=== PATIENT | female | born 1960 | race Caucasian/White ===

== ENCOUNTER → 2022-10-20 07:34 | Outpatient (BNVA) | payer BC, SELFPAY | PROVIDERS: PCP Family Medicine; Visit Provider Student in an Organized Health Care Education/Training Program | DX: Z13.89 Encounter for screening for other disorder (principal) ==

== ENCOUNTER 2022-10-20 08:29 | Outpatient (REF) | payer BC, SELFPAY ==
[2022-10-20 08:50] LABS: MANUAL DIFF FLAG NO
[2022-10-20 09:18] LABS: Basophils Absolute Auto 0.1 X10*3/uL (0.0-0.2); Basophils Percent Auto 1.4 % (0-2); Eosinophils Absolute Auto 0.1 X10*3/uL (0.0-0.4); Eosinophils Percent Auto 2.3 % (0-4); Hematocrit 36.6 % (37.0-47.0); Hemoglobin 11.9 g/dl (12.0-16.0); Imm Gran Abs Auto 0.01 X10*3/uL (0.00-0.03); Imm Gran Pct Auto 0.3 % (0.0-0.4); Lymphocytes Absolute Auto 0.5 X10*3/uL (1.2-4.9); Lymphocytes Percent Auto 14.8 % (20-40); Mean Corpuscular HGB Conc 32.5 g/dl (31.0-35.0); Mean Corpuscular Volume 86.1 fL (80.0-98.0); Monocytes Absolute Auto 0.3 X10*3/uL (0.1-1.2); Monocytes Percent Auto 8.4 % (2-11); Neutrophils Absolute Auto 2.5 x10*3/uL (2.0-8.3); Neutrophils Percent Auto 72.8 % (45-73); Platelet Count 194 X10*3/uL (160-400); Red Blood Count 4.25 X10*6/uL (4.20-5.50); Red Cell Distribution Width 15.3 % (11.0-16.0); White Blood Count 3.5 X10*3/uL (4.8-10.8)
[2022-10-20 09:30] LABS: Appearance Urine Clear; Color Urine Yellow; Glucose Urine UA Negative (Negative); Leukocyte Esterase Urine Moderate (2+) (Negative); Nitrite Urine Negative (Negative); PH 5.5 (5.0-9.0); UMIC TRIGGER UA YES; Urine Blood Negative (Negative); Urine Ketones Negative (Negative); Urine Protein Negative (Neg-Trace)
[2022-10-20 09:36] LABS: Bacteria Urine None Seen (None Seen); Hyaline Casts Urine 0-2 /LPF (0-2)
[2022-10-20 09:52] LABS: Creatinine Urine 91.61 mg/dL; Protein/Creatinine Ratio, Ur 0.11 (<0.2); Total Protein Urine Random 10 mg/dL (<12)
[2022-10-20 10:01] LABS: Alanine Aminotransferase 59 U/L (0-31); Albumin Level 4.2 g/dL (3.5-5.0); Alkaline Phosphatase 104 U/L (39-117); Anion Gap 12 (12-20); Aspartate Amino Transferase 41 U/L (5-31); Bilirubin Total 0.4 mg/dL (0.0-1.0); Blood Urea Nitrogen 27 mg/dL (9-16); C Reactive Protein < 0.04 mg/dL (< or = 0.50); Calcium 9.7 mg/dL (8.4-10.2); Carbon Dioxide 27 mmol/L (22-29); Chloride 105 mmol/L (96-108); Estimated Glomerular Filt Rate > 60; Glucose Random 98 mg/dL (60-115); Potassium 4.3 mmol/L (3.3-5.1); Rheumatoid Factor < 13.0 IU/mL (<15.0); Sodium 140 mmol/L (135-145); Total Protein 7.6 g/dL (6.5-8.0)
[2022-10-20 10:07] LABS: Erythrocyte Sedimentation Rate 23 MM/HR (0-20)
[2022-10-21 05:02] LABS: HBsAGNum1 0.31 S/CO (0.00-0.99); Hepatitis A Antibody IgM 0.14 Index (0-0.79); Hepatitis B Core Antibody Nonreactive (Nonreactive); Hepatitis B Surface Antigen Negative (Negative); ~Hepatitis A Antibody IgM Nonreactive (Nonreactive); ~Hepatitis B Surface Antibody NONREACTIVE (Nonreactive); ~Hepatitis C Antibody Nonreactive (Nonreactive)
[2022-10-21 13:43] LABS: Complement C3 157 mg/dL (83-193)
[2022-10-22 10:37] LABS: TS Negative Control Passed; TS Panel A 0; TS Panel B 0; TS Positive Control Passed; TSpotTB Negative (Negative)
[2022-10-22 13:23] LABS: Anti DNA DS Antibody <1 IU/mL; Antibody to SS-A Antigen <1.0 NEG AI (<1.0 NEG); Antibody to SS-B Antigen <1.0 NEG AI (<1.0 NEG); Myeloperoxidase Antibody <1.0 AI; Proteinase 3 PR3 Antibodies <1.0 AI; SM/Ribonucleoprotein Ab <1.0 NEG AI (<1.0 NEG); Smith Protein <1.0 NEG AI (<1.0 NEG)
[2022-10-22 13:44] LABS: Cardiolipin IgG Ab <2.0 GPL-U/mL; Cardiolipin IgM Ab <2.0 MPL-U/mL
[2022-10-22 15:04] LABS: Anti Nuclear Antibody Screen NEGATIVE (NEGATIVE)
[2022-10-22 15:34] LABS: IgA 327 mg/dL (70-320); IgG 1718 mg/dL (600-1540); IgM 104 mg/dL (50-300)
[2022-10-22 23:04] LABS: Prot Elec - Alpha1 0.4 g/dL (0.2-0.3); Prot Elec - Alpha2 0.7 g/dL (0.5-0.9); Prot Elec - Beta 1 0.5 g/dL (0.4-0.6); Prot Elec - Beta 2 0.5 g/dL (0.2-0.5); Prot Elec - Gamma 1.5 g/dL (0.8-1.7); Prot Elec - Total Protein 7.7 g/dL (6.1-8.1)
[2022-10-23 13:08] LABS: Cyclic Citrullinated Peptide <16 UNITS
[2022-10-23 13:13] LABS: PTT (LAC) Screen 35 sec (<=40)
[2022-10-23 21:57] LABS: Angiotensin Converting Enzyme 78 U/L (9-67)
[2022-10-26 00:44] LABS: VITAMIN D (1,25 OH) D3 46 pg/mL; Vit D (1,25-Dihydroxy) Total 46 pg/mL (18-72); Vitamin D (1,25 OH) D2 <8 pg/mL
[2022-10-26 05:29] LABS: Beta-2 Glycoprotein IgA <2.0 U/mL (<20.0); Beta-2 Glycoprotein IgG <2.0 U/mL (<20.0); Beta-2 Glycoprotein IgM <2.0 U/mL (<20.0)
[2022-10-26 15:25] LABS: Vitamin D 25-OH, D2 <4 ng/mL; Vitamin D 25-OH, D3 34 ng/mL; Vitamin D 25-OH, Total 34 ng/mL (30-100)
[2022-10-26 23:14] LABS: Lysozyme, Serum 10.5 mcg/mL (5.0-11.0)
[2022-10-27 14:59] LABS: DNAds, Crithidia Antibody Negative (Negative)
== END 2022-10-20 08:30 | disposition home or self-care (01) ==
LOC: HO.10HDL 08:29
PROVIDERS: Visit Provider Student in an Organized Health Care Education/Training Program
DX: Z11.59 Encounter for screening for other viral diseases (principal); Z11.7 Encounter for testing for latent tuberculosis infection; I77.6 Arteritis, unspecified; D68.61 Antiphospholipid syndrome; M06.9 Rheumatoid arthritis, unspecified; D86.9 Sarcoidosis, unspecified; M32.9 Systemic lupus erythematosus, unspecified
CPT/HCPCS: 36415; 80053; 81001; 82164; 82306; 82550; 82652; 82784; 84156; 84165; 85025; 85549; 85597; 85613; 85652; 85730; 86021; 86038; 86039; 86140; 86146; 86147; 86160; 86200; 86225; 86235; 86255; 86334; 86431; 86481; 86704; 86706; 86709; 86803; 87340

== ENCOUNTER → 2022-12-23 07:32 | Outpatient (BNVA) | payer BC, SELFPAY | PROVIDERS: PCP Family Medicine; Visit Provider Student in an Organized Health Care Education/Training Program | DX: Z13.89 Encounter for screening for other disorder (principal) ==

== ENCOUNTER 2023-05-26 07:29 | Outpatient (AMB) | payer BC, SELFPAY ==
[2023-05-26 07:34] VITALS: BP 114/76; PULSE 70; TEMP 36.3; O2SAT 96; BMI 35.1
--- NOTE | 2023-05-26 07:34 | A.OFFVIS_ITS ---
Intake Vital Signs 05/26/23 07:34 Height 5 ft 5 in Weight 210 lb 15.718 oz BMI 35.1 BP 114/76 Blood Pressure Location Rt brachial Position Sitting Pulse 70 Pulse Source Pulse Oximeter Temp 97.3 F Temp Source Skin Pulse Oximetry (%) 96 Oxygen Delivery Method Room Air Intake Visit Reasons: Sarcoidosis Intake Note: Patient here to follow up on sarcoidosis. 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 Assistant Required: No Accompanied by: Self / Same As Patient Allergies bee pollen Allergy (Unknown, Verified 05/26/23 07:37) unknown lisinopril Allergy (Unknown, Verified 05/26/23 07:37) unknown Medication List - Last Reconciled 05/26/23 by Brittany Hamilton MD albuterol sulfate 90 mcg/actuation (ProAir HFA) 2 puffs inhalation Q6H PRN budesonide 180 mcg/actuation (Pulmicort Flexhaler) 1 inh inhalation BID PRN fluticasone propionate 50 mcg/actuation (Allergy Relief (fluticasone)) 1 spray intranasal DAILY folic acid 1 mg PO DAILY hydrochlorothiazide 12.5 mg PO DAILY methotrexate sodium 20 mg PO QWEEK naproxen 500 mg PO BID HPI HPI Comments History of Present Illness Details 63-year-old female with sarcoidosis returns for follow-up. she just returned from [facility]. Patient states that she had a good trip. She did a lot of walking. She was taking 500 mg of Aleve daily for knee pain. States that she gets a little bit short of breath when walking up hill compared to the young graduate students for with her in that trip. States that she continues to get the painful erythema nodosum bumps on her legs. Some of the old lesions have receded and she is having new ones. They are not painful except when pressed. Continues on methotrexate 20 mg weekly Initial history: This is a 62-year-old female with a past medical history of sarcoidosis who presents for evaluation of Sarcoidosis. The condition started in 2019 with some shortness of breath, she was found to have multiple nasal lesions. Nasal biopsy showed granulomatous disease. She was also found to have lupus pernio. She was evaluated by manager personnel selection Dr. Newton and started on hydroxychloroquine as well as steroid nasal sprays with significant improvement. Her loop her spirit new lesions have resolved. Chest CT showed mediastinal adenopathy and some interstitial changes. Patient denies any significant shortness of breath. Stated she walked an hour and a half a few weeks ago. In November of 2021 she started having left eye blurry vision. She was initially started on steroid eyedrops without significant improvement, she was then evaluated by Dr. Jose Yeh & was started are on another course of steroid eyedrops and she was recently started on methotrexate in August of 2022. She is currently on methotrexate 6 tabs weekly and hydroxychloroquine has been discontinued. She never took oral steroids. Today patient feels well overall except for left eye blurry vision. She states that her left eye symptoms have stabilized and might be starting to improve. [facility] Medical History Adenomatous colon polyp Antiphospholipid antibody syndrome Atrophic gastritis Benign essential hypertension Breast cancer Iron (Fe) deficiency anemia Morbid obesity Rhinorrhea Sarcoidosis Vitamin B12 deficiency Surgical History History of appendectomy Hx of tubal ligation S/P mastectomy, bilateral Family History Mother Autoimmune hemolytic anemia Sister Myocardial infarct Maternal Grandfather Myocardial infarct Social History Household Members: Spouse Housing: House Alcohol intake: current Alcohol intake frequency: a few times a week Alcohol type: beer and wine Patient Tobacco Use Status: Never used Tobacco e-Cigarette/Vaping Use: Never Used service: No Current occupational status: employed 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 [employer] Review of Systems Const All systems reviewed & are unremarkable except as noted in HPI and below Denies fever(s) Musc Reports arthralgias and Reports stiffness Skin/Breast Reports new lesions Neuro Reports no additional complaints Physical Exam Vital Signs: Last Vital Signs Temp 97.3 F 05/26/23 07:34 Pulse 70 05/26/23 07:34 BP 114/76 05/26/23 07:34 Pulse Ox 96 05/26/23 07:34 Oxygen Delivery Method Room Air 05/26/23 07:34 BMI result Body Mass Index 35.1 Const General: cooperative, healthy appearing and comfortable Nutritional Appearance: obese Orientation/consciousness: patient oriented x3 Limitations: no limitations HEENT Head: Yes normocephalic and Yes atraumatic General nose exam: Normal external nose present Resp Effort & Inspection: normal respiratory effort and able to speak in complete sentences Cardio Rate: regular rate Rhythm: regular rhythm Heart sounds: S1 normal heart sound present and S2 normal heart sound present GI Inspection: No distended Palpation (GI): Soft to palpation and nontender Skin Other: Solid nodular firm lesions on her calves. Mildly tender when pressed. Some of the older lesions on the anterior surface of her shins are smaller now. Neuro General: patient oriented x3 Extrem Other: No active synovitis Normal nailfold capillaroscopy Bilateral knee crepitus, worse on the right, right knee pain will with flexion Results Reviewed Results Reviewed: * 06/2019 with mild lymphopenia, absolute lymphocytic count 0.7.? Severe vitamin-D deficiency.Nasal biopsy:? Granulomatous inflammation?Chest x-ray 2019:? Nonspecific interstitial changes.? Mildly progressive compared to priorChest CT 2019:? Bilateral bronchovascular and interstitial densities.? Question underlying nodule in the right upper lobe.? Evidence of mild mediastinal adenopathy with calcified lymph nodes within the mediastinum as well as hilum bilaterally consistent with old granulomatous disease.??Full PFTs 08/2019 demonstrating isolated mild decreased DLCO 65% of predicted, with otherwise preserved spirometry and lung volume PFT 09/2020?Impression abnormal pulmonary function studies with evidence of preserved spirometry and lung volumes with isolated reduction in diffusion capacity. PFT 08/2019Impression:? Abnormal pulmonary function studies as evidence primarily by an isolated mild impairment in diffusion capacity 65% predicted.? Which in this clinical context may be secondary to anemia, early interstitial lung disease or pulmonary vascular disease.? Lung volumes are normal Ultrasound non Vascular bilateral lower extremity: Impression ill-defined isoechoic nodular masses in the subcutaneous tissues of both lower legs. These are not simple fluid. Some may represent lipomas, however others do not have the typical appearance and characterization by ultrasound is not definitive. Additional imaging strategies can be discussed Labs in 11/04/2022 showed normal CBC and CMP with normal LFTs Assessment & Plan Assessment & Plan (1) Sarcoidosis: Comment: Diagnosed in 2019 with nasal lesions, biopsy showing granulomatous inflammation Bilateral hilar adenopathy and interstitial changes on chest CT Iritis 11/2021 lupus pernio Lymphopenia HCQ started in 2018, then switched to methotrexate 08/2022 due to uveitis HCQ restarted in 05/2023 due to erythema nodosum Code(s): D86.9 - Sarcoidosis, unspecified Plan: This is a 63-year-old female with past medical history of sarcoidosis who presents for follow-up. On methotrexate 20 mg weekly managed by Pulmonary. Patient continues to get recurrent erythema nodosum lesions. These were biopsied. Patient will send me the report. It seems that these lesions started after hydroxychloroquine was discontinued. Start hydroxychloroquine trial 200 mg daily and re-evaluate. 2D echo is scheduled today Patient to send me any labs she gets done through the portal Follow-up in 4 months (2) Bilateral primary osteoarthritis of knee: Code(s): M17.0 - Bilateral primary osteoarthritis of knee Plan: Advised patient to try using Voltaren gel 4 times a day. Try to limit Aleve usage. Can consider any injection in the future if symptoms are worsening. Plan I spent 26 minutes reviewing patient's chart, evaluating patient counseling patient and documenting in the chart Medications: New hydroxychloroquine 200 mg PO BID 180 tabs 1RF Coding Level of Care Code Est Pt Level 4 (00447) Diagnoses Sarcoidosis D86.9 Bilateral primary osteoarthritis of knee M17.0
== END 2023-05-26 08:03 | disposition home or self-care (01) ==
PROVIDERS: PCP Family Medicine; Visit Provider Student in an Organized Health Care Education/Training Program
DX: D86.9 Sarcoidosis, unspecified (principal); M17.0 Bilateral primary osteoarthritis of knee
CPT/HCPCS: 99214

== ENCOUNTER → 2023-05-26 07:29 | Outpatient (BNVA) | payer BC, SELFPAY | PROVIDERS: Visit Provider Student in an Organized Health Care Education/Training Program ==

== ENCOUNTER 2023-09-27 07:37 | Outpatient (AMB) | payer BC, SELFPAY ==
--- NOTE | 2023-09-27 07:38 | MHC.OFFVIS ---
Intake Intake Visit Reasons: Sarcoidosis Intake Note: Pt last seen 05/26/23. Telehealth follow up and test results. Hydrology Professor Required: No Allergies bee pollen Allergy (Unknown, Verified 09/27/23 07:41) unknown lisinopril Allergy (Unknown, Verified 09/27/23 07:41) unknown Medication List - Last Reconciled 09/27/23 by Brittany Hamilton MD albuterol sulfate 90 mcg/actuation (ProAir HFA) 2 puffs inhalation Q6H PRN budesonide 180 mcg/actuation (Pulmicort Flexhaler) 1 inh inhalation BID PRN fluticasone propionate 50 mcg/actuation (Allergy Relief (fluticasone)) 1 spray intranasal DAILY folic acid 1 mg PO DAILY hydrochlorothiazide 12.5 mg PO DAILY hydroxychloroquine 200 mg PO BID methotrexate sodium 20 mg PO QWEEK naproxen 500 mg PO BID HPI HPI Comments History of Present Illness Details 63-year-old female with sarcoidosis returns for Telehealth phone visit. She is on methotrexate 20 mg weekly, hydroxychloroquine 200 mg Twice daily folic acid 1 mg daily. She states that the leg bumps are smaller and much less numerous overall. She feels that hydroxychloroquine is helping. She has not had any side effects to hydroxychloroquine. She was recently evaluated by Dr. Yeh back in May and was told that her uveitis is stable and was told that generally methotrexate can be tapered after about 2 years when uveitis is stable, but the decision is shared among the multicultural services librarian, alterations workroom clerk and car changer. Initial history: This is a 62-year-old female with a past medical history of sarcoidosis who presents for evaluation of Sarcoidosis. The condition started in 2018 with some shortness of breath, she was found to have multiple nasal lesions. Nasal biopsy showed granulomatous disease. She was also found to have lupus pernio. She was evaluated by alterations workroom clerk Dr. Newton and started on hydroxychloroquine as well as steroid nasal sprays with significant improvement. Her loop her spirit new lesions have resolved. Chest CT showed mediastinal adenopathy and some interstitial changes. Patient denies any significant shortness of breath. Stated she walked an hour and a half a few weeks ago. In November of 2021 she started having left eye blurry vision. She was initially started on steroid eyedrops without significant improvement, she was then evaluated by Dr. Jose Yeh & was started are on another course of steroid eyedrops and she was recently started on methotrexate in August of 2022. She is currently on methotrexate 6 tabs weekly and hydroxychloroquine has been discontinued. She never took oral steroids. Today patient feels well overall except for left eye blurry vision. She states that her left eye symptoms have stabilized and might be starting to improve. [facility] Medical History Breast cancer Adenomatous colon polyp Benign essential hypertension Sarcoidosis Iron (Fe) deficiency anemia Atrophic gastritis Rhinorrhea Morbid obesity Vitamin B12 deficiency Surgical History Hx of tubal ligation S/P mastectomy, bilateral History of appendectomy Family History Mother Autoimmune hemolytic anemia Sister Myocardial infarct Maternal Grandfather Myocardial infarct Social History Household Members: Spouse Housing: House Alcohol intake: current Alcohol intake frequency: a few times a week Alcohol type: beer and wine Patient Tobacco Use Status: Never used Tobacco e-Cigarette/Vaping Use: Never Used service: No Current occupational status: employed 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 Severe vitamin-D deficiency.Nasal biopsy:? Granulomatous inflammation?Chest x-ray 2019:? Nonspecific interstitial changes.? Mildly progressive compared to priorChest CT 2019:? Bilateral bronchovascular and interstitial densities.? Question underlying nodule in the right upper lobe.? Evidence of mild mediastinal adenopathy with calcified lymph nodes within the mediastinum as well as hilum bilaterally consistent with old granulomatous disease.??Full PFTs 08/2019 demonstrating isolated mild decreased DLCO 65% of predicted, with otherwise preserved spirometry and lung volume PFT 09/2020?Impression abnormal pulmonary function studies with evidence of preserved spirometry and lung volumes with isolated reduction in diffusion capacity. PFT 08/2019Impression:? Abnormal pulmonary function studies as evidence primarily by an isolated mild impairment in diffusion capacity 65% predicted.? Which in this clinical context may be secondary to anemia, early interstitial lung disease or pulmonary vascular disease.? Lung volumes are normal Ultrasound non Vascular bilateral lower extremity: Impression ill-defined isoechoic nodular masses in the subcutaneous tissues of both lower legs. These are not simple fluid. Some may represent lipomas, however others do not have the typical appearance and characterization by ultrasound is not definitive. Additional imaging strategies can be discussed Labs in 11/04/2022 showed normal CBC and CMP with normal LFTs Assessment & Plan Assessment & Plan (1) Sarcoidosis: Comment: Diagnosed in 2018 with nasal lesions, biopsy showing granulomatous inflammation Bilateral hilar adenopathy and interstitial changes on chest CT Iritis 11/2021 lupus pernio Lymphopenia Erythema nodosum HCQ started in 2018, then switched to methotrexate 08/2022 due to uveitis HCQ restarted in 05/2023 due to erythema nodosum effective Code(s): D86.9 - Sarcoidosis, unspecified Plan: This is a 63-year-old female with past medical history of sarcoidosis who presents for tele health phone visit. On methotrexate 20 mg weekly managed by Pulmonary, and hydroxychloroquine 200 mg Twice daily Patient's mentions that her erythema nodosum lesions are improving. Was evaluated by Dr. Rao moore in May and was told that uveitis is under control. Continue hydroxychloroquine 200 mg Twice daily, methotrexate 20 mg weekly managed by Pulmonary and folic acid 1 mg daily Follow-up in 4 months (2) Bilateral primary osteoarthritis of knee: Code(s): M17.0 - Bilateral primary osteoarthritis of knee Plan: She uses Voltaren gel early in the morning with some relief, does not have time for another application during the day. Uses naproxen about once a week Symptoms overall fairly well controlled (3) Long-term use of hydroxychloroquine: Code(s): Z79.899 - Other buttermaker continuous churn (current) drug therapy Plan: Patient was evaluated by Dr. Rao moore in May and is scheduled to go back for additional testing (4) Immunization counseling: Code(s): Z71.85 - Encounter for immunization safety counseling Plan: Patient received a flu vaccine and scheduled the COVID booster. Advised patient to hold methotrexate 1 dose after vaccination Plan I spent 10 minutes on the phone with patient, additional 10 minutes were spent reviewing her chart and documenting in the note Telehealth Telehealth Location of provider rendering services: practice address Location of patient: address on file Patient Identification confirmed using: Name, : Yes Telehealth method: voice only Patient verbally consented to treatment: Yes Patient verbally consented to billing insurance company: Yes Patient informed of any privacy concerns related to visit: Yes Coding Level of Care Code Tele Est Pt Level 4 (68821) Diagnoses Sarcoidosis D86.9 Bilateral primary osteoarthritis of knee M17.0 Long-term use of hydroxychloroquine Z79.899 Immunization counseling Z71.85
== END 2023-09-27 08:23 | disposition home or self-care (01) ==
LOC: HO.RHE 07:37
PROVIDERS: PCP Family Medicine; Visit Provider Student in an Organized Health Care Education/Training Program
DX: D86.9 Sarcoidosis, unspecified (principal); M17.0 Bilateral primary osteoarthritis of knee; Z79.899 Other long term (current) drug therapy; Z71.85 Encounter for immunization safety counseling
CPT/HCPCS: 99442

== ENCOUNTER → 2023-09-27 07:37 | Outpatient (BNVA) | payer BC, SELFPAY | PROVIDERS: PCP Family Medicine; Visit Provider Student in an Organized Health Care Education/Training Program ==

== ENCOUNTER 2024-02-23 07:30 | Outpatient (AMB) | payer BC, SELFPAY ==
--- NOTE | 2024-02-23 07:38 | MHC.OFFVIS ---
Vital Signs 02/23/24 07:39 Height 5 ft 5 in Weight 210 lb 5.136 oz BMI 35.0 BP 122/64 Blood Pressure Location Rt brachial Position Sitting Pulse 69 Pulse Source Pulse Oximeter Pulse Oximetry (%) 96 Oxygen Delivery Method Room Air Intake Visit Reasons: sarcoidosis Clothing Designer Required: No Accompanied by: Self / Same As Patient Allergies bee pollen Allergy (Unknown, Verified 02/23/24 07:45) unknown lisinopril Allergy (Unknown, Verified 02/23/24 07:45) unknown Medication List - Last Reconciled 02/23/24 by Brittany Hamilton MD albuterol sulfate 90 mcg/actuation (ProAir HFA) 2 puffs inhalation Q6H PRN budesonide 180 mcg/actuation (Pulmicort Flexhaler) 1 inh inhalation BID PRN fluticasone propionate 50 mcg/actuation (Allergy Relief (fluticasone)) 1 spray intranasal DAILY folic acid 1 mg PO DAILY hydrochlorothiazide 12.5 mg PO DAILY hydroxychloroquine 200 mg PO BID methotrexate sodium 20 mg PO QWEEK naproxen 500 mg PO .QD PRN HPI Comments Details: 63-year-old female with sarcoidosis returns for follow-up. She states that she is doing well overall. She was in [place] for research in the spring and did plenty of walking. She feels that her exercise capacity is improving. Erythema nodosum lesions on her shins are improving and smaller but she can still feel him if she bumps into things. Denies any skin rashes. She states that since she returned from [place] she feels that her allergies are worse. Initial history: This is a 62-year-old female with a past medical history of sarcoidosis who presents for evaluation of Sarcoidosis. The condition started in 2019 with some shortness of breath, she was found to have multiple nasal lesions. Nasal biopsy showed granulomatous disease. She was also found to have lupus pernio. She was evaluated by physician office clin asst Dr. Newton and started on hydroxychloroquine as well as steroid nasal sprays with significant improvement. Her loop her spirit new lesions have resolved. Chest CT showed mediastinal adenopathy and some interstitial changes. Patient denies any significant shortness of breath. Stated she walked an hour and a half a few weeks ago. In November of 2021 she started having left eye blurry vision. She was initially started on steroid eyedrops without significant improvement, she was then evaluated by Dr. Jose Yeh & was started are on another course of steroid eyedrops and she was recently started on methotrexate in August of 2022. She is currently on methotrexate 6 tabs weekly and hydroxychloroquine has been discontinued. She never took oral steroids. Today patient feels well overall except for left eye blurry vision. She states that her left eye symptoms have stabilized and might be starting to improve. [facility] Medical History Breast cancer Adenomatous colon polyp Benign essential hypertension Sarcoidosis Iron (Fe) deficiency anemia Atrophic gastritis Rhinorrhea Morbid obesity Vitamin B12 deficiency Surgical History Hx of tubal ligation S/P mastectomy, bilateral History of appendectomy Family History Mother Autoimmune hemolytic anemia Sister Myocardial infarct Maternal Grandfather Myocardial infarct Social History Household Members: Spouse Housing: House Alcohol intake: current Alcohol intake frequency: a few times a week Alcohol type: beer and wine Patient Tobacco Use Status: Never used Tobacco e-Cigarette/Vaping Use: Never Used service: No Current occupational status: employed 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 [employer] Female Reproductive History Menstrual Total pregnancies: 3 Number of Living Children: 2 Ab induced: 1 Review of Systems Const All systems reviewed & are unremarkable except as noted in HPI and below Denies fever(s) Skin/Breast Details: Lesions improveing Neuro Reports no additional complaints Physical Exam Vital Signs: Last Vital Signs Pulse 69 02/23/24 07:39 BP 122/64 02/23/24 07:39 Pulse Ox 96 02/23/24 07:39 Oxygen Delivery Method Room Air 02/23/24 07:39 BMI result Body Mass Index 35.0 Const General: cooperative and comfortable Nutritional Appearance: obese Orientation/consciousness: patient oriented x3 Limitations: no limitations HEENT Head: Yes normocephalic and Yes atraumatic General nose exam: Normal external nose present Resp Effort & Inspection: normal respiratory effort and able to speak in complete sentences Auscultation: crackles bilateral at the base and wheezes Cardio Rate: regular rate Rhythm: regular rhythm Heart sounds: S1 normal heart sound present and S2 normal heart sound present GI Inspection: No distended Palpation (GI): Soft to palpation and nontender Skin Other: Small firm lesion on the entero medial aspect her leg just above her right ankle. Minimally tender to palpation Puckering of the skin in the left calf posteriorly likely sequela from erythema nodosum Neuro General: patient oriented x3 Extrem Other: No active synovitis Normal nailfold capillaroscopy Bilateral knee crepitus, worse on the right, Results Reviewed Results Reviewed: 06/2019 with mild lymphopenia, absolute lymphocytic count 0.7.? Severe vitamin-D deficiency.Nasal biopsy:? Granulomatous inflammation?Chest x-ray 2019:? Nonspecific interstitial changes.? Mildly progressive compared to priorChest CT 2019:? Bilateral bronchovascular and interstitial densities.? Question underlying nodule in the right upper lobe.? Evidence of mild mediastinal adenopathy with calcified lymph nodes within the mediastinum as well as hilum bilaterally consistent with old granulomatous disease.??Full PFTs 08/2019 demonstrating isolated mild decreased DLCO 65% of predicted, with otherwise preserved spirometry and lung volume PFT 09/2020?Impression abnormal pulmonary function studies with evidence of preserved spirometry and lung volumes with isolated reduction in diffusion capacity. PFT 08/2019Impression:? Abnormal pulmonary function studies as evidence primarily by an isolated mild impairment in diffusion capacity 65% predicted.? Which in this clinical context may be secondary to anemia, early interstitial lung disease or pulmonary vascular disease.? Lung volumes are normal Ultrasound non Vascular bilateral lower extremity: Impression ill-defined isoechoic nodular masses in the subcutaneous tissues of both lower legs. These are not simple fluid. Some may represent lipomas, however others do not have the typical appearance and characterization by ultrasound is not definitive. Additional imaging strategies can be discussed Labs in 11/04/2022 showed normal CBC and CMP with normal LFTs Assessment & Plan Assessment & Plan (1) Sarcoidosis: Comment: Diagnosed in 2019 with nasal lesions, biopsy showing granulomatous inflammation Bilateral hilar adenopathy and interstitial changes on chest CT Iritis 11/2021 lupus pernio Lymphopenia Erythema nodosum HCQ started in 2018, then switched to methotrexate 08/2022 due to uveitis HCQ restarted in 05/2023 due to erythema nodosum effective Code(s): D86.9 - Sarcoidosis, unspecified Category: Medical Plan: This is a 63-year-old female with sarcoidosis who presents fo follow-up On methotrexate 20 mg weekly managed by Pulmonary, and hydroxychloroquine 200 mg Twice daily Erythema nodosum lesions are improving and getting smaller. Patient is doing well overall. Continue current meds. Follow-up in 6 months (2) Bilateral primary osteoarthritis of knee: Code(s): M17.0 - Bilateral primary osteoarthritis of knee Category: Medical Plan: Takes naproxen about once a week as needed. Also uses Voltaren gel when needed. Overall symptoms are well controlled (3) Long-term use of hydroxychloroquine: Code(s): Z79.899 - Other rat exterminator (current) drug therapy Category: Medical Plan: Follows up regularly with corrective and manual arts therapist (4) Asthma: Code(s): J45.909 - Unspecified asthma, uncomplicated Category: Medical Qualifiers: Asthma severity: mild Asthma persistence: intermittent Asthma complication type: uncomplicated Qualified Code(s): J45.20 - Mild intermittent asthma, uncomplicated Plan: Wheezing on exam. Perhaps related to seasonal allergies. Advised patient to use her Pulmicort inhaler regularly, follow-up with Dr. Avila if symptoms are worsening Plan I spent 30 minutes on the phone with patient, additional 10 minutes were spent reviewing her chart and documenting in the note Medications: Changed From naproxen 500 mg PO BID 60 tabs 1RF To naproxen 500 mg PO .QD PRN Coding Level of Care Code Est Pt Level 5 (48092) Diagnoses Sarcoidosis D86.9 Bilateral primary osteoarthritis of knee M17.0 Long-term use of hydroxychloroquine Z79.899 Mild intermittent asthma without complication J45.20 Asthma severity: mild Asthma persistence: intermittent Asthma complication type: uncomplicated
[2024-02-23 07:39] VITALS: BP 122/64; PULSE 69; O2SAT 96; BMI 35.0
== END 2024-02-23 08:07 | disposition home or self-care (01) ==
PROVIDERS: PCP Family Medicine; Visit Provider Student in an Organized Health Care Education/Training Program
DX: D86.9 Sarcoidosis, unspecified (principal); M17.0 Bilateral primary osteoarthritis of knee; Z79.899 Other long term (current) drug therapy; J45.20 Mild intermittent asthma, uncomplicated
CPT/HCPCS: 99214

== ENCOUNTER → 2024-02-23 07:30 | Outpatient (BNVA) | payer BC, SELFPAY | PROVIDERS: PCP Family Medicine; Visit Provider Student in an Organized Health Care Education/Training Program ==

== ENCOUNTER 2024-08-23 07:32 | Outpatient (AMB) | payer BC, SELFPAY ==
--- NOTE | 2024-08-23 07:35 | MHC.OFFVIS ---
Vital Signs 08/23/24 07:39 Height 5 ft 5 in Weight 222 lb 0.088 oz BMI 36.9 BP 112/72 Blood Pressure Location Rt brachial Position Sitting Respiration 16 Pulse 74 Pulse Source Pulse Oximeter Pulse Oximetry (%) 94 Oxygen Delivery Method Room Air Intake Visit Reasons: Sarcoidosis/cm Intake Note: Patient presents for Sarcoidosis. Allergies bee pollen Allergy (Unknown, Verified 08/23/24 07:39) unknown lisinopril Allergy (Unknown, Verified 08/23/24 07:39) unknown Medication List - Last Reconciled 08/23/24 by Brittany Hamilton MD albuterol sulfate 90 mcg/actuation (ProAir HFA) 2 puffs inhalation Q6H PRN budesonide 180 mcg/actuation (Pulmicort Flexhaler) 1 inh inhalation BID PRN fluticasone propionate 50 mcg/actuation (Allergy Relief (fluticasone)) 1 spray intranasal DAILY folic acid 1 mg PO DAILY hydrochlorothiazide 12.5 mg PO DAILY hydroxychloroquine 200 mg PO BID methotrexate sodium 20 mg PO QWEEK naproxen 500 mg PO .QD PRN HPI Comments Details: 64-year-old female with sarcoidosis returns for follow-up. She remains on hydroxychloroquine 20 mg Twice daily and methotrexate 20 mg weekly. States that she is doing well overall. She is going for an eye procedure soon. She denies any joint pains or aches. The erythema nodosum not been a problem recently denies any significant shortness of breath. Initial history: This is a 62-year-old female with a past medical history of sarcoidosis who presents for evaluation of Sarcoidosis. The condition started in 2018 with some shortness of breath, she was found to have multiple nasal lesions. Nasal biopsy showed granulomatous disease. She was also found to have lupus pernio. She was evaluated by seam feller Dr. Newton and started on hydroxychloroquine as well as steroid nasal sprays with significant improvement. Her loop her spirit new lesions have resolved. Chest CT showed mediastinal adenopathy and some interstitial changes. Patient denies any significant shortness of breath. Stated she walked an hour and a half a few weeks ago. In November of 2021 she started having left eye blurry vision. She was initially started on steroid eyedrops without significant improvement, she was then evaluated by Dr. Jose Yeh & was started are on another course of steroid eyedrops and she was recently started on methotrexate in August of 2022. She is currently on methotrexate 6 tabs weekly and hydroxychloroquine has been discontinued. She never took oral steroids. Today patient feels well overall except for left eye blurry vision. She states that her left eye symptoms have stabilized and might be starting to improve. [facility] Medical History Breast cancer Adenomatous colon polyp Benign essential hypertension Sarcoidosis Iron (Fe) deficiency anemia Atrophic gastritis Rhinorrhea Morbid obesity Vitamin B12 deficiency Surgical History Hx of tubal ligation S/P mastectomy, bilateral History of appendectomy Family History Mother Autoimmune hemolytic anemia Sister Myocardial infarct Maternal Grandfather Myocardial infarct Social History Household Members: Spouse Housing: House Alcohol intake: current Alcohol intake frequency: a few times a week Alcohol type: beer and wine Patient Tobacco Use Status: Never used Tobacco e-Cigarette/Vaping Use: Never Used service: No Current occupational status: employed 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 [employer] Review of Systems Const All systems reviewed & are unremarkable except as noted in HPI and below Denies fever(s) Skin/Breast Details: Lesions improving Neuro Reports no additional complaints Physical Exam Vital Signs: Last Vital Signs Pulse 74 08/23/24 07:39 Resp 16 08/23/24 07:39 BP 112/72 08/23/24 07:39 Pulse Ox 94 08/23/24 07:39 Oxygen Delivery Method Room Air 08/23/24 07:39 BMI result Body Mass Index 36.9 Const General: cooperative and comfortable Nutritional Appearance: obese Orientation/consciousness: patient oriented x3 Limitations: no limitations HEENT Head: Yes normocephalic and Yes atraumatic General nose exam: Normal external nose present Resp Effort & Inspection: normal respiratory effort and able to speak in complete sentences Cardio Rate: regular rate Rhythm: regular rhythm Heart sounds: S1 normal heart sound present and S2 normal heart sound present GI Inspection: No distended Palpation (GI): Soft to palpation and nontender Skin Other: No palpable erythema nodosum lesions today Neuro General: patient oriented x3 Extrem Other: No active synovitis Normal nailfold capillaroscopy Bilateral knee crepitus, worse on the right, Results Reviewed Results Reviewed: 06/2019 with mild lymphopenia, absolute lymphocytic count 0.7.? Severe vitamin-D deficiency.Nasal biopsy:? Granulomatous inflammation?Chest x-ray 2019:? Nonspecific interstitial changes.? Mildly progressive compared to priorChest CT 2019:? Bilateral bronchovascular and interstitial densities.? Question underlying nodule in the right upper lobe.? Evidence of mild mediastinal adenopathy with calcified lymph nodes within the mediastinum as well as hilum bilaterally consistent with old granulomatous disease.??Full PFTs 08/2019 demonstrating isolated mild decreased DLCO 65% of predicted, with otherwise preserved spirometry and lung volume PFT 09/2020?Impression abnormal pulmonary function studies with evidence of preserved spirometry and lung volumes with isolated reduction in diffusion capacity. PFT 08/2019Impression:? Abnormal pulmonary function studies as evidence primarily by an isolated mild impairment in diffusion capacity 65% predicted.? Which in this clinical context may be secondary to anemia, early interstitial lung disease or pulmonary vascular disease.? Lung volumes are normal Ultrasound non Vascular bilateral lower extremity: Impression ill-defined isoechoic nodular masses in the subcutaneous tissues of both lower legs. These are not simple fluid. Some may represent lipomas, however others do not have the typical appearance and characterization by ultrasound is not definitive. Additional imaging strategies can be discussed Labs in 11/04/2022 showed normal CBC and CMP with normal LFTs Assessment & Plan Assessment & Plan (1) Sarcoidosis: Comment: Diagnosed in 2019 with nasal lesions, biopsy showing granulomatous inflammation Bilateral hilar adenopathy and interstitial changes on chest CT Iritis 11/2021 lupus pernio Lymphopenia Erythema nodosum HCQ started in 2018, then switched to methotrexate 08/2022 due to uveitis HCQ restarted in 05/2023 due to erythema nodosum effective Code(s): D86.9 - Sarcoidosis, unspecified Category: Medical Plan: This is a 64-year-old female with sarcoidosis who presents for follow-up On methotrexate 20 mg weekly managed by Pulmonary, and hydroxychloroquine 200 mg Twice daily Erythema nodosum lesions are improving and getting smaller. Patient is doing well overall. Continue current meds. Labs before next visit in 6 months (2) Bilateral primary osteoarthritis of knee: Code(s): M17.0 - Bilateral primary osteoarthritis of knee Category: Medical Plan: Has not been a problem recently. (3) Long-term use of hydroxychloroquine: Code(s): Z79.899 - Other [facility] (current[facility] drug therapy Category: Medical Plan: Follows up regularly with vocational rehabilitation supervisor Plan I spent 25 minutes reviewing patient's chart, evaluating patient, ordering diagnostic workup, counseling patient and documenting in the chart Orders: Orders Complete Blood Count Auto Diff 6 Months D86.9 - Sarcoidosis, unspecified Comprehensive Met. Panel 6 Months D86.9 - Sarcoidosis, unspecified C Reactive Protein 6 Months D86.9 - Sarcoidosis, unspecified Angiotensin Converting Enzyme 6 Months D86.9 - Sarcoidosis, unspecified Erythrocyte Sedimentation Rate 6 Months D86.9 - Sarcoidosis, unspecified Coding Level of Care Code Est Pt Level 4 (55762) Complex EM visit Add On G2211 Diagnoses Sarcoidosis D86.9 Bilateral primary osteoarthritis of knee M17.0 Long-term use of hydroxychloroquine Z79.899
[2024-08-23 07:39] VITALS: BP 112/72; PULSE 74; RESP 16; O2SAT 94; BMI 36.9
== END 2024-08-23 07:57 | disposition home or self-care (01) ==
PROVIDERS: PCP Family Medicine; Visit Provider Student in an Organized Health Care Education/Training Program
DX: D86.9 Sarcoidosis, unspecified (principal); M17.0 Bilateral primary osteoarthritis of knee; Z79.899 Other long term (current) drug therapy
CPT/HCPCS: 99214

== ENCOUNTER 2025-02-16 14:20 | Outpatient (REF) | payer BC, SELFPAY ==
--- OUTSIDE RECORDS SUMMARY | 2025-02-16 14:26 | XMS_ITS | Continuity of Care Document ---
Author Organization [facility], , [facility], OFFICE Address [address] [place] [address] Care Team Providers Care House Mover Supervisor Name Role Phone ANGELITA AMADOR Primary Care Provider NOE AVILA Chef Concierge HENRI RECINOS Derrick Worker Well Service FRANCI VILLARREAL Heavy Mobile Equipment Operator CASTRO CAMPOS General Surgeon Assessment No assessment recorded. Plan of Treatment Reminders Order Date Submit Date Provider Last Modified By Organization Details Last Modified Time Details Appointments New Patient-1 5 2024 11:30A M Jameson Sanchez DPM Not available Not available Not available LAB Follow-Up 2024 07:30A M [facility] Lab Not available Not available Not available Wellness Visit 30 2024 09:15A M Angelita Amador MD Not available Not available Not available Lab lipid panel, serum 2024 025 [facility], [address] [place], [address], 02/14/2025 10:17:20 Referral podiatris t referral - right foot pain w bony changes, discuss tx options 2024 025 nelylucas Pizarro DPM, [address] [place], [address], 02/14/2025 10:04:43 otolaryng ologist referral - left sided pain behind cheek pain not respondin g to many OTC tx 2024 025 [facility], [address], [place], [address], 02/14/2025 10:11:31 Procedures None recorded. Surgeries None recorded. Imaging None recorded. Medication Orders None recorded. Patient TargetsNo targets recorded. 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 Referral fo r Pain in face left sided pain behind cheek pain not responding to many OTC tx Referring Physician: Angelita Amador [facility] Medicine, Encounter Date: 02/14/2025 Problems Name Problem SNOMED Code Status Onset Date Resolution Date Notes Provider Name and Address Organization Details Recorded Time Increase d blood pressure 84999198 Completed 08/31/2017 Sergei Jay MD [address] [place] [address], [phone] , [facility] 7 11:45:39 Benign essentia l hyperten alicja 4558522 Active 2015 Angelita Amador MD [address] [place] [address], [phone] , [facility] 2 14:23:10 Adenomat ous polyp of colon 097121458 Active 2018 GI requests q 3 years colonosc opy Angelita Amador MD [address] [place] [address], [phone] , [facility] 2 14:24:07 Obesity 926445690 Completed 201906/30/2022 Latrice Vallejo LPN [facility], [facility] 2 08:53:08 Vitamin D deficien cy 59683184 Active 2019 Angelita Amador MD [address] [place] [address], , [facility] 2 14:23:58 Sarcoido sis 07306810 Active 2019 with lupus tatyanao Angelita Amador MD [address] [place] [address], , [facility] 2 14:23:53 Iron deficien cy anemia 30647096 Completed 202008/16/2024 Angelita Amador MD [address] [place] [address], , [facility] 4 10:53:45 History of malignan t neoplasm of breast 842740423 Completed 202112/18/2021 Angelita Amador MD [address] [place] [address], , [facility] 2 14:23:21 Morbid obesity 022837998 Active 2021 BMI > or = 35 plus diagnosi s of HTN. Angelita Amador MD [address] [place] [address], , [facility] 3 14:23:22 Cobalami n deficien cy 586645108 Active 2021 Angelita Amador MD [address] [place] [address], , [facility] 2 09:20:19 Posterio r rhinorrh ea 35823697 Active 2021 Angelita Amador MD [address] [place] [address], , [facility] 2 09:21:21 Atrophic gastriti s 11442563 Active 2021 Angelita Amador MD [address] [place] [address], , [facility] 2 09:30:18 Posterio r pressure in eye 365860874 Active 2021 Angelita Amador MD [address] [place] [address], [address] , [facility] 2 09:30:19 Intersti tial lung disease 612044057 Active 2022 Angelita Amador MD [address] [place] [address], [address] , [facility] 3 14:30:34 Bilatera l age-rela benji nuclear cataract s 25787103813 9100 Active 2024 Angelita Amador MD [address] [place] [address], [phone] , [facility] 5 10:15:58 Abnormal findings on diagnost ic imaging of breast 343017121 Completed 200002/20/2010 Not Available [facility] 3 03:10:18 Nausea 184173035 Completed 200402/20/2010 Not Available [facility] 3 03:10:18 Liver function tests outside referenc e range 987140065 Completed 200402/20/2010 Not Available [facility] 3 03:10:18 Cough 34663597 Completed 08/09/2013 Not Available [facility] 3 02:01:07 Subcutan eous nodule 95790270 Completed 08/09/2013 Not Available [facility] 3 02:03:38 Diarrhea 06983663 Completed 200402/20/2010 Not Available [facility] 3 03:10:18 Primary malignan t neoplasm of female breast 75180229 Completed 200511/26/2021 Removal Reason: resolved Angelita Amador MD [address] [place] [address], [phone] , [facility] 2 15:26:08 Pain of hip region 78141210 Completed 08/09/2013 Not Available [facility] 3 02:01:32 Plantar fasciiti s 348528191 Completed 200702/20/2010 Not Available [facility] 3 03:10:18 Pure hypercho lesterol emia 538948063 Completed 200302/20/2010 Not Available [facility] 3 03:10:18 Eustachi an tube salpingi tis 594132007 Completed 02/20/2010 Not Available [facility] 3 03:10:18 Breast lump 04574472 Completed 200502/20/2010 Not Available [facility] 3 03:10:18 Pneumoni a 056146430 Completed 200302/20/2010 Not Available [facility] 3 03:10:18 Common cold 24928607 Completed 200302/20/2010 Not Available [facility] 3 03:10:18 Mammogra phy abnormal 123764405 Completed 200502/20/2010 Not Available [facility] 3 03:10:18 Chest pain 16055356 Completed 200002/20/2010 Not Available [facility] 3 03:10:18 Anal and rectal polyp 058738040 Completed 09/27/2019 Angelita Amador MD [address] [place] [address], [address] , [facility] 0 09:41:36 Problem Notes None recorded. Procedures Surgical History Date Name Laterality Status Provider Name and Address Organization Details Recorded Time 03/10/20 22 47943: Therapeutic Exercise completed Liliya Foy, PT [address] [place], [address], [facility] 03/10/2022 17:01:03 02/27/20 22 Physical Activity Counselling completed Liliya Foy, PT [address] [place], [address], [facility] 02/26/2022 09:25:32 02/27/20 22 73735: PT Eval Low Complexity completed Liliya Foy, PT [address] [place], [address], [facility] 02/26/2022 09:25:39 02/27/20 22 Treatment and Advice completed Liliya Foy, PT [address] [place], [address], [facility] 02/26/2022 09:25:31 10/01/19 22 Budhraja - Colonoscopy completed Franci Villarreal MD [address] [place], [address], [facility] 10/01/2021 10:25:08 10/25/19 21 prevention-cardio vascular risk reduction counseling completed Sulma Linton [facility] 10/25/2020 08:56:30 10/25/19 21 prevention-annual alcohol misuse screening completed Sulma Linton [facility] 10/25/2020 08:56:30 01/19/20 20 78120: Therapeutic Exercise completed Jameson Sahni, PT [address] [place], [address], [facility] 01/20/2020 09:19:36 01/19/20 20 Treatment and Advice completed Jameson Sahni, PT [address] [place], [address], [facility] 01/19/2020 17:43:13 11/09/19 20 83756: Therapeutic Exercise completed Jameson Sahni, PT [address] [place], [address], [facility] 11/09/2019 08:13:00 11/09/19 20 Treatment and Advice completed Jameson Sahni, PT [address] [place], [address], [facility] 11/09/2019 07:36:50 10/19/19 20 prevention-cardio vascular risk reduction counseling completed Sulma Linton [facility] 10/19/2019 16:44:02 10/19/19 20 prevention-annual alcohol misuse screening completed Sulma Linton [facility] 10/19/2019 16:44:02 10/19/19 20 50369: Therapeutic Exercise completed Jameson Sahni, PT [address] [place], [address], [facility] 10/19/2019 07:04:32 10/19/19 20 Treatment and Advice completed Jameson Sahni, PT [address] [place], [address], [facility] 10/19/2019 07:39:19 09/26/19 20 12215: Therapeutic Exercise completed Jameson Sahni, PT [address] [place], [address], [facility] 09/26/2019 07:33:57 09/26/19 Treatment and Advice completed Jameson Sahni, PT [address] [place], [address], [facility] 09/26/2019 07:08:30 09/05/20 19 47272: Therapeutic Exercise completed Jameson Sahni, PT [address] [place], [address], [facility] 09/06/2019 06:09:05 09/05/20 Treatment and Advice completed Jameson Sahni, PT [address] [place], [address], [facility] 09/05/2019 07:47:16 08/01/20 19 80356: Therapeutic Exercise completed Jameson Sahni, PT [address] [place], [address], [facility] 08/01/2019 07:41:02 08/01/20 Treatment and Advice completed Jameson Sahni, PT [address] [place], [address], [facility] 08/01/2019 07:32:31 07/18/20 19 Nebulizer Tx completed Farzaneh Cruz [facility] 07/18/2019 10:23:53 07/18/20 19 93707: Therapeutic Exercise completed Jameson Sahni, PT [address] [place], [address], [facility] 07/18/2019 07:31:03 07/18/20 19 Treatment and Advice completed Jameson Sahni, PT [address] [place], [address], [facility] 07/18/2019 07:30:00 07/04/20 19 56373: Therapeutic Exercise completed Jameson Sahni, PT [address] [place], [address], [facility] 07/04/2019 07:29:52 07/04/20 19 Treatment and Advice completed Jameson Sahni, PT [address] [place], [address], [facility] 07/04/2019 07:27:14 06/27/20 19 55954: Therapeutic Exercise completed Jameson Sahni, PT [address] [place], [address], [facility] 06/27/2019 07:38:03 06/27/20 19 Treatment and Advice completed Jameson Sahni, PT [address] [place], [address], [facility] 06/27/2019 07:40:12 05/30/20 19 Physical Activity Counselling completed Jameson Sahni, PT [address] [place], [address], [facility] 05/30/2019 07:41:18 05/30/20 19 72094: PT Eval Low Complexity completed Jameson Sahni, PT [address] [place], [address], [facility] 05/30/2019 07:41:18 05/30/20 19 Treatment and Advice completed Jameson Sahni, PT [address] [place], [address], [facility] 05/30/2019 08:05:46 05/23/20 19 Suture/staple Removal completed Bing Lovell MA [facility] 05/23/2019 10:23:26 05/23/20 19 Shingrix Admin completed Gabrielle Serrano LPN [facility] 05/23/2019 11:35:45 03/17/20 18 63214: Therapeutic Exercise completed Alphonse Faust, PT, DPT, [address], [address], [facility] 03/17/2018 15:29:07 03/17/20 18 Neuromuscular re-education completed Alphonse Faust, PT, DPT, [address], [address], [facility] 03/17/2018 15:29:12 03/09/20 18 Physical Activity Counselling completed Alphonse Faust, PT, DPT, CSCS [address] [place], [address], [facility] 03/09/2018 15:03:58 03/09/20 18 41858: PT Eval, Moderate Complexity completed Alphonse Faust, PT, DPT, CSCS [address] [place], [address], [facility] 03/09/2018 15:04:09 03/26/20 10 Treatment and Advice completed Jameson Sahni, PT [address] [place], [address], [facility] 03/26/2010 15:58:14 03/17/20 10 Treatment and Advice completed Jameson Sahni, PT [address] [place], [address], [facility] 03/17/2010 09:09:35 03/10/20 10 Treatment and Advice completed Jameson Sahni, PT [address] [place] [address], [address], [facility] 03/10/2010 08:47:36 Imaging Results None recorded. Procedure Notes None recorded. Medical Equipment None Reported. Allergies Allergen ID Allergen Name Allergen Category Reaction Reaction Severity Criticality Documentation Date Start Date Code Code System Note Provider Name and Address Organization Details Recorded Time 772982 lisinopri l medicatio n cough Not available Not available 08/16/2024 24324 RxNorm Angelita Mcleod MA [facility] 10:19:36 Medications Name Sig Start Date Stop Date Status Note LastModified by Organization Details LastModified Time shingrix 50 mcg/0.5ml susr 09/27 completed Not Available Not Available Not Available plenvu 140 gm solr 09/27 completed Not Available Not Available Not Available lisinopril 10 mg tabs 10/19 completed Not Available Not Available Not Available proair hfa 108 (90 base) mcg/act aers 09/27 completed Not Available Not Available Not Available ofloxacin 0.3 % eye drops 02/14 completed Not Available Not Available Not Available prednisone 20 mg tablet TAKE 1 TABLET BY MOUTH DAILY FOR 10 DAYS 06/18 completed Not Available Not Available Not Available amlodipine 5 mg tablet TK 1 T PO QD 01/29 completed Not Available Not Available Not Available prednisolo ne acetate 1 % eye drops,susp ension PLACE 1 DROP INTO LEFT EYE DAILY FOR 1 WEEK THEN TAPER DIRECTED 10/20 completed Not Available Not Available Not Available methotrexa te sodium 2.5 mg tablet TAKE 8 TABLETS BY MOUTH ONCE A WEEK active Not Available Not Available No t Available Proctozone -HC 2.5 % topical cream perineal applicator MOHAMUD A THIN LAYER AA TOPICALLY 2 TO 4 TIMES A DAY 03/25 completed Not Available Not Available Not Available lisinopril 10 mg tablet TK 1/2 T PO D 12/28 completed Not Available Not Available Not Available codeine 10 mg-guaifen esin 100 mg/5 mL Syrup Take 10 mL every 4 hours by oral route. 2010 active Not Available Not Available Not Avai lable folic acid 1 mg tablet once a day by mouth active Not Available Not Available No t Available codeine 10 mg-guaifen esin 100 mg/5 mL oral liquid Take 10 mL every 4 hours by oral route as needed. 2010 active Not Available Not Available Not Avai lable lisinopril 5 mg tablet Take 1 tablet every day by oral route. 03/03 completed Not Available Not Available Not Available lotepredno l etabonate 0.5 % eye drops,susp ension 07/17 completed Not Available Not Available Not Available hydroxychl oroquine 200 mg tablet TAKE 1 TABLET BY MOUTH TWICE DAILY 2024 active Not Available Not Available Not Avai lable atropine 1 % eye drops INSTILL 1 DROP IN LEFT EYE TWICE DAILY 12/04 completed Not Available Not Available Not Available fluticason e propionate 50 mcg/actuat ion nasal spray,susp ension 1 spray as needed by nasal route. 2019 active Not Available Not Available Not Avai lable tamoxifen 20 mg tablet active take 1 po daily Not Available Not Available Not Available naproxen 500 mg tablet TAKE 1 TABLET BY MOUTH TWICE DAILY 06/18 completed Not Available Not Available Not Available amoxicilli n 875 mg-potassi um clavulanat e 125 mg tablet TAKE 1 TABLET BY MOUTH TWICE DAILY AFTER MEALS FOR 7 DAYS 12/18 completed Not Available Not Available Not Available multivitam in 03/03 completed take 1 po daily Not Available Not Available Not Available ProAir HFA 90 mcg/actuat ion aerosol inhaler INL 2 PUFFS PO Q 4 H PRN 08/16 completed Not Available Not Available Not Available hydrochlor othiazide 12.5 mg tablet TAKE 1 TABLET BY MOUTH DAILY active Not Available Not Available No t Available Pulmicort Flexhaler 180 mcg/actuat ion breath activated 1 inhalatio n as needed by inhalatio n route. 2019 active Not Available Not Available Not Avai lable cholecalci ferol (vitamin D3) 1,250 mcg (50,000 unit) capsule TAKE 1 CAPSULE BY MOUTH ONE DAY A WEEK 08/16 completed Not Available Not Available Not Available ProChamber USE UTD active Not Available Not A vailable Not Available Shingrix (PF) 50 mcg/0.5 mL intramuscu lar suspension , kit ADM 0.5ML IM UTD 12/05 completed Not Available Not Available Not Available Plenvu 140 gram-9 gram-5.2 gram powder packs TK PO DIRECTED FOR 1 DAY 09/27 completed Not Available Not Available Not Available COVID-19 test specimen collection TEST DIRECTED TODAY 12/18 completed Not Available Not Available Not Available Vitals Date Recorded Body height Body mass index (BMI) Body weight Body temperature Oxygen saturation Oxygen saturation in Arterial blood by Pulse oximetry Heart rate Systolic blood pressure Diastolic blood pressure Provider Name and Address Organization Details Last Updated DateTime 5 165.74 cm 37 kg/m2 278269. 69 g 97 [degF] 95 % 95 % 67 /min 110 mm[Hg] 64 mm[Hg] Angelita Mcleod MA [facility] 5 09:54:57 Social History Question Answer Notes LastModified by Organizat ion Details LastModified Time Tobacco Smoking Status Never Smoker Not Available [facility] 08/06/2011 04:53:49 Do You Have An Advance Directive? Yes Information not available 06/27/2012 What Is Your Level Of Caffeine Consumption? Occasional No Coffee- No Soda Information not available 05/15/2015 What Type Of Diet Are You Following? REGULAR Increasing To Veg.less Refined Sugar Information not available 06/27/2012 Which Illicit Or Recreational Drugs Have You Used? None [email or web address] Information not available 08/06/2011 Education Post Graduate [email or web address] 09 117 Information not available 08/06/2011 Live Alone Or With Others? With Others Information not available 09/16/2018 Patient Has Health Care Proxy Signed And In Chart Yes Gustavo Gomez [phone] [email or web address] Information not available 08/06/2011 Marital Status DBA_PATCH_ 11 117 Information not available 08/06/2011 Mosquito Repellent Used Routinely No [email or web address] Information not available 08/06/2011 How Many Children Do You Have? 2 DBA_[email or web address] Information not available 08/06/2011 Are There Any Occupational Health Risks Where You Work? None [email or web address] Information not available 08/06/2011 What Is Your Relationship Status? Information not available 12/18/2021 Seat Belts Used Routinely Yes [email or web address] Information not available 08/06/2011 Are You Sexually Active? Yes [email or web address] Information not available 08/06/2011 Smoke Alarm In Home Yes [email or web address] Information not available 08/06/2011 What Types Of Sporting Activities Do You Participate In? None Information not available 06/27/2012 General Stress Level Medium Better During Summer skillip Information not available 02/20/2010 Sex: Female Functional Status Question Answer Note LastModified by Organizat ion Details LastModified Time Do you use any illicit or recreational drugs? No Information not available 02/14/2025 Do you or have you ever used any other forms of tobacco or nicotine? No Information not available 01/20/2023 What is your level of alcohol consumption? Occasional 4 drinks weekly Information not available 10/25/2020 Do you or have you ever used smokeless tobacco? Never used smokeless tobacco Information not available 07/18/2019 Are you currently employed? 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 Never used electronic cigarettes Information not available 07/18/2019 What is your exercise level? Moderate Information not available 08/16/2024 Mental Status None recorded. Family History Relationship Description Onset Age of this Age Resolved Age Notes LastModified by Organization Details LastModified Time Maternal Grandfather Myocardial infarction 40 40 [email or web address] [id number] Not available 05/01/2013 03:00:34 Maternal Aunt Malignant tumor of breast previo usly record ed as Cancer -Breas t [email or web address] [id number] Not available 05/01/2013 03:00:34 Mother Autoimmune hemolytic anemia 40 [email or web address] [id number] Not available 05/01/2013 03:00:34 Sister Myocardial infarction 59 smokes and drinks [email or web address] Not available 09/16/2018 09:33:29 Notes:no DM; no HTN; no Chol ; no colon cancer Medical History Condition Response Anxiety Y Migraine Headaches Y Breast Cancer Y Colon Polyps Y Gynecological History Statement/Question Response Date of LMP 05/11/2015 Menses Monthly N History of Abnormal Pap N Current Control Method Tubal Ligat ion Age at Menarche 14 Approximate Obstetrics History GPAL:G 0 P 0 0 0 0 Immunizations Vaccine Type Date Status Note Provider Nam e and Address Organization Details Recorded Time influenza, unspecified formulation 0 completed Not Available [facility] 08/21/2022 12:22:17 Tdap 7 completed Not Available [facility] 08/21/2022 12:22:17 Influenza, split virus, trivalent, preservative 2 completed Not Available [facility] 10/07/2019 02:35:41 Influenza, split virus, trivalent, PF 3 completed Not Available [facility] 10/07/2019 02:18:59 Influenza, split virus, quadrivalent, PF 5 completed Not Available [facility] 10/07/2019 02:20:12 Influenza, split virus, quadrivalent, PF 6 completed Not Available [facility] 10/07/2019 02:21:08 Td (adult), 2 Lf tetanus toxoid, preservative free, adsorbed 7 completed Not Available [facility] 10/07/2019 02:21:36 Influenza, split virus, quadrivalent, PF 8 completed Not Available [facility] 10/07/2019 02:38:08 Influenza, split virus, quadrivalent, PF 9 completed Not Available [facility] 10/07/2019 02:24:09 influenza, unspecified formulation 7 completed Not Available [facility] 08/21/2022 12:22:17 zoster recombinant 9 completed Not Available [facility] 10/07/2019 02:24:33 zoster recombinant 9 completed Not Available [facility] 08/21/2022 12:22:17 Influenza, split virus, quadrivalent, PF 1 completed JOSE L Delgadillo, [facility] 07/11/2021 10:11:22 Influenza, split virus, quadrivalent, preservative 0 completed Not Available [facility] 08/21/2022 12:22:16 COVID-19 vaccine, vector-nr, rS-Ad26, PF, 0.5 mL 1 completed Not Available [facility] 08/21/2022 12:22:17 Influenza, split virus, quadrivalent, PF 3 completed Angelita Amador MD [address] [place] [address], [address], [facility] 06/18/2023 11:23:31 COVID-19, mRNA, LNP-S, PF, 30 mcg/0.3 mL dose 1 completed Not Available [facility] 08/21/2022 12:22:16 COVID-19, mRNA, LNP-S, PF, 30 mcg/0.3 mL dose 2 completed Not Available [facility] 08/21/2022 12:22:17 Influenza, split virus, quadrivalent, preservative 2 completed Not Available [facility] 08/21/2022 12:22:17 COVID-19, mRNA, LNP-S, PF, 30 mcg/0.3 mL dose 2 completed Not Available [facility] 08/21/2022 12:22:17 SARS-COV-2 (COVID-19) vaccine, UNSPECIFIED 3 [facility] 12:16:18 SARS-COV-2 (COVID-19) vaccine, UNSPECIFIED 3 completed [facility] 12:17:16 zoster recombinant 9 completed [facility]dy [facility] 02/04/2024 16:04:32 Past Encounters Encounter ID Performer Location Encounter Start Date Encounter Closed Date Diagnosis/Indication Diagnosis SNOMED-CT Code Diagnosis ICD10 Code Diagnosis Note [id number] Angelita Amador MD , [facility], [address] [place] [address] 02/14/2025 09:18:18 02/15/2025 12:25:51 Benign essential hypertension 2603509 I10 good control goal < 130/80 stable not sx no changes today Sarcoidosis 34113300 D86 .[address] Avila and Dr Puentes following on methotrexa te and hydroxychl oroquinest able Morbid obesity 493186186 E66.01 coded for BMI > 35 with HTNstaying active this winter and happy w maintained strengthli pid panel in Aug Vitamin D deficiency 347 [address] Avila, sarcoid mgmt Pain in right foot 13745 95983 81938 M79.671 pain top of foot w bone growth and growth in big toe joint, looks like OAwearing BIrkenstoc ks w relief? other tx options ongoing as footware is uncomforta blepodiatr y referral Bilateral age-related nuclear cataracts 1969605317 [address] Cunha Pain in face 25510575 J3 4.89 behind left cheekquick stabbing pain, doesn't last long, happens in wavesflona se and neti don't seem to helpsweet foods can triggeruse s neti and clears sinuscould try azelastinf /u w ENT Health Concerns Section Related Observation LastModified by Organization Detai ls LastModified Time None Recorded Concern Status LastModified by Organization Details LastModified Time None Recorded Payers Encounter Date Sequence Insurance Name Policy Number Policy Simeon Covered Member ID Simeon Member ID Guarantor Name 02/14/2025 1 [facility] [id number] Ted Gomez [id number] Bela GillespieJazmine batista Notes Date Note Type Note Provider Name and Address Organization Details Recorded Time 02/14/2025 text/html here today klever yordan f/uthinks she is overall okayhas a lot of aches and pains that she attributes to agingher right knee is doing wellhaving various kinds of foot painand what helps the most is wearing Birkenstock sandalshas a lump on top of foot and had xray and there is a calcification that hurts with shoeshas bones sticking out beneath her big toesshe is wearing relaxed foot wearcan still walk and exercise okayright foot can be really painfulwhen she medicates w naproxen it helps her for 24 hoursother pain is on and off headache on left side, some of it is with her eye- had inflammation and scar tissue with surgery, part of sarcoidosis, she goes back to see the surgical tilting saw operator and follows w Dr Cunha, looking at her cataractsgets occ sinus NARANJO on the left side, doesn't feel congested at those timessounds congested all the timeuses occ fluticasone nasal spraynormally uses saline rinse, it doesn't usually help, but it cleans out lots of stufftalked to the dentist about this who didn't have much to sayfeels pain when she eats something sweetpain is more throbbing, and goes away, almost like a spasm that relaxesright behind the cheek bonehas gotten abx for flares, but it resolves on its ownworking on more frequent walksstayed w this after [place] home from [place] strengthh[place] and she was the slowest but she did itbreathing is good and stable Angelita Amador MD [address] [place] [address], [place], [address], [facility] 02/14/2025 10:18:55 OBGyn Episode No OBEpisode recorded.
[2025-02-16 14:31] LABS: MANUAL DIFF FLAG NO
[2025-02-16 15:14] LABS: Basophils Absolute Auto 0.1 X10*3/uL (0.0-0.2); Basophils Percent Auto 1.3 % (0-2); Eosinophils Absolute Auto 0.1 X10*3/uL (0.0-0.4); Eosinophils Percent Auto 2.1 % (0-4); Hemoglobin 11.6 g/dl (12.0-16.0); Imm Gran Abs Auto 0.01 X10*3/uL (0.00-0.03); Imm Gran Pct Auto 0.3 % (0.0-0.4); Lymphocytes Absolute Auto 0.5 X10*3/uL (1.2-4.9); Lymphocytes Percent Auto 12.8 % (20-40); Mean Corpuscular HGB Conc 33.1 g/dl (31.0-35.0); Mean Corpuscular Hemoglobin 30.3 pg (27.0-33.0); Mean Corpuscular Volume 91.4 fL (80.0-98.0); Mean Platelet Volume 9.4 fL (9.4-12.3); Monocytes Absolute Auto 0.3 X10*3/uL (0.1-1.2); Monocytes Percent Auto 8.2 % (2-11); Neutrophils Absolute Auto 2.9 x10*3/uL (2.0-8.3); Neutrophils Percent Auto 75.3 % (45-73); Platelet Count 181 X10*3/uL (160-400); Red Blood Count 3.83 X10*6/uL (4.20-5.50); Red Cell Distribution Width 13.9 % (11.0-16.0); White Blood Count 3.9 X10*3/uL (4.8-10.8)
[2025-02-16 16:10] LABS: Alanine Aminotransferase 44 U/L (0-31); Albumin Level 4.2 g/dL (3.5-5.0); Anion Gap 9 (12-20); Aspartate Amino Transferase 37 U/L (5-31); Bilirubin Total 0.3 mg/dL (0.0-1.0); Blood Urea Nitrogen 29 mg/dL (9-16); C Reactive Protein < 0.04 mg/dL (< or = 0.50); Calcium 9.7 mg/dL (8.4-10.2); Carbon Dioxide 29 mmol/L (22-29); Chloride 106 mmol/L (96-108); Estimated Glomerular Filt Rate > 60; Glucose Random 113 mg/dL (60-115); Potassium 3.9 mmol/L (3.3-5.1); Sodium 140 mmol/L (135-145); Total Protein 7.3 g/dL (6.5-8.0)
[2025-02-16 17:08] LABS: Alkaline Phosphatase 88 U/L (39-117)
[2025-02-16 23:00] LABS: Erythrocyte Sedimentation Rate 16 MM/HR (0-20)
[2025-02-19 01:14] LABS: Angiotensin Converting Enzyme 46 U/L (9-67)
== END 2025-02-16 14:21 | disposition home or self-care (01) ==
LOC: HO.LAB 14:20
PROVIDERS: PCP Family Medicine; Visit Provider Student in an Organized Health Care Education/Training Program
DX: D86.9 Sarcoidosis, unspecified (principal)
CPT/HCPCS: 36415; 80053; 82164; 85025; 85652; 86140

== ENCOUNTER 2025-02-23 07:31 | Outpatient (AMB) | payer BC, SELFPAY ==
--- OUTSIDE RECORDS SUMMARY | 2025-02-23 07:33 | XMS_ITS | Continuity of Care Document ---
Author Organization [facility], Podiatry,[facility] Address [address] [place] [address] Care Team Providers Care Financial Compliance Officer Name Role Phone ANGELITA AMADOR Primary Care Provider NOE AVILA Dry Roller HENRI RECINOS Metaphysics Teacher FRANCI VILLARREAL Chain Saw Mechanic CASTRO CAMPOS General Surgeon Assessment Encounter Date Assessment Date Assessment LastModified by Organization Details LastModified Time 02/19/2025 02/19/2025 Exostosis dorsal right foot, peroneal tendinitis right foot, pronation jerskine Not available 02/19/2025 12:36:20 Plan of Treatment Reminders Order Date Submit Date Provider Last Modified By Organization Details Last Modified Time Details Appointments LAB Follow-Up 2024 07:30A M [facility] Lab Not available Not available Not available Wellness Visit 30 2024 09:15A M Angelita Amador MD Not available Not available Not available Lab None recorded. Referral None recorded. Procedures None recorded. Surgeries None recorded. Imaging None recorded. Medication Orders None recorded. Patient TargetsNo targets recorded. Patient Instructions Encounter Date Encounter Id Patient Instructions Last Modified By Organization Details Last Modified Time 02/19/2025 [id number] Patient will accommodate shoes and return if symptoms persist. jerskine Not available 02/19/2025 12:37:14 Reason for Referral None Reported. Problems Name Problem SNOMED Code Status Onset Date Resolution Date Notes Provider Name and Address Organization Details Recorded Time Increase d blood pressure 12495089 Completed 08/31/2017 Sergei Jay MD [address] [place] [address], [address] , [facility] 7 11:45:39 Benign essentia l hyperten alicja 9444421 Active 2015 Angelita Amador MD [address] [place] [address], , [facility] 2 14:23:10 Adenomat ous polyp of colon 909835285 Active 2018 GI requests q 3 years colonosc opy Angelita Amador MD [address] [place] [address], , [facility] 2 14:24:07 Obesity 803857795 Completed 201906/30/2022 ERROL Moy, [facility] 2 08:53:08 Vitamin D deficien cy 74800788 Active 2019 Angelita Amador MD [address] [place] [address], , [facility] 2 14:23:58 Sarcoido sis 61565608 Active 2019 with lupus pernio Angelita Amador MD [address] [place] [address], , [facility] 2 14:23:53 Iron deficien cy anemia 56182687 Completed 202008/16/2024 Angelita Amador MD [address] [place] [address], , [facility] 4 10:53:45 History of malignan t neoplasm of breast 333846424 Completed 202112/18/2021 Angelita Amador MD [address] [place] [address], , [facility] 2 14:23:21 Morbid obesity 027350697 Active 2021 BMI > or = 35 plus diagnosi s of HTN. Angelita Amador MD [address] [place] [address], , [facility] 3 14:23:22 Cobalami n deficien cy 334373642 Active 2021 Angelita Amador MD [address] [place] [address], [address] , [facility] 2 09:20:19 Posterio r rhinorrh ea 00912403 Active 2021 Angelita Amador MD [address] [place] [address], [address] , [facility] 2 09:21:21 Atrophic gastriti s 06877375 Active 2021 Angelita Amador MD [address] [place] [address], [address] , [facility] 2 09:30:18 Posterio r pressure in eye 312389765 Active 2021 Angelita Amador MD [address] [place] [address], [address] , [facility] 2 09:30:19 Intersti tial lung disease 416628587 Active 2022 Angelita Amador MD [address] [place] [address], [address] , [facility] 3 14:30:34 Bilatera l age-rela benji nuclear cataract s 51813136117 9100 Active 2024 Angelita Amador MD [address] [place] [address], [address] , [facility] 5 10:15:58 Abnormal findings on diagnost ic imaging of breast 717334156 Completed 200002/20/2010 Not Available [facility] 3 03:10:18 Nausea 775628559 Completed 200402/20/2010 Not Available [facility] 3 03:10:18 Liver function tests outside referenc e range 462610703 Completed 200402/20/2010 Not Available [facility] 3 03:10:18 Cough 16978487 Completed 08/09/2013 Not Available [facility] 3 02:01:07 Subcutan eous nodule 71753649 Completed 08/09/2013 Not Available [facility] 3 02:03:38 Diarrhea 69834290 Completed 200402/20/2010 Not Available [facility] 3 03:10:18 Primary malignan t neoplasm of female breast 23710691 Completed 200511/26/2021 Removal Reason: resolved Angelita Amador MD [address] [place] [address], [address] , [facility] 2 15:26:08 Pain of hip region 67506071 Completed 08/09/2013 Not Available [facility] 3 02:01:32 Plantar fasciiti s 210487825 Completed 200702/20/2010 Not Available [facility] 3 03:10:18 Pure hypercho lesterol emia 283367104 Completed 200302/20/2010 Not Available [facility] 3 03:10:18 Eustachi an tube salpingi tis 900440583 Completed 02/20/2010 Not Available [facility] 3 03:10:18 Breast lump 19269456 Completed 200502/20/2010 Not Available [facility] 3 03:10:18 Pneumoni a 119311400 Completed 200302/20/2010 Not Available [facility] 3 03:10:18 Common cold 41781175 Completed 200302/20/2010 Not Available [facility] 3 03:10:18 Mammogra phy abnormal 887604783 Completed 200502/20/2010 Not Available [facility] 3 03:10:18 Chest pain 99760320 Completed 200002/20/2010 Not Available [facility] 3 03:10:18 Anal and rectal polyp 018998925 Completed 09/27/2019 Angelita Amador MD [address] [place] [address], [address] , [facility] 0 09:41:36 Problem Notes None recorded. Procedures Surgical History Date Name Laterality Status Provider Name and Address Organization Details Recorded Time 03/10/20 22 98284: Therapeutic Exercise completed Liliya Foy, PT [address] [place], [address], [facility] 03/10/2022 17:01:03 02/27/20 22 Physical Activity Counselling completed Liliya Foy, PT [address] [place], [address], [facility] 02/26/2022 09:25:32 02/27/20 22 81714: PT Eval Low Complexity completed Liliya Foy, PT [address] [place], [address], [facility] 02/26/2022 09:25:39 02/27/20 22 Treatment and Advice completed Liliya Foy, PT [address] [place], [address], [facility] 02/26/2022 09:25:31 10/01/19 22 Budhraja - Colonoscopy completed Franci Villarreal MD [address] [place], [address], [facility] 10/01/2021 10:25:08 10/25/19 21 prevention-cardio vascular risk reduction counseling completed Sulma Linton [facility] 10/25/2020 08:56:30 10/25/19 21 prevention-annual alcohol misuse screening completed Sulma Linton Migel [facility] 10/25/2020 08:56:30 01/19/20 20 34384: Therapeutic Exercise completed Jameson Sahni, PT [address] [place], [address], [facility] 01/20/2020 09:19:36 01/19/20 20 Treatment and Advice completed Jameson Sahni, PT [address] [place], [address], [facility] 01/19/2020 17:43:13 11/09/19 20 91675: Therapeutic Exercise completed Jameson Sahni, PT [address] [place], [address], [facility] 11/09/2019 08:13:00 11/09/19 Treatment and Advice completed Jameson Sahni, PT [address] [place], [address], [facility] 11/09/2019 07:36:50 10/19/19 prevention-cardio vascular risk reduction counseling completed Sulma Linton Migel [facility] 10/19/2019 16:44:02 10/19/19 prevention-annual alcohol misuse screening completed Sulma Linton [facility] 10/19/2019 16:44:02 10/19/19 20 99634: Therapeutic Exercise completed Jameson Sahni, PT [address] [place], [address], [facility] 10/19/2019 07:04:32 10/19/19 Treatment and Advice completed Jameson Sahni, PT [address] [place], [address], [facility] 10/19/2019 07:39:19 09/26/19 20 42172: Therapeutic Exercise completed Jameson Sahni, PT [address] [place], [address], [facility] 09/26/2019 07:33:57 09/26/19 Treatment and Advice completed Jameson Sahni, PT [address] [place], [address], [facility] 09/26/2019 07:08:30 09/05/20 19 75406: Therapeutic Exercise completed Jameson Sahni, PT [address] [place], [address], [facility] 09/06/2019 06:09:05 09/05/20 19 Treatment and Advice completed Jameson Sahni, PT [address] [place], [address], [facility] 09/05/2019 07:47:16 08/01/20 19 54662: Therapeutic Exercise completed Jameson Sahni, PT [address] [place], [address], [facility] 08/01/2019 07:41:02 08/01/20 19 Treatment and Advice completed Jameson Sahni, PT [address] [place], [address], [facility] 08/01/2019 07:32:31 07/18/20 19 Nebulizer Tx completed Farzaneh Bishopens [facility] 07/18/2019 10:23:53 07/18/20 19 75978: Therapeutic Exercise completed Jameson Sahni, PT [address] [place], [address], [facility] 07/18/2019 07:31:03 07/18/20 19 Treatment and Advice completed Jameson Sahni, PT [address] [place], [address], [facility] 07/18/2019 07:30:00 07/04/20 92713: Therapeutic Exercise completed Jameson Sahni, PT [address] [place], [address], [facility] 07/04/2019 07:29:52 07/04/20 Treatment and Advice completed Jameson Sahni, PT [address] [place], [address], [facility] 07/04/2019 07:27:14 06/27/20 66739: Therapeutic Exercise completed Jameson Sahni, PT [address] [place], [address], [facility] 06/27/2019 07:38:03 06/27/20 19 Treatment and Advice completed Jameson Sahni, PT [address] [place], [address], [facility] 06/27/2019 07:40:12 05/30/20 19 Physical Activity Counselling completed Jameson Sahni, PT [address] [place], [address], [facility] 05/30/2019 07:41:18 05/30/20 19 11679: PT Eval Low Complexity completed Jameson Sahni, PT [address] [place], [address], [facility] 05/30/2019 07:41:18 05/30/20 19 Treatment and Advice completed Jameson Sahni, PT [address] [place], [address], [facility] 05/30/2019 08:05:46 05/23/20 19 Suture/staple Removal completed Bing Lovell MA [facility] 05/23/2019 10:23:26 05/23/20 19 Shingrix Admin completed Gabrielle Serrano LPN [facility] 05/23/2019 11:35:45 03/17/20 18 80645: Therapeutic Exercise completed Alphonse Faust, PT, DPT, CSCS [address] [place] [address], [address], [facility] 03/17/2018 15:29:07 03/17/20 18 Neuromuscular re-education completed Alphonse Faust, PT, DPT, [address], [address], [facility] 03/17/2018 15:29:12 03/09/20 18 Physical Activity Counselling completed Alphonse Faust, PT, DPT, [address], [address], [facility] 03/09/2018 15:03:58 03/09/20 18 50306: PT Eval, Moderate Complexity completed Alphonse Faust, PT, DPT, [address], [address], [facility] 03/09/2018 15:04:09 03/26/20 10 Treatment and Advice completed Jameson Sahni, PT [address] [place], [address], [facility] 03/26/2010 15:58:14 03/17/20 10 Treatment and Advice completed Jameson Sahni, PT [address] [place], [address], [facility] 03/17/2010 09:09:35 03/10/20 10 Treatment and Advice completed Jameson Sahni, PT [address] [place], [address], [facility] 03/10/2010 08:47:36 Imaging Results None recorded. Procedure Notes None recorded. Medical Equipment None Reported. Allergies Allergen ID Allergen Name Allergen Category Reaction Reaction Severity Criticality Documentation Date Start Date Code Code System Note Provider Name and Address Organization Details Recorded Time 347206 lisinopri l medicatio n cough Not available Not available 08/16/2024 22390 RxNorm Angelita Mcleod [place] [facility] 4 10:19:36 Medications Name Sig Start Date Stop [...] Not Available Vitals Date Recorded Body height Provider Name an d Address Organization Details Last Updated DateTime 02/19/2025 165.74 cm Qing Lugo [facility] 02/19/2025 11:24:06 Social History Question Answer Notes LastModified by [...] Signed And In Chart Yes Gustavo Gomez [phone] [id number] Information not available 08/06/2011 Marital Status Information not available 08/06/2011 Mosquito Repellent Used [...] 12/18/2021 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 Never used electronic cigarettes Information not available 07/18/2019 What is your exercise level? Moderate Information not available 08/16/2024 Mental Status None recorded. Family History Relationship Description Onset Age of this Age Resolved Age Notes LastModified by Organization Details LastModified Time Maternal Grandfather Myocardial infarction 40 40 [id number] Not available 05/01/2013 03:00:34 Maternal Aunt Malignant tumor of breast previo usly record ed as Cancer -Breas t [id number] Not available 05/01/2013 03:00:34 Mother Autoimmune hemolytic anemia 40 [id number] Not available 05/01/2013 03:00:34 Sister Myocardial infarction [...] influenza, unspecified formulation 0 completed Not Available [facility] 08/21/2022 12:22:17 Tdap 7 completed Not Available [facility] 08/21/2022 12:22:17 Influenza, split virus, trivalent, preservative 2 completed Not Available [facility] 10/07/2019 02:35:41 Influenza, split virus, trivalent, PF 3 completed Not Available [facility] 10/07/2019 02:18:59 Influenza, split virus, quadrivalent, PF 5 completed Not Available [facility] 10/07/2019 02:20:12 Influenza, split virus, quadrivalent, PF 6 completed Not Available [facility] 10/07/2019 02:21:08 Td (adult), 2 Lf tetanus toxoid, preservative free, adsorbed 7 completed Not Available [facility] 10/07/2019 02:21:36 Influenza, split virus, quadrivalent, PF 8 completed Not Available [facility] 10/07/2019 02:38:08 Influenza, split virus, quadrivalent, PF 9 completed Not Available [facility] 10/07/2019 02:24:09 influenza, unspecified formulation 7 completed Not Available [facility] 08/21/2022 12:22:17 zoster recombinant 9 completed Not Available [facility] 10/07/2019 02:24:33 zoster recombinant 9 completed Not Available [facility] 08/21/2022 12:22:17 Influenza, split virus, quadrivalent, PF 1 completed JOSE L Delgadillo, [facility] 07/11/2021 10:11:22 Influenza, split virus, quadrivalent, preservative 0 completed Not Available [facility] 08/21/2022 12:22:16 COVID-19 vaccine, vector-nr, rS-Ad26, PF, 0.5 mL 1 completed Not Available [facility] 08/21/2022 12:22:17 Influenza, split virus, quadrivalent, PF 3 completed Angelita Amador MD [address] [place] [address], [address], [facility] 06/18/2023 11:23:31 COVID-19, mRNA, LNP-S, PF, 30 mcg/0.3 mL dose 1 completed Not Available [facility] 08/21/2022 12:22:16 COVID-19, mRNA, LNP-S, PF, 30 mcg/0.3 mL dose 2 completed Not Available [facility] 08/21/2022 12:22:17 Influenza, split virus, quadrivalent, preservative 2 completed Not Available [facility] 08/21/2022 12:22:17 COVID-19, mRNA, LNP-S, PF, 30 mcg/0.3 mL dose 2 completed Not Available [facility] 08/21/2022 12:22:17 SARS-COV-2 (COVID-19) vaccine, UNSPECIFIED 3 [facility] 12:16:18 SARS-COV-2 (COVID-19) vaccine, UNSPECIFIED 3 [facility]09[facility]23 12:17:16 zoster recombinant 9 [facility]/04/2024 16:04:32 Past Encounters Encounter ID Performer Location Encounter Start Date Encounter Closed Date Diagnosis/Indication Diagnosis SNOMED-CT Code Diagnosis ICD10 Code Diagnosis Note [id number] Angelita Amador MD , [facility], OFFICE [address] [place] [address] 02/14/2025 09:18:18 02/15/2025 12:25:51 Benign essential hypertension 7194125 I10 good control goal < 130/80 stable not sx no changes today Sarcoidosis 38078763 D86 .[address] Avila and Dr Puentes following on methotrexa te and hydroxychl oroquinest able Morbid obesity 284792032 E66.01 coded for BMI > 35 with HTNstaying active this winter and happy w maintained strengthli pid panel in Dec Vitamin D deficiency 347 [address] Avila, sarcoid mgmt Pain in right foot 14267 31189 01364 M79.671 pain top of foot w bone growth and growth in big toe joint, looks like OAwearing BIrkenstoc ks w relief? other tx options ongoing as footware is uncomforta blepodiatr y referral Bilateral age-related nuclear cataracts 9093767087 [address] Cunha Pain in face 32890430 J3 4.89 behind left cheekquick stabbing pain, doesn't last long, happens in wavesflona se and neti don't seem to helpsweet foods can triggeruse s neti and clears sinuscould try azelastinf /u w ENT [id number] Angelita Amador MD Podiatry, [address] [address] 02/19/2025 11:17:44 02/19/2025 12:37:48 Exostosis 518055452 M89.8X9 Peroneal t endinitis of right lower limb 6113148861 27215 M76.71 Pronation of foot 574472 03 M21.6X1 M21.6X2 Health Concerns Section Related Observation LastModified by Organization Detai ls LastModified Time None Recorded Concern Status LastModified by Organization Details LastModified Time None Recorded Payers Encounter Date Sequence Insurance Name Policy Number Policy Simeon Covered Member ID Simeon Member ID Guarantor Name 02/19/2025 1 [facility] [place] [id number] Ted Gomez [id number] Bela batista Notes Date Note Type Note Provider Name and Address Organization Details Recorded Time 02/19/2025 text/html Patient presents to the office complaining of multiple areas of intermittent discomfort left foot. Patient states lump has formed along the top of her left foot which becomes irritated especially wearing a closed shoe. Patient also complains of discomfort which occurs along the outside of her right foot. Jameson Sanchez DPM [address] [place] [address], [id number], [facility] 02/19/2025 12:37:46 OBGyn Episode No OBEpisode recorded.
--- NOTE | 2025-02-23 07:40 | MHC.OFFVIS ---
Vital Signs 02/23/25 07:46 Height 5 ft 5 in Weight 225 lb 15.581 oz BMI 37.6 BP 130/80 Blood Pressure Location Rt brachial Position Sitting Pulse 66 Pulse Source Pulse Oximeter Pulse Oximetry (%) 92 Oxygen Delivery Method Room Air Intake Visit Reasons: Sarcoid Intake Note: Patient last seen by Doctor Brittany Hamilton on 08/23/24. Presents today for Sarcoid follow up and test results. Allergies bee pollen Allergy (Unknown, Verified 08/23/24 07:39) unknown lisinopril Allergy (Unknown, Verified 08/23/24 07:39) unknown Medication List - Last Reconciled 02/23/25 by Maribell Velasco MD albuterol sulfate 90 mcg/actuation (ProAir HFA) 2 puffs inhalation Q6H PRN budesonide 180 mcg/actuation (Pulmicort Flexhaler) 1 inh inhalation BID PRN fluticasone propionate 50 mcg/actuation (Allergy Relief (fluticasone)) 1 spray intranasal DAILY folic acid 1 mg PO DAILY hydrochlorothiazide 12.5 mg PO DAILY hydroxychloroquine 200 mg PO BID methotrexate sodium 17.5 mg PO QWEEK naproxen 500 mg PO .QD PRN HPI Comments Details: Patient is a 64 year old female with hypertension and sarcoidosis here today for follow up Interval History: Patient last seen 08/23/[address] Hamilton. At that time she was following up for her sarcoidosis on hydroxychloroquine 200 mg twice a day and methotrexate 20 mg weekly. She was doing well overall without any joint pains or aches and reported that her erythema nodosum had not been a problem. No shortness of breath Today she continues to feel well. Her methotrexate was decreased from 8 pills weekly to 7 pills weekly by another physician. Unsure of why. ?Transaminitis Despite the decrease patient continues to do well. No further erythema nodosum nodules. Denies shortness of breath Rheumatologic History: Initial history: This is a 62-year-old female with a past medical history of sarcoidosis who presents for evaluation of Sarcoidosis. The condition started in 2019 with some shortness of breath, she was found to have multiple nasal lesions. Nasal biopsy showed granulomatous disease. She was also found to have lupus pernio. She was evaluated by supervisor properties Dr. Newton and started on hydroxychloroquine as well as steroid nasal sprays with significant improvement. Her loop her spirit new lesions have resolved. Chest CT showed mediastinal adenopathy and some interstitial changes. Patient denies any significant shortness of breath. Stated she walked an hour and a half a few weeks ago. In November of 2021 she started having left eye blurry vision. She was initially started on steroid eyedrops without significant improvement, she was then evaluated by Dr. Jose Yeh & was started are on another course of steroid eyedrops and she was recently started on methotrexate in August of 2022. She is currently on methotrexate 6 tabs weekly and hydroxychloroquine has been discontinued. She never took oral steroids. Today patient feels well overall except for left eye blurry vision. She states that her left eye symptoms have stabilized and might be starting to improve. Current Rheumatology Medication(s): Hydroxychloroquine 200 mg twice a day Methotrexate 17.5 mg weekly Folic acid 1 mg daily [facility] Medical History Breast cancer Adenomatous colon polyp Benign essential hypertension Sarcoidosis Iron (Fe) deficiency anemia Atrophic gastritis Rhinorrhea Morbid obesity Vitamin B12 deficiency Surgical History Hx of tubal ligation S/P mastectomy, bilateral History of appendectomy Family History Mother Autoimmune hemolytic anemia Sister Myocardial infarct Maternal Grandfather Myocardial infarct Social History Household Members: Spouse Housing: House Alcohol intake: current Alcohol intake frequency: a few times a week Alcohol type: beer and wine Patient Tobacco Use Status: Never used Tobacco e-Cigarette/Vaping Use: Never Used service: No Current occupational status: employed 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 [employer] Review of Systems Const Details: Review of Systems Constitutional: Denies fever, chills, weight loss ENT: Denies vision changes, eye pain or eye redness, dental caries, dry mouth GI: Denies nausea, vomiting, diarrhea, abdominal pain, change in BM Pulm: Denies SOB, TSANG, hemoptysis, wheezing Cards: Denies chest pain, palpitations Skin: Denies Raynaud's, rash, nail changes, photosensitivity, RESTAURANT HOSPITALITY MANAGER: Denies headaches, weakness, paresthesias, recurrent falls MSK: as per HPI All other systems reviewed and are unremarkable except noted above Physical Exam Vital Signs: Last Vital Signs Pulse 66 02/23/25 07:46 BP 130/80 02/23/25 07:46 Pulse Ox 92 02/23/25 07:46 Oxygen Delivery Method Room Air 02/23/25 07:46 BMI result Body Mass Index 37.6 Vital signs reviewed Physical Examination CONSTITUITIONAL Patient alert and cooperative. Well appearing and in no apparent painful distress HEENT Conjunctiva and sclera clear. ?No lymphadenopathy. ? CHEST/RESPIRATORY SYSTEM Normal respiratory effort and able to speak in complete sentences. ?Clear to auscultation bilaterally. ?No crackles, rales, rhonchi, wheezes heard. CARDIAC SYSTEM Regular rate and rhythm. ?S1 and S2 heard no murmurs. ?Radial pulses intact bilaterally MSK Hands: ?Able to make a fist. No synovitis noted to the MCPs, PIPs or DIPs. ?No tenderness to palpation of these joints. No deformities noted. ? Wrists: ?Full range of motion at the wrists without pain. ?No tenderness to palpation or synovitis noted to the wrists. Elbows: Full range of motion without pain. No tenderness, weakness, swelling, increased warmth or erythema. Shoulders: Full range of active range of motion without pain. No tenderness, weakness, swelling, increased warmth or erythema. Hips: Full range of motion without pain. Hip bursa: No tenderness to palpation Knees: ?Full range of motion. ?No tenderness, swelling, increased warmth or erythema.?No effusion. Bilateral crepitations palpated Ankles: Full range of motion. ?No tenderness, swelling, increased warmth or erythema.? Feet: ?Negative squeeze test. ?No tenderness to palpation or swelling of the MTPs. Tender points:?No tenderness to palpation of the bilateral trapezius, supraspinatus, greater trochanters, anterior costochondral junctions, bilateral gluteal areas, bilateral suboccipital muscle insertions SKIN Skin intact without rashes. Hyperpigmented area noted to anterior right hart previous spot of an erythema nodosum nodule. No nodules palpated Results Reviewed Results Reviewed: Laboratory Tests 10/20/22 02/16/25 08:49 14:30 WBC 3.9 L RBC 3.83 L Hgb 11.6 L Hct 35.0 L Plt Count 181 ESR 23 H 16 Sodium 140 Potassium 3.9 Chloride 106 Carbon Dioxide 29 BUN 29 H Creatinine 0.73 AST 41 H 37 H ALT 59 H 44 H C-Reactive Protein < 0.04 < 0.04 Angiotensin Convert Enz 78 H 46 Assessment & Plan Assessment & Plan (1) Sarcoidosis: Comment: Diagnosed in 2019 with nasal lesions, biopsy showing granulomatous inflammation Bilateral hilar adenopathy and interstitial changes on chest CT Iritis 11/2021 lupus pernio Lymphopenia Erythema nodosum HCQ started in 2018, then switched to methotrexate 08/2022 due to uveitis HCQ restarted in 05/2023 due to erythema nodosum effective Code(s): D86.9 - Sarcoidosis, unspecified Category: Medical Plan: #Sarcoidosis Patient is a 64-year-old female with sarcoidosis here today for follow up. Currently in remission with respect to her sarcoidosis. No pulmonary findings. And her erythema nodosum has resolved. Osvadlo level has normalized. Inflammatory markers also normalized. Discussed decreasing methotrexate given that she continues to have some mild transaminitis however patient would like to discuss this with her ophthalmology physician 1st since the iritis was the main reason that she was on the methotrexate. I am okay with that and advised her to have the latin dancer fax over his notes after the visit Plan - Methotrexate 17.5mg weekly PO - Folic acid 1 mg daily - Hydroxychloroquine 200mg bid - Follow up ophthalmology re iritis and methotrexate dosing - RTC 5 months - Labs before visit: CBC, CMP, ESR, CRP, OSVALDO level (2) Bilateral primary osteoarthritis of knee: Code(s): M17.0 - Bilateral primary osteoarthritis of knee Category: Medical Plan: #Bilateral knee OA Patient states that she is responding well to physical therapy exercises. No complaints today (3) Long-term use of hydroxychloroquine: Code(s): Z79.899 - Other intermediate school teacher (current) drug therapy Category: Medical Plan: #Long-term Use of Hydroxychloroquine Discussed with patient the risks and benefits of hydroxychloroquine in managing the rheumatic condition Benefits include: - Reduced pain, reduce mortality, maintenance of remission and reduction of flares Risks include: - GI upset, skin hyperpigmentation, retinal toxicity (especially after more than 5 years of use), myopathy Advised yearly ophthalmology visits (4) Encounter for monitoring of methotrexate therapy: Code(s): Z51.81 - Encounter for therapeutic drug level monitoring; Z79.631 - senior living (current) use of antimetabolite agent Plan: #Long-term Current Use of Methotrexate Discussed with patient the benefits and risks of methotrexate for managing their rheumatic condition Benefits include reduced pain, reduced mortality, maintenance of remission and reduction of flares Risks include oral ulcers, photosensitivity, hepatotoxicity, hematologic toxicity, pneumonitis, flu-like symptoms (especially day after administration), nodulosis, lymphomas ? Limit alcohol and avoid Bactrim ? Monitoring: ?CBC, BMP, LFTs every 3-4 months and hepatitis serologies as needed Plan I spent 32 minutes reviewing the record and labs, taking a history, examining the patient, discussing the treatment plan, ordering diagnostic work up and documenting in the medical record Orders: Orders Complete Blood Count Auto Diff 5 Months D86.9 - Sarcoidosis, unspecified Comprehensive Met. Panel 5 Months D86.9 - Sarcoidosis, unspecified Erythrocyte Sedimentation Rate 5 Months D86.9 - Sarcoidosis, unspecified C Reactive Protein 5 Months D86.9 - Sarcoidosis, unspecified Angiotensin Converting Enzyme 5 Months D86.9 - Sarcoidosis, unspecified Medications: New folic acid 1 mg PO DAILY 90 tabs 1RF D86.9 - Sarcoidosis, unspecified Changed From methotrexate sodium 17.5 mg PO QWEEK D86.9 - Sarcoidosis, unspecified To methotrexate sodium 17.5 mg (7 x 2.5 mg) PO QWEEK 90 days 91 tabs 1RF D86.9 - Sarcoidosis, unspecified Refilled hydroxychloroquine 200 mg PO BID 180 tabs 1RF D86.9 - Sarcoidosis, unspecified Coding Level of Care Code Est Pt Level 4 (39276) Complex EM visit Add On G2211 Diagnoses Sarcoidosis D86.9 Bilateral primary osteoarthritis of knee M17.0 Long-term use of hydroxychloroquine Z79.899 Encounter for monitoring of methotrexate therapy Z51.81; Z79.635
[2025-02-23 07:46] VITALS: BP 130/80; PULSE 66; O2SAT 92; BMI 37.6
== END 2025-02-23 08:11 | disposition home or self-care (01) ==
LOC: HO.RHE 07:32
PROVIDERS: PCP Family Medicine; Visit Provider Student in an Organized Health Care Education/Training Program
DX: D86.9 Sarcoidosis, unspecified (principal); M17.0 Bilateral primary osteoarthritis of knee; Z79.899 Other long term (current) drug therapy; Z51.81 Encounter for therapeutic drug level monitoring; Z79.631 Long term (current) use of antimetabolite agent
CPT/HCPCS: 99214

== ENCOUNTER 2025-07-20 09:06 | Outpatient (REF) | payer BC, SELFPAY ==
[2025-07-20 09:22] LABS: MANUAL DIFF FLAG NO
[2025-07-20 09:35] LABS: Hematocrit 36.7 % (37.0-47.0); Hemoglobin 11.8 g/dl (12.0-16.0); Imm Gran Abs Auto 0.01 X10*3/uL (0.00-0.03); Imm Gran Pct Auto 0.3 % (0.0-0.4); Lymphocytes Absolute Auto 0.4 X10*3/uL (1.2-4.9); Mean Corpuscular HGB Conc 32.2 g/dl (31.0-35.0); Mean Corpuscular Hemoglobin 29.7 pg (27.0-33.0); Mean Corpuscular Volume 92.4 fL (80.0-98.0); NRBC Abs Auto 0.000 X10*3/uL (0.0-0.012); NRBC Pct Auto 0.0 /100WBC (0.0-0.2); Platelet Count 160 X10*3/uL (160-400); Red Blood Count 3.97 X10*6/uL (4.20-5.50); White Blood Count 3.2 X10*3/uL (4.8-10.8)
--- OUTSIDE RECORDS SUMMARY | 2025-07-20 09:55 | XMS_ITS | Encounter Summary ---
Author Organization [facility] Address [address] [place] [address] Phone Care Team Providers Care Tool Crib Manager Name Role Phone Angelita Shaikh MD Primary Care Provider Angelita Shaikh MD Primary Care Provider [phone] Angelita Shaikh MD Primary Care Provider Angelita Shaikh MD Primary Care Provider Encounter Details Date Type Department Care Team (Latest Contact Info) Description 08/06/2021 Transcribe Orders [facility] Laboratory [address] [address] Latia Alcala PA 10 [place] [address] Vitamin D deficiency (Primary Dx); Anemia due to vitamin B12 deficiency, unspecified B12 deficiency type; Rectal bleeding; Personal history of colonic polyps Social History Tobacco Use Types Packs/Day Years Used Date Smoking Tobacco: Never Smokeless Tobacco: Never Alcohol Use Standard Drinks/Week Comments Yes 4 (1 standard drink = 0.6 oz pur e alcohol) weekly Comments No Sex and Gender Information Value Date Recorded Sex Assigned at Female 10/25/2020 9:58 AM EST Legal Sex Female 8:02 PM EST Gender Identity Female 10/25/2020 9:58 AM EST Sexual Orientation Not on file documented as of this encounter Plan of Treatment Upcoming Encounters Date Type Department Care Team (Late st Contact Info) Description 11/20/2025 8:30 AM EST Office Visit [facility] Pulmonary, Allergy and Critical Care Medicine [address] [place] [address] [place] [address] Jose Avila MD 10 [facility] 2nd [place] [address] documented as of this encounter Results * 25-OH vitamin D (08/06/2021 11:48 AM EST) 25 OH VIT D (TOTAL) 30 30 - 60 ng/mL [facility] Blood 08/06/2021 11:4 8 AM EST 08/06/2021 11:51 AM EST us Latia [facility] BLOOD ORDERABLES Final Result Performing Organization Address [facility] Co de Phone Number [address] [address] * Vitamin B12 (08/06/2021 11:48 AM EST) VITAMIN B12 602 232 - 1,245 pg/mL [facility] Blood 08/06/2021 11:4 8 AM EST 08/06/2021 11:51 AM EST Latia [facility] BLOOD ORDERABLES Final Result Performing Organization Address City/[facility] Co de Phone Number [address] [address] * (ABNORMAL) Ferritin (08/06/2021 11:48 AM EST) FERRITIN 9(L) 13 - 150 ug/L [facility] Blood 08/06/2021 11:4 8 AM EST 08/06/2021 11:51 AM EST us Latia [facility] BLOOD ORDERABLES Final Result [address] [address] * Folate (08/06/2021 11:48 AM EST) FOLIC ACID 11.2 4.2 - 19.9 ng/mL [facility] Blood 08/06/2021 11:4 8 AM EST 08/06/2021 11:51 AM EST Latia [facility] BLOOD ORDERABLES Final Result Performing Organization Address [facility] Co de Phone Number [address] [address] * (ABNORMAL) Iron and iron binding capacity (08/06/2021 11:48 AM EST) Pathologist [facility] IRON 35 30 - 160 ug/dL [facility] IRON BINDING CAPACITY 465(H) 228 - 428 ug/dL [facility] TRANSFERRIN SATURAT. 8(L) 15 - 50 % [facility] Blood 08/06/2021 11:4 8 AM EST 08/06/2021 11:51 AM EST us Latia [facility] BLOOD ORDERABLES Final Result Performing Organization Address [facility] Co de Phone Number [address] [address] * (ABNORMAL) Comprehensive metabolic panel (08/06/2021 11:48 AM EST) Pathologist [facility] SODIUM 138 133 - 146 mmol/L [facility] POTASSIUM 4.4 3.3 - 5.1 mmol/L [facility] CHLORIDE 101 96 - 108 mmol/L [facility] CO2 28 21 - 35 mmol/L [facility] BUN 29(H) 6 - 19 mg/dL [facility] CREATININE 0.80 0.5 - 1.5 mg/dL [facility] GLUCOSE 87 70 - 99 mg/dL [facility] ALBUMIN 4.3 3.9 - 4.8 g/dL [facility] TOTAL PROTEIN 8.3(H) 6.5 - 8.0 g/dL [facility] CALCIUM 9.9 8.4 - 10.3 mg/dL [facility] ALKALINE PHOSPHATASE 112 39 - 117 U/L [facility] TOTAL BILIRUBIN 0.2 0.0 - 1.2 mg/dL [facility] AST 29 0 - 37 U/L [facility] ALT 23 0 - 40 U/L [facility] GLOBULIN 4.0 1 - 4.8 g/dL [facility] EGFR 80 >59 mL/min/1.7 3m2 [facility] Comment:Estimated glomerular filtration rate calculated using the CKD-EPI equation. ANION GAP 13 10 - 20 mmol/L [facility] Blood 08/06/2021 11:4 8 AM EST 08/06/2021 11:51 AM EST us Latia [facility] BLOOD ORDERABLES Final Result Performing Organization Address City/State/[facility] Co de Phone Number [address] [address] * (ABNORMAL) CBC and differential (08/06/2021 11:48 AM EST) WBC 4.50 4.00 - 11.00 K/uL [facility] RBC 4.24 3.72 - 5.30 M/uL [facility] HGB 10.4(L) 11.4 - 15.9 g/dL [facility] HCT 34.1(L) 34.2 - 46.8 % [facility] PLT 222 140 - 430 K/uL [facility] MCV 80.4 78.0 - 97.0 fL [facility] MCH 24.5(L) 25.0 - 33.0 pg [facility] MCHC 30.5(L) 32.0 - 36.0 g/dL [facility] RDW 16.8(H) 11.0 - 16.0 % [facility] MPV 9.6 8.4 - 12.8 fl [facility] NRBC 0.00 0 /100 WBCs [facility] ABSOLUTE NRBC 0.00 0 K/uL [facility] DIFF METHOD Auto [facility] NEUTS 74.2 43.0 - 75.0 % [facility] LYMPHS 13.8(L) 18.2 - 47.4 % [facility] MONOS 8.0 4.00 - 11.00 % [facility] EOS 2.2 0.0 - 8.0 % [facility] BASOS 1.6 0.0 - 2.0 % [facility] Granulocytes, immature (%) 0.2 0.0 - 0.9 % [facility] ABSOLUTE NEUTS 3.34 1.80 - 7.70 K/uL [facility] ABSOLUTE LYMPHS 0.62(L) 1.00 - 3.10 K/uL [facility] ABSOLUTE MONOS 0.36 0.20 - 0.80 K/uL [facility] ABSOLUTE EOS 0.10 0.00 - 0.80 K/uL [facility] ABSOLUTE BASOS 0.07 0.00 - 0.09 K/uL [facility] Granulocytes, immature 0.01 0.00 - 0.05 K/uL [facility] Blood 08/06/2021 11:4 8 AM EST 08/06/2021 11:51 AM EST us Latia [facility] BLOOD ORDERABLES Final Result Performing Organization Address City/State/[facility] Co de Phone Number [facility] [address] [place] [address] documented in this encounter Visit Diagnoses Diagnosis Vitamin D deficiency- Primary Anemia due to vitamin B12 deficiency, unspecified B12 deficiency type Rectal bleeding Hemorrhage of rectum and anus Personal history of colonic polyps documented in this encounter Care Teams Tool Crib Manager Relationship Specialty Start Date End Date Angelita Shaikh MD PCP - General Family Medicine 08/15/19 01/04/23 Angelita Shaikh MD PCP - General Family Medicine 01/05/23 07/18/23 Angelita Shaikh MD PCP - General Family Medicine 07/19/23 11/18/23 Angelita Shiakh MD [address] [place] [id number] PCP - General Family Medicine 11/19/23 documented as of this encounter Additional Source Comments The information contained in this document represents components of the legal health record. It is not the complete legal health record.[facility]
--- OUTSIDE RECORDS SUMMARY | 2025-07-20 09:55 | XMS_ITS | Encounter Summary ---
Author Organization [facility] Address [address] [place] [phone] Phone Care Team Providers Care Communications Senior Associate Name Role Phone Angelita Shaikh MD Primary Care Provider Angelita Shaikh MD Primary Care Provider Angelita Shaikh MD Primary Care Provider Angelita Shaikh MD Primary Care Provider Encounter Details Date Type Department Care Team (Late Contact Info) Description 03/17/2022 Procedure Pass [facility], Ct Scan - [address] [address] Social History Tobacco Use Types Packs/Day Years Used Date Smoking Tobacco: Never Smokeless Tobacco: Never Alcohol Use Standard Drinks/Week Comments Not Currently 1 (1 standard drink = 0.6 oz pur e alcohol) weekly Comments No Sex and Gender Information Value Date Recorded Sex Assigned at Female 10/25/2020 9:58 AM EST Legal Sex Female 8:02 PM EST Gender Identity Female 10/25/2020 9:58 AM EST Sexual Orientation Not on file documented as of this encounter Plan of Treatment Upcoming Encounters Date Type Department Care Team (Late Contact Info) Description 11/20/2025 8:30 AM EST Office Visit [facility] Pulmonary, Allergy and Critical Care Medicine 10 [place] [address] Jose Avila MD [address] [place] [phone] [email or web address] documented as of this encounter Visit Diagnoses Not on filedocumented in this encounter Care Teams Communications Senior Associate Relationship Specialty Start Date End Date Angelita Shaikh MD PCP - General Family Medicine 08/15/19 01/04/23 Angelita Shaikh MD PCP - General Family Medicine 01/05/23 07/18/23 Angelita Shaikh MD PCP - General Family Medicine 07/19/23 11/18/23 Angelita Shaikh MD [address] [place] [id number] [email or web address] PCP - General Family Medicine 11/19/23 documented as of this encounter Additional Source Comments The information contained in this document represents components of the legal health record. It is not the complete legal health record.[facility]
--- OUTSIDE RECORDS SUMMARY | 2025-07-20 09:55 | XMS_ITS | Encounter Summary ---
Author Organization [facility] Address [address] [place] [address] Phone Care Team Providers Care Systems Accountant Name Role Phone Angelita Shaikh MD Primary Care Provider Angelita Shaikh MD Primary Care Provider Angelita Shaikh MD Primary Care Provider [phone] Angelita Shaikh MD Primary Care Provider Encounter Details Date Type Department Care Team (Late st Contact Info) Description 06/02/2022 Transcribe Orders [facility] [address] [place] [address] Jose Avila MD [address] [place] [address] [email or web address] Social History Tobacco Use Types Packs/Day Years [...] Pulmonary, Allergy and Critical Care Medicine 10 [place] [address] Jose Avila MD [address] [address] documented as of this encounter Visit Diagnoses Not on filedocumented in this encounter Care Teams Systems Accountant Relationship Specialty Start Date End Date Angelita Shaikh MD PCP - General Family Medicine 08/15/19 01/04/23 Angelita Shaikh MD PCP - General Family Medicine 01/05/23 07/18/23 Angelita Shaikh MD PCP - General Family Medicine 07/19/23 11/18/23 Angelita Shaikh MD [address] [place] [id number] PCP - General Family Medicine 11/19/23 documented as of this encounter Additional Source Comments The information contained in this document represents components of the legal health record. It is not the complete legal health record.[facility]
--- OUTSIDE RECORDS SUMMARY | 2025-07-20 09:56 | XMS_ITS | Encounter Summary ---
Author Organization [facility] Address [address] [place] [address] Phone Care Team Providers Care Manager In Training Name Role Phone Angelita Shaikh MD Primary Care Provider [phone] Angelita Shaikh MD Primary Care Provider Angelita Shaikh MD Primary Care Provider Angelita Shaikh MD Primary Care Provider Reason for Referral * MRI/CAT Scan - Closed Specialty Diagnoses / Procedures Referred By Emerald castanon Referred To Contact Radiology Diagnoses Atrophic gastritis, presence of bleeding unspecified Vitamin B deficiency Anemia, unspecified type Procedures CT Abdomen Only (No Pelvis) CHG CT SCAN OF ABDOMEN COMBO CHG CT SCAN OF ABDOMEN CONTRAST Ashvin Villarreal MD Phone: tel: fax: [email or web address] [address] [address] Phone: tel: Referral ID Status Reason Start Date Expiration Date Visits Re quested Visits Authorized [id number] Closed 10/26/2022 11/25/2022 1 1 Encounter Details Date Type Department Care Team (Latest Contact Info) Description 10/05/2022 Transcribe Orders Virtual Department 30 [place] [address] Ashvin Villarreal MD 10 [facility] 2 [place] [address] [email or web address] Atrophic gastritis, presence of bleeding unspecified (Primary Dx); Vitamin B deficiency; Anemia, unspecified type Social History Tobacco Use Types Packs/Day Years [...] Pulmonary, Allergy and Critical Care Medicine 10 [facility] [place] [address] [place] [address] Jose Avila MD [address] [place] [address] [place] [address] [email or web address] documented as of this encounter Results * CT ABDOMEN (VASCULAR NON-ANGIO) WITH CONTRAST (11/03/2022 8:03 AM EST) Anatomical Region Laterality Modality Abdomen, Abdominal Vasculature C omputed Tomography 11/03/2022 8:50 PM EST Impressions 11/04/2022 6:50 AM EST -Similar retroperitoneal and upper abdominal adenopathy, present since at least 08/15/2019. Differential considerations continue to include an indolent lymphoproliferative process and reactive miladis hyperplasia related to a systemic inflammatory condition. -Similar chronic changes in the partially imaged lower lung zones. Narrative 11/04/2022 6:[address] ABDOMEN (VASCULAR) WITH CONTRAST TECHNIQUE: Multidetector-row CTA of the abdomen and pelvis was performed after administration of intravenous contrast using tailored dose modulation techniques. Images were reconstructed in the axial, coronal, and sagittal planes, including angiographic image post-processing. COMPARISON: CT abdomen/pelvis 04/20/2022, chest CT 08/05/2019. FINDINGS: Lower Chest: Mosaic attenuation of the lung bases, present dating back to 2018, as well as chronic subpleural calcification and areas of subpleural bronchiectasis in the right middle lobe. 4 calcified pleural plaques. Liver: Subcentimeter inferior right hepatic lobe hypodensities most likely a benign cyst, unchanged. No suspicious focal liver lesion. Biliary: Normal. No biliary ductal dilatation. Spleen: Normal. No splenomegaly or focal lesions. Pancreas: Normal. No masses or ductal dilatation. Adrenal Glands: Normal. No nodules. Kidneys/Ureters: Normal. No solid masses, stones, or hydronephrosis. Bowel: Colonic diverticulosis. No distention or wall thickening. Peritoneum/Retroperitoneum: Normal. No masses, pneumoperitoneum, or fluid. Lymph Nodes: Retroperitoneal and upper abdominal adenopathy is not significantly changed since 04/20/2022, and also appears grossly similar to the imaged portion of the upper abdomen from chest CT on 08/15/2019. Net Trainer examples include a 1.4 cm short axis left para-aortic node on 3:38, a 1.5 cm portacaval node on 3:32, and a 1.3 cm gastrohepatic node on 3:22. Pelvic Organs/Bladder: Normal. No mass. Vessels: Normal. No abdominal aortic aneurysm. Bones/Soft Tissues: Degenerative changes. Grade 1 spondylolytic anterolisthesis of L4 and L5. No destructive osseous lesions. Procedure Note Tony Holt MD - 11/04/2022 CT ABDOMEN (VASCULAR) WITH CONTRAST TECHNIQUE: Multidetector-row CTA of the abdomen and pelvis was performedafter administration of intravenous contrast using tailored dosemodulation techniques. Images were reconstructed in the axial, coronal,and sagittal planes, including angiographic image post-processing. COMPARISON: CT abdomen/pelvis 04/20/2022, chest CT 08/05/2019. FINDINGS: Lower Chest: Mosaic attenuation of the lung bases, present dating back rn1725, as well as chronic subpleural calcification and areas of subpleuralbronchiectasis in the right middle lobe. 4 calcified pleural plaques. Liver: Subcentimeter inferior right hepatic lobe hypodensities most likelya benign cyst, unchanged. No suspicious focal liver lesion. Biliary: Normal. No biliary ductal dilatation. Spleen: Normal. No splenomegaly or focal lesions. Pancreas: Normal. No masses or ductal dilatation. Adrenal Glands: Normal. No nodules. Kidneys/Ureters: Normal. No solid masses, stones, or hydronephrosis. Bowel: Colonic diverticulosis. No distention or wall thickening. Peritoneum/Retroperitoneum: Normal. No masses, pneumoperitoneum, orfluid. Lymph Nodes: Retroperitoneal and upper abdominal adenopathy is notsignificantly changed since 04/20/2022, and also appears grossly similar tothe imaged portion of the upper abdomen from chest CT on 08/15/2019.Net Trainer examples include a 1.4 cm short axis left para-aortic nodeon 3:38, a 1.5 cm portacaval node on 3:32, and a 1.3 cm gastrohepatic nodeon 3:22. Pelvic Organs/Bladder: Normal. No mass. Vessels: Normal. No abdominal aortic aneurysm. Bones/Soft Tissues: Degenerative changes. Grade 1 spondylolyticanterolisthesis of L4 and L5. No destructive osseous lesions. IMPRESSION: -Similar retroperitoneal and upper abdominal adenopathy, present since atleast 08/15/2019. Differential considerations continue to include anindolent lymphoproliferative process and reactive miladis hyperplasiarelated to a systemic inflammatory condition. -Similar chronic changes in the partially imaged lower lung zones. Ashvin Villarreal MD IMG CT XSPECIALTY ORDERABLES Final Result documented in this encounter Visit Diagnoses Diagnosis Atrophic gastritis, presence of bleeding unspecified- Primary Vitamin B deficiency Unspecified vitamin B deficiency Anemia, unspecified type Atrophic gastritis, presence of bleeding unspecified Vitamin B deficiency Unspecified vitamin B deficiency Anemia, unspecified type documented in this encounter Care Teams Manager In Training Relationship Specialty Start Date End Date Angelita Shaikh MD PCP - General Family Medicine 08/15/19 01/04/23 Angelita Shaikh MD [email or web address] PCP - General Family Medicine 01/05/23 07/18/23 Angelita Shaikh MD PCP - General Family Medicine 07/19/23 11/18/23 Angelita Shaikh MD [address] [place] [phone] [email or web address] PCP - General Family Medicine 11/19/23 documented as of this encounter Additional Source Comments The information contained in this document represents components of the legal health record. It is not the complete legal health record.[facility]
--- OUTSIDE RECORDS SUMMARY | 2025-07-20 09:56 | XMS_ITS | Encounter Summary ---
Author Organization [facility] Address [address] [place] [address] Phone Care Team Providers Care University President Name Role Phone Angelita Shaikh MD Primary Care Provider Angelita Shaikh MD Primary Care Provider Angelita Shaikh MD Primary Care Provider Angelita Shaikh MD Primary Care Provider Reason for Referral * Outpatient Procedure - Closed Specialty Diagnoses / Procedures Referred By Emerald castanon Referred To Contact Radiology Diagnoses Sarcoidosis, unspecified Procedures Adult Echo TTE Brittany Hamilton MD Referral ID Status Reason Start Date Expiration Date Visits Re quested Visits Authorized [id number] Closed 12/03/2022 12/03/2023 1 1 Encounter Details Date Type Department Care Team (Late st Contact Info) Description 12/03/2022 Transcribe Orders Virtual Department 30 [place] [address] Brittany Hamilton MD [address] [facility] [place] [address] Sarcoidosis, unspecified Social History Tobacco Use Types Packs/Day Years [...] Description 11/20/2025 8:30 AM EST Office Visit CD Pulmonary, Allergy and Critical Care Medicine [address] [place] [address] Jose Avila MD [address] [place] [phone] documented as of this encounter Results * TTE COMPREHENSIVE (05/26/2023 11:05 AM EDT) Body Surface Area 2.10 m2 Height 165 cm Weight 104 kg Systolic BP 119 mmHg Diastolic BP 70 mmHg Left Atrium Dimension Anterior-Posterior 32 15 - 40 mm Aortic Valve Mean Gradient 5 mmHg Aortic Valve Time Velocity Integral 317 mm Aortic Valve Peak Velocity 144.0 cm/s Aortic Valve Peak Gradient 8 mmHg Aortic Sinus Diameter 29 mm Ascending Aorta Diameter 29 mm Inferior Vena Cava Diameter 25 0.0 - 21 mm Interventricular Septum Thickness 10 mm Left Ventricle Internal Diameter End Diastole 46 37 - 52 mm Left Ventricle Internal Diameter End Systole 29 22 - 35 mm Left Ventricular Outflow Tract Diameter 23.0 mm LVOT VTI REST 178 mm Left Ventricular Outflow Tract Velocity 0.8 m/s Left Ventricular Outflow Tract Gradient at Rest 3 mmHg Left Ventricular Posterior Wall Thickness 11 mm Ejection Fraction 67 50 - 75 Percent Mitral Valve A Wave Speed 87.3 cm/s Mitral Valve E Wave Speed 62.6 cm/s Right Ventricle Basal Diameter 47.3 25 - 41 mm Tricuspid Valve Peak Velocity 2.7 m/s Raw LV EF% 60 % Left Atrial Volume 54 mL Left Atrial Volume Index 25.71 mL/m2 Right Ventricle Peak Systolic Pressure 37 mmHg Right Atrium Pressure Estimated 8 mmHg Right Ventricle to Right Atrium Pressure Gradient 29 mmHg Aortic Valve Sinus Index 1 14 19 - 27 mm Ascending Aorta Diameter 14 mm Aortic Sinus Index 14 mm Ascending Aorta Index 14 mm Anatomical Region Laterality Modality Heart Ultrasound Narrative 05/26/2023 1:51 PM EDT Normal LV size and function EF 65%. There was borderline LVH. Right ventricle measures borderline dilated but looks normal in function. Normal diastolic function. No significant valvular heart disease is seen. Structurally normal heart. Left Ventricle Left ventricular cavity size is normal and the left ventricular wall thickness is increased. E/A 0.7, Lat E sharan 11.6cm/s, Med E sharan 7.72cm/s, E/E avg 6.5 There is concentric left ventricular hypertrophy. Left ventricular systolic function is normal. There are no segmental left ventricular wall motion abnormalities noted. The estimated ejection fraction is 67% (Normal 50-75%). The left ventricular ejection fraction was measured by the single dimension method. Left ventricular diastolic function appears within normal limits for age. Right Ventricle The right ventricular cavity is mildly dilated. TAPSE 2.39cm, RV S sharan 18.0cm/s No evidence of right ventricular hypertrophy. The right ventricular systolic function is normal. Left Atrium The left atrium is normal in size. The LA volume is 54 mL. The LA volume index is 25.71 mL/m2 (normal indexed value is 16-34 mL/m2). The pulmonary venous flow profiles are normal. Right Atrium The right atrium is borderline dilated. The IVC measures 25 mm (normal <=21 mm). The IVC demonstrates reduced collapse with inspiration which is consistent with elevated RA pressure. Mitral Valve There is no evidence of mitral stenosis. There is posterior mitral annular calcification. There is trace mitral regurgitation detected by spectral and color Doppler. Tricuspid Valve There is no evidence of tricuspid stenosis. There is evidence of mild tricuspid regurgitation by color and spectral Doppler. The RV systolic pressure was estimated from the peak TV regurgitant velocity. The estimated RV systolic pressure is 37 mmHg assuming a right atrial pressure of 8 mmHg. Aortic Valve The aortic valve appears normal. The aortic valve is tricuspid. There is thickening of multiple aortic leaflets. There is no evidence of valvular aortic stenosis. The peak aortic valve gradient is 8 mmHg. The mean aortic gradient is 5 mmHg. The visualized portions of the thoracic aorta appear normal. Pulmonic Valve The pulmonary artery is dilated. Interatrial Septum The interatrial septum appears normal. Interventricular Septum There is no evidence of a ventricular septal defect. General Findings The image quality was good (2). Technique(s) used in the evaluation: Color flow Doppler and Spectral Doppler. The predominant rhythm during the study was sinus. Brittany Hamilton MD CV ECHO ORDERAB LES Final Result documented in this encounter Visit Diagnoses Diagnosis Sarcoidosis, unspecified Sarcoidosis, unspecified documented in this encounter Care Teams University President Relationship Specialty Start Date End Date Angelita Shaikh MD PCP - General Family Medicine 08/15/19 01/04/23 Angelita Shaikh MD PCP - General Family Medicine 01/05/23 07/18/23 Angelita Shaikh MD PCP - General Family Medicine 07/19/23 11/18/23 Angelita Shaikh MD [address] [place] [phone] PCP - General Family Medicine 11/19/23 documented as of this encounter Additional Source Comments The information contained in this document represents components of the legal health record. It is not the complete legal health record.[facility]
--- OUTSIDE RECORDS SUMMARY | 2025-07-20 09:56 | XMS_ITS | Encounter Summary ---
Author Organization [facility] Address [address] [place] [address] Phone Care Team Providers Care E Business Specialist Name Role Phone Angelita Shaikh MD Primary Care Provider Agnelita Shaikh MD Primary Care Provider Angelita Shaikh MD Primary Care Provider Angelita Shaikh MD Primary Care Provider [phone] Encounter Details Date Type Department Care Team (Late st Contact Info) Description 12/03/2022 Procedure Pass [facility] [address] [place] [address] Social History Tobacco Use Types Packs/Day Years [...] Pulmonary, Allergy and Critical Care Medicine 10 [place], [place] [id number] Jose Avila MD [address] [place] [address] [email or web address] documented as of this encounter Visit Diagnoses Not on filedocumented in this encounter Care Teams E Business Specialist Relationship Specialty Start Date End Date Angelita Shaikh MD PCP - General Family Medicine 08/15/19 01/04/23 Angelita Shaikh MD PCP - General Family Medicine 01/05/23 07/18/23 Angelita Shaikh MD PCP - General Family Medicine 07/19/23 11/18/23 Angelita Shaikh MD [address] [place] [phone] [email or web address] PCP - General Family Medicine 11/19/23 documented as of this encounter Additional Source Comments The information contained in this document represents components of the legal health record. It is not the complete legal health record.[facility]
--- OUTSIDE RECORDS SUMMARY | 2025-07-20 09:56 | XMS_ITS | Encounter Summary ---
Author Organization [facility] Address [address] [place] [address] Phone Care Team Providers Care Wallpaper Inspector Name Role Phone Angelita Shaikh MD Primary Care Provider [phone] Angelita Shaikh MD Primary Care Provider Angelita Shaikh MD Primary Care Provider [phone] Angelita Shaikh MD Primary Care Provider Encounter Details Date Type Department Care Team (Late Contact Info) Description 02/03/2022 Procedure Pass [facility] Endoscopy Admitting Dept Virtual Department [address] [place] [phone] Social History Tobacco Use Types Packs/Day Years [...] Upcoming Encounters Date Type Department Care Team ([facility] Contact Info) Description 11/20/2025 8:30 AM EST Office Visit [facility] Pulmonary, Allergy and Critical Care Medicine 10 [place] [address] Jose Avila MD [address] [place] [address] [email or web address] documented as of this encounter Visit Diagnoses Not on filedocumented in this encounter Care Teams Wallpaper Inspector Relationship Specialty Start Date End Date Angelita Shaikh MD PCP - General Family Medicine 08/15/19 01/04/23 Angelita Shaikh MD PCP - General Family Medicine 01/05/23 07/18/23 Angelita Shaikh MD PCP - General Family Medicine 07/19/23 11/18/23 Angelita Shaikh MD [address] [place] [address] [email or web address] PCP - General Family Medicine 11/19/23 documented as of this encounter Additional Source Comments The information contained in this document represents components of the legal health record. It is not the complete legal health record.[facility]
--- OUTSIDE RECORDS SUMMARY | 2025-07-20 09:56 | XMS_ITS | Encounter Summary ---
Author Organization [facility] Address [address] [place] [address] Phone Care Team Providers Care Communication Studies Professor Name Role Phone Angelita Shaikh MD Primary Care Provider [phone] Angelita Shaikh MD Primary Care Provider [phone] Angelita Shaikh MD Primary Care Provider Angelita Shaikh MD Primary Care Provider [phone] Reason for Referral * Consultation (Elective) - Closed Specialty Diagnoses / Procedures Referred By Emerald castanon Referred To Contact Pulmonary Disease Diagnoses Interstitial lung disease Angelita Shaikh MD Phone: tel: fax: [email or web address] [facility] [address] [place] [address] Phone: tel: Referral ID Status Reason Start Date Expiration Date Visits Re quested Visits Authorized [id number] Closed 09/14/2019 09/14/2020 1 1 Encounter Details Date Type Department Care Team (Latest Contact Info) Description 09/14/2019 Transcribe Orders [facility] Pulmonary, Allergy and Critical Care Medicine [address] [place] [address] Jose Avila MD [address] [place] [phone] [email or web address] Interstitial lung disease (Primary Dx) Social History Tobacco Use Types Packs/Day Years [...] Upcoming Encounters Date Type Department Care Team ([facility] st Contact Info) Description 11/20/2025 8:30 AM EST Office Visit CD Pulmonary, Allergy and Critical Care Medicine [address] [place] [address] Jose Avila MD [address] [place] [phone] [email or web address] Scheduled Referrals Name Type Priority Associated Diagnoses Order Schedule Ambulatory referral to [facility] Pulmonology Outpatient Referral Routine Interstitial lung disease Ordered: 09/14/2019 documented as of this encounter Visit Diagnoses Diagnosis Interstitial lung disease- Primary Postinflammatory pulmonary fibrosis documented in this encounter Care Teams Communication Studies Professor Relationship Specialty Start Date End Date Angelita Shaikh MD [email or web address] PCP - General Family Medicine 08/15/19 01/04/23 Angelita Shaikh MD [email or web address] PCP - General Family Medicine 01/05/23 07/18/23 Angelita Shaikh MD PCP - General Family Medicine 07/19/23 11/18/23 Angelita Shaikh MD [address] [place] [address] [email or web address] PCP - General Family Medicine 11/19/23 documented as of this encounter Additional Source Comments The information contained in this document represents components of the legal health record. It is not the complete legal health record.[facility]
--- OUTSIDE RECORDS SUMMARY | 2025-07-20 09:56 | XMS_ITS | Encounter Summary ---
Author Organization [facility] Address [address] [place] [address] Phone Care Team Providers Care Tailing Machine Operator Name Role Phone Sergei Jay MD Primary Care Provider [phone] Angelita Shaikh MD Primary Care Provider [phone] Angelita Shaikh MD Primary Care Provider Angelita Shaikh MD Primary Care Provider Angelita Shaikh MD Primary Care Provider [phone] Reason for Referral * MRI/CAT Scan - Closed Specialty Diagnoses / Procedures Referred By Contsoheila t Referred To Contact Radiology Diagnoses Interstitial pulmonary disease, unspecified Procedures CT Chest Angelita Shaikh MD Phone: tel: fax: [email or web address] Referral ID Status Reason Start Date Expiration Date Visits Re quested Visits Authorized [id number] Closed 07/26/2019 08/25/2019 1 1 Encounter Details Date Type Department Care Team (Latest Contact Info) Description 07/27/2019 Transcribe Orders [facility] Department [address] [place] [id number] Angelita Shaikh MD [address] [place] [address] [phone] [email or web address] Interstitial pulmonary disease, unspecified (Primary Dx) Social History Tobacco Use Types Packs/Day Years Used Date Smoking Tobacco: Never Assessed Comments Unknown Sex and Gender Information Value Date Recorded Sex Assigned at Female 10/25/2020 9:58 AM EST Legal Sex Female 8:02 PM EST Gender Identity Female 10/25/2020 9:58 AM EST Sexual Orientation Not on file documented as of this encounter Plan of Treatment Upcoming Encounters Date Type Department Care Team (Late st Contact Info) Description 11/20/2025 8:30 AM EST Office [place] [facility] [place], Allergy and Critical Care Medicine [address] [place] [phone] Jose Avila MD [address] [place] [phone] [email or web address] documented as of this encounter Results * CT CHEST WITH CONTRAST (08/15/2019 8:10 AM EST) Anatomical Region Laterality Modality Chest Computed Tomogra phy 08/15/2019 8:45 AM EST Impressions 08/15/2019 8:58 AM EST 1. Probable thyroid nodules. 2. Prevascular lymphadenopathy. 3. Bilateral bronchovascular and interstitial densities. Question underlying nodule in the right upper lobe. Follow-up recommended. TOTAL CTDIvol: 6.1 mGy POS - [id number] Narrative 08/15/2019 8:58 AM EST CLINICAL HISTORY: Chronic cough. Chronic interstitial changes. Previous breast cancer. TECHNIQUE: CT images of the chest after administration of IV contrast. Multiplanar reformatted images generated. Automated exposure control utilized. COMPARISON: 07/20/2019 chest radiograph report from [facility] FINDINGS: The left lobe of the thyroid gland is heterogeneous. There may be one or more underlying nodules. The chest wall and surrounding soft tissues are unremarkable. There is no axillary adenopathy. The heart and great vessels are normal sized. No filling defects are visualized within the pulmonary arterial tree. There are prominent lymph nodes anterior to the aortic arch. One appears to reach 1.3 cm in short axis. There are small, partially calcified mediastinal lymph nodes. There is no focal lung consolidation or infiltrate. There is a patchy bronchovascular density in the posterior aspect of the right upper lobe. A confluent portion reaches 1 cm in diameter. The remainder reaches approximately 3.2 cm. There are prominent interstitial densities in both lungs with scarring versus interstitial thickening in the left lower lobe. There are no effusions. The incompletely imaged spleen is top normal sized. Included portions of the upper abdomen are otherwise unremarkable. There are no suspicious bone lesions. Procedure Note Minor Haskins MD - 08/15/2019 CLINICAL HISTORY: Chronic cough. Chronic interstitial changes. Previousbreast cancer. TECHNIQUE: CT images of the chest after administration of IV contrast.Multiplanar reformatted images generated. Automated exposure controlutilized. COMPARISON: 07/20/[facility] FINDINGS: The left lobe of the thyroid gland is heterogeneous. There may be one ormore underlying nodules. The chest wall and surrounding soft tissues are unremarkable. There is noaxillary adenopathy. The heart and great vessels are normal sized. No filling defects arevisualized within the pulmonary arterial tree. There are prominent lymph nodes anterior to the aortic arch. One appearsto reach 1.3 cm in short axis. There are small, partially calcifiedmediastinal lymph nodes. There is no focal lung consolidation or infiltrate. There is a patchybronchovascular density in the posterior aspect of the right upper lobe. Aconfluent portion reaches 1 cm in diameter. The remainder reachesapproximately 3.2 cm. There are prominent interstitial densities in bothlungs with scarring versus interstitial thickening in the left lower lobe.There are no effusions. The incompletely imaged spleen is top normal sized. Included portions ofthe upper abdomen are otherwise unremarkable. There are no suspicious bone lesions. IMPRESSION: 1. Probable thyroid nodules. 2. Prevascular lymphadenopathy. 3. Bilateral bronchovascular and interstitial densities. Questionunderlying nodule in the right upper lobe. Follow-up recommended. TOTAL CTDIvol: 6.1 mGy POS - [id number] Angelita Shaikh MD IM CT CHEST Final Result documented in this encounter Visit Diagnoses Diagnosis Interstitial pulmonary disease, unspecified- Primary Interstitial pulmonary disease, unspecified documented in this encounter Care Teams Tailing Machine Operator Relationship Specialty Start Date End Date Sergei Jay MD [address] [place] [address] [email or web address] PCP - General 07/06/17 08/14/19 Angelita Shaikh MD [address] [place] [phone] PCP - General Family Medicine 08/15/19 01/04/23 Angelita Shaikh MD [address] [place] [phone] PCP - General Family Medicine 01/05/23 07/18/23 Angelita Shaikh MD [address] [place] [phone] PCP - General Family Medicine 07/19/23 11/18/23 Angelita Shaikh MD [address] [place] [phone] PCP - General Family Medicine 11/19/23 documented as of this encounter Additional Source Comments The information contained in this document represents components of the legal health record. It is not the complete legal health record.[facility]
--- OUTSIDE RECORDS SUMMARY | 2025-07-20 09:56 | XMS_ITS | Encounter Summary ---
Author Organization [facility] Address [address] [place] [phone] Phone Care Team Providers Care Tractor Sweeper Driver Name Role Phone Angelita Shaikh MD Primary Care Provider Angelita Shaikh MD Primary Care Provider Angelita Shaikh MD Primary Care Provider Angelita Shaikh MD Primary Care Provider Encounter Details Date Type Department Care Team (Late Contact Info) Description 10/05/2022 Procedure Pass [facility], Ct Scan - [address] [address] Social History Tobacco Use Types Packs/Day Years [...] Pulmonary, Allergy and Critical Care Medicine [address] [place] [address] Jose Avila MD [address] [place] [phone] [email or web address] documented as of this encounter Visit Diagnoses Not on filedocumented in this encounter Care Teams Tractor Sweeper Driver Relationship Specialty Start Date End Date Angelita Shaikh MD PCP - General Family Medicine 08/15/19 01/04/23 Angelita Shaikh MD PCP - General Family Medicine 01/05/23 07/18/23 Angelita Shaikh MD PCP - General Family Medicine 07/19/23 11/18/23 Angelita Shaikh MD [address] [place] [phone] [email or web address] PCP - General Family Medicine 11/19/23 documented as of this encounter Additional Source Comments The information contained in this document represents components of the legal health record. It is not the complete legal health record.[facility]
--- OUTSIDE RECORDS SUMMARY | 2025-07-20 09:56 | XMS_ITS | Encounter Summary ---
Author Organization [facility] Address [address] [place] [phone] Phone Care Team Providers Care Belt Maker Name Role Phone Angelita Shaikh MD Primary Care Provider Angelita Shaikh MD Primary Care Provider Angelita Shaikh MD Primary Care Provider Angelita Shaikh MD Primary Care Provider Encounter Details Date Type Department Care Team (Latest Contact Info) Description 03/03/2022 Transcribe Orders Virtual Department [address] [place] [address] Ashvin Villarreal MD [address] [place] [phone] [email or web address] Anemia due to blood loss (Primary Dx); Vitamin B12 deficiency Social History Tobacco Use Types Packs/Day Years [...] CD Pulmonary, Allergy and Critical Care Medicine [address] [facility] [place] [address] Jose Avila MD [address] [place] [phone] documented as of this encounter Results * XR ABDOMEN 1 VIEW (03/05/2022 3:50 PM EDT) Anatomical Region Laterality Modality Abdomen Computed Radiogr aphy 03/06/2022 10:3 6 AM EDT Impressions 03/06/2022 10:38 AM EDT Nonspecific left upper quadrant calcifications which could be correlated with any history of chronic pancreatitis. No grossly distended bowel loops or large urinary calculi identified on supine imaging. POS - [id number] Narrative 03/06/2022 10:38 AM EDT COMPARISON: None FINDINGS: AP supine views were obtained. Multiple left upper quadrant calcifications are present which could possibly be related to the pancreatic body and tail. When allowing for stool overlying the kidneys no definitive intrarenal calculi are present. Right lower quadrant surgical clips are noted. No grossly distended bowel loops identified. Visualized skeletal structures intact. Procedure Note Jose Kennedy MD - 03/06/2022 COMPARISON: None FINDINGS: AP supine views were obtained. Multiple left upper quadrant calcificationsare present which could possibly be related to the pancreatic body andtail. When allowing for stool overlying the kidneys no definitiveintrarenal calculi are present. Right lower quadrant surgical clips arenoted. No grossly distended bowel loops identified. Visualized skeletalstructures intact. IMPRESSION: Nonspecific left upper quadrant calcifications which could be correlatedwith any history of chronic pancreatitis. No grossly distended bowel loopsor large urinary calculi identified on supine imaging. POS - [id number] Ashvin Villarreal MD IMG XR ABDOMEN Final Result documented in this encounter Visit Diagnoses Diagnosis Anemia due to blood loss- Primary Acute posthemorrhagic anemia Vitamin B12 deficiency Other B-complex deficiencies Anemia due to blood loss Acute posthemorrhagic anemia Vitamin B12 deficiency Other B-complex deficiencies documented in this encounter Care Teams Belt Maker Relationship Specialty Start Date End Date Angelita Shaikh MD PCP - General Family Medicine 08/15/19 01/04/23 Angelita Shaikh MD PCP - General Family Medicine 01/05/23 07/18/23 Angelita Shaikh MD PCP - General Family Medicine 07/19/23 11/18/23 Angelita Shaikh MD [address] [place] [phone] [email or web address] PCP - General Family Medicine 11/19/23 documented as of this encounter Additional Source Comments The information contained in this document represents components of the legal health record. It is not the complete legal health record.[facility]
--- OUTSIDE RECORDS SUMMARY | 2025-07-20 09:56 | XMS_ITS | Encounter Summary ---
Author Organization [facility] Address [address] [place] [phone] Phone Care Team Providers Care Steam Brush Operator Name Role Phone Angelita Shaikh MD Primary Care Provider [phone] Angelita Shaikh MD Primary Care Provider [phone] Angelita Shaikh MD Primary Care Provider Angelita Shaikh MD Primary Care Provider Encounter Details Date Type Department Care Team (Late Contact Info) Description 08/16/2019 Procedure Pass [facility] Endoscopy Admitting Dept Virtual Department [address] [place] [phone] Social History Tobacco Use Types Packs/Day Years [...] Upcoming Encounters Date Type Department Care Team ([facility] Contact Info) Description 11/20/2025 8:30 AM EST Office Visit [facility] Pulmonary, Allergy and Critical Care Medicine [address] [place], [place] [phone] Jose Avila MD [address] [address] [email or web address] documented as of this encounter Visit Diagnoses Not on filedocumented in this encounter Care Teams Steam Brush Operator Relationship Specialty Start Date End Date Angelita Shaikh MD [email or web address] PCP - General Family Medicine 08/15/19 01/04/23 Angelita Shaikh MD [email or web address] PCP - General Family Medicine 01/05/23 07/18/23 Angelita Shaikh MD PCP - General Family Medicine 07/19/23 11/18/23 Angelita Shaikh MD [address] [place] [phone] [email or web address] PCP - General Family Medicine 11/19/23 documented as of this encounter Additional Source Comments The information contained in this document represents components of the legal health record. It is not the complete legal health record.[facility]
--- OUTSIDE RECORDS SUMMARY | 2025-07-20 09:56 | XMS_ITS | Clinical Summary ---
Author Organization Merged With [facility] Address [address] [place] [phone] Phone Care Team Providers Care Supervisor [facility] Name Role Phone Angelita Amador MD Primary Care Provider Allergies Active Allergy Reactions Criticality Noted Date Comments Lisinopril Cough 02/23/2020 Pollen Extracts 08/28/2019 Medications albuterol 90 mcg/actuation inhaler Inhale 2 puffs into the lungs daily. Active fluticasone propionate (FLONASE) 50 mcg/actuation nasal spray 1-2 sprays by Nasal route daily. 1 Bottle 11 0 Active Additional Information Patient taking differently:1-2 spray Nasal Daily,prn, Reported on 05/22/2025 hydroCHLOROthia zide (HYDRODIURIL) 12.5 MG tablet Take 12.5 mg by mouth daily. 0 Active cholecalciferol (VITAMIN D3) 2,000 unit tablet Take 4,000 Units by mouth daily. Active vitamin E 400 UNIT capsule Take 400 Units by mouth daily. Active cyanocobalamin, vitamin B-12, 1000 MCG tablet Take 1,000 mcg by mouth daily. Active hydroxychloroqu ine (PLAQUENIL) 200 mg tablet 3 Active folic acid (FOLVITE) 1 MG tabletIndicatio ns:Vitamin D deficiency Take 1 tablet (1 mg total) by mouth daily. 90 tablet 3 4 Active Additional Information Patient taking differently:1 mg Oral Daily,Taking 6 days a week, Reported on 05/22/2025 methotrexate 2.5 MG Oral tabletIndicatio ns:Erythema nodosum,Sarcoid osis Take 8 tablets (20 mg total) by mouth once a week. 40 tablet 11 5 Active Additional Information Patient taking differently:20 mg Oral Weekly,7 tablets weekly- all on one day- folic acid on other day, Reported on 05/22/2025 budesonide (PULMICORT FLEXHALER) 180 mcg/actuation inhaler Inhale 2 puffs into the lungs 2 (two) times a day as needed (cough or SOB). 1 each 3 5 Active mometasone (NASONEX) 50 mcg/actuation nasal spray 2 sprays by Nasal route daily. 17 g 12 5 Active atovaquone (MEPRON) 750 mg/5 mL suspension Take 10 mL (1,500 mg total) by mouth daily. 300 mL 5 5 Active beclomethasone (QVAR REDIHALER) 80 mcg/actuation inhaler Inhale 2 puffs into the lungs 2 (two) times a day. 10.6 g 5 5 Active Active Problems Problem Noted Date Diagnosed Date Lymphopenia 10/31/2024 Assessment & Plan (05/22/2025 7:54 PM EDT): Recheck CBC for absolute count along with absolute CD4 count flow cytometry. If CD4 is less than 200, would likely recommend PJP prophylaxis with Bactrim. Assessment & Plan (10/31/2024 8:47 AM EST): Persistent lymphopenia, last level 470. As discussed, will recheck today with usual labs. Will check absolute CD4 count to ensure not less than 200. Will additionally check an HIV test which the patient is agreement with, though she denies any known risk factors. 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 Assessment & Plan (11/18/2023 4:00 PM EST): Markedly improved with the addition of Plaquenil. Currently being followed closely by rheumatology. Assessment & Plan (07/19/2023 11:09 AM EDT): Modest improvement with initiation of Plaquenil 6 weeks ago. Continue to regress and thus will continue therapy and monitor. Assessment & Plan (12/18/2022 12:00 PM EDT): Lower extremity subcutaneous nodules highly suggestive of erythema nodosum. Somewhat unusual to develop at this stage of her sarcoidosis, particularly on methotrexate. As such, we will refer for biopsy to confirm diagnosis. Medication monitoring encounter 08/21/2022 Assessment & Plan (10/31/2024 8:46 AM EST): Due for to recheck LFTs and CBC as above. Assessment & Plan (11/18/2023 4:01 PM EST): Check screening labs this week before she leaves for 10-week sabbatical, if stable, can continue to monitor every 3 to 4 months. Assessment & Plan (07/19/2023 11:09 AM EDT): Due for labs today with CBC with differential and chemistry panel. Assessment & Plan (12/18/2022 12:00 PM EDT): Recheck CBC and LFTs on methotrexate. Vitamin D deficiency, unspecified 12/27/2019 Assessment & Plan (05/22/2025 7:53 PM EDT): Currently takes vitamin D 4000 units daily. Will recheck vitamin D stores and active vitamin D given that she is fair skinned and despite summer season, was at high latitude. Assessment & Plan (10/31/2024 8:45 AM EST): Mildly low vitamin D last checked over the summer. Will recheck now currently on 4000 units/day supplement. Assessment & Plan (05/10/2024 9:08 AM EDT): Recheck vitamin D levels and urine calcium. Assessment & Plan (11/04/2022 4:00 PM EST): Continue vitamin D supplementation. Assessment & Plan (08/21/2022 12:18 PM EST): Continue vitamin D replacement. Will check baseline levels prior to initiating methotrexate. Assessment & Plan (10/22/2021 4:02 PM EST): Recent vitamin D levels remain normal. Agree with current dosing of vitamin D supplement. Assessment & Plan (06/24/2020 9:00 AM EDT): Continue current vitamin D replacement. Check total level and urine calcium excretion with follow-up sarcoid labs in October. Assessment & Plan (02/23/2020 3:01 PM EDT): Improved on supplement if no elevation active vitamin D. Continue daily vitamin D replacement. Assessment & Plan (12/27/2019 11:36 AM EDT): Severe vitamin D deficiency, on replacement therapy with clinical improvement. Recommend recheck vitamin D in 2 months along with urine calcium and active vitamin D due to potential risk for unregulated metabolism in the setting of sarcoidosis. Sarcoidosis 11/14/2019 Overview (10/31/2024): Pulmonary and cutaneous, lupus pernio on biopsy, and ocular with left-sided anterior uveitis. Dr. Cunha (ophthalmology) - to taper off methotrexate May 2026 if remains in remission. Assessment & Plan (05/22/2025 7:52 PM EDT): Multisystem sarcoidosis including Lupus pernio, ocular involvement and erythema nodosum. Symptomatically he has done relatively well over the summer on moderate dose methotrexate of 7.5 mg/week and Plaquenil. She has ophthalmology follow-up tomorrow, and if no evidence of uveitis, will be scheduled for cataract surgery. Our goal would be to continue therapy for another 12 months before tapering. Plan will be to continue current dose but will be due to check blood work today. Assessment & Plan (10/31/2024 8:50 AM EST): Multisystem sarcoidosis with no recurrence of lupus pernio, well controlled erythema nodosum, no active skin disease or cough and uveitis in remission. Doing well and tolerating methotrexate 20 mg weekly along with Plaquenil. Recheck counts for lymphopenia as outlined below. Will continue current management though if significant lymphopenia with CD4 count less than 200, would discuss with Dr. Cunha regarding slight decrease in methotrexate. If not recommended, would then consider Bactrim prophylaxis. Refill Pulmicort but if not covered by insurance, will need to check up for alternative ICS. Assessment & Plan (05/10/2024 9:07 AM EDT): Sarcoidosis currently well-controlled on moderate to high-dose weekly methotrexate and Plaquenil. No evidence of significant recurrence. Will repeat surveillance labs today. If lymphocyte count less than 500, may need to consider reducing methotrexate dose versus checking lymphocyte profile and if low CD4's, consider Bactrim prophylaxis. Assessment & Plan (11/18/2023 4:00 PM EST): Multisystem sarcoidosis currently well-controlled on methotrexate 20 mg weekly with replacement folic acid. Tolerating well with stable labs. For treatment for uveitis, first documented exam with ocular remission May 2023. Plan will be to continue current dose of methotrexate for 24 months, then taper. Continue folic acid with weekly methotrexate. PFTs in 6 months. Recheck soluble IL-2 receptor level. Assessment & Plan (07/19/2023 11:10 AM EDT): No significant symptoms of pulmonary involvement other than abnormal exam. We will check chest x-ray. If stable, would plan for a PFT in 1 year and may be a CT as well. If abnormal, would repeat chest CT and PFTs sooner. Continue methotrexate 20 mg/week with folic acid. Will wait for ophthalmology follow-up regarding specific recommendations for duration of therapy. Due for COVID-19 vaccine in approximately 1 to 2 weeks. Recommend that she hold methotrexate 1 to 2 weeks prior and 1 week after vaccination. Assessment & Plan (12/18/2022 12:01 PM EDT): Clinically stable with improved ocular disease, lupus pernio, and no pulmonary symptoms. Recheck soluble IL-2 receptor Continue methotrexate at 20 mg/week with folic acid. Refer for biopsy of possible erythema nodosum. Assessment & Plan (11/04/2022 4:00 PM EST): Currently stable, tolerating moderate dose methotrexate, off hydroxychloroquine. Given treatment for uveitis, recommend further first dose of methotrexate to 20 mg/week. We will repeat CBC and chemistries today to ensure stable. If so, can then increase to 8 tablets weekly. Continue folic acid 6 days/week. Recommend she repeat blood work in 2 weeks and if stable, then monthly until follow-up. Assessment & Plan (08/21/2022 12:18 PM EST): Multisystem sarcoidosis with development of ocular sarcoid despite stable cutaneous and pulmonary disease. Progression despite hydroxychloroquine. Appreciate input from ophthalmology and agree with change in systemic therapy. PLAN: Continue hydroxychloroquine for another month, then can discontinue once on therapeutic dose of methotrexate Obtain baseline blood work, including CBC, CMP, and repeat baseline IL-2 receptor level START methotrexate. We will start with 10 mg or 4 tablets once weekly. Start high-dose folic acid 1 mg 6 days/week, skipping methotrexate day. If tolerates and labs stable, increase by 1 tablet every 2 weeks to goal dose of 15 mg/week. Reviewed typical side effects including GI upset and fatigue. Rare serious side effects including hepatitis and pneumonitis also reviewed. Monitor labs every 2 weeks during dose increase, then will extend to every month until stable and every 3 months If develops recurrent uveitis on low-dose methotrexate, will increase up to 25 mg/week. Assessment & Plan (10/22/2021 4:04 PM EST): Cutaneous disease appears quiescent. PFTs from 1 year ago with slight decrease in volumes low DLCO relatively stable. Lungs remain clear on exam. Ocular finding raises concern for possible iritis/anterior uveitis as a manifestation of sarcoid. RECOMMENDATION: Repeat labs as ordered. Obtain chest x-ray as ordered Repeat full PFTs. If any further decrement, would obtain noncontrast chest CT. Continue hydroxychloroquine for now. Await findings from ophthalmology. Assessment & Plan (10/28/2020 4:17 PM EST): Clinically stable with no recurrent lupus pernio lesions. Lung exam stable, chest x-ray stable, though slight decline in diffusion capacity and lung volumes. Some of the latter may be due to weight gain. Labs currently deferred as had some drawn by PCP. Have asked they be forwarded to me. RECOMMENDATION: Continue current dose of Plaquenil 200 mg twice daily Vitamin D supplement per PCP Await blood work drawn earlier today Plan additional labs including urine calcium and soluble IL-2 receptor level in 6 months. If any worsening shortness of breath or increased cough, low threshold to repeat dedicated chest CT. Assessment & Plan (06/24/2020 9:00 AM EDT): Markedly improved on twice daily hydroxychloroquine. No side effects, reviewed importance of close monitoring of visual changes and ophthalmologic exam every 6 months. Continue current therapy. Continue Flonase as needed. Can discontinue Pulmicort unless cough recurs. Repeat full eval in October with follow-up to review studies unless changes occur. Assessment & Plan (02/23/2020 3:02 PM EDT): Clinically improved on now 2 months of hydroxychloroquine. Emphasized maximum benefit may take up to 3 months. Monitor for recurrence of lupus pernio lesions or development of other skin lesions. Monitor for any visual side effects, should stop immediately. Discussed use of protection for sun exposure given risk of photosensitivity. If develops recurrent lupus pernio, would consider intermittent steroid injections versus change to alternative therapy such as either minocycline or methotrexate. Assessment & Plan (12/27/2019 11:40 AM EDT): Primary symptom is cough and nasal lesion. Status post biopsy and resection of lupus pernio lesion. High incidence of recurrence in the systemic therapy recommended. Reviewed typical therapy including hydroxychloroquine and/or tetracyclines. Given likelihood of response and toxicity profile, recommend trial of hydroxychloroquine first. Patient aware of national shortage given current off label use for COVID- 19. RECOMMENDATION: Prescription sent for hydroxychloroquine, 200 mg twice daily. Potential side effects reviewed including photosensitivity, sleep disturbance, and rashes, either mild or potentially life-threatening. Also risk of retinal toxicity. Patient instructed if develops significant rash to stop medication and contact our provider. Likewise, any change in vision at all medication should be stopped and urgent follow-up with ophthalmology. Recommend at least every 6-month ophthalmologic exam. Check G6PD level though recent literature reviews describes extremely low incidence of hemolytic anemia in general rheumatologic population. Reevaluate 2 months into therapy. Chronic cough 11/14/2019 Assessment & Plan (05/22/2025 7:53 PM EDT): No recurrent cough at this time. Has Pulmicort on hand to resume if recurs. Will refill his current prescription out of date. Assessment & Plan (05/10/2024 9:07 AM EDT): Resolved prior cough with transient illness with use of Pulmicort. Continue as needed. Assessment & Plan (11/18/2023 4:00 PM EST): No recurrence of significant cough on high-dose methotrexate. Pulmicort as needed. Assessment & Plan (07/19/2023 11:09 AM EDT): Continue Pulmicort as needed. Assessment & Plan (10/28/2020 4:15 PM EST): Mild recurrence. Unclear if due to dryness of air specifically versus sarcoid. Consider resuming Pulmicort if fails to improve. Assessment & Plan (06/24/2020 9:00 AM EDT): As above, can hold Pulmicort as suspect previous cough due to DANIEL inhibitor. Assessment & Plan (02/23/2020 3:03 PM EDT): Significantly improved, suspect combination DANIEL inhibitor cough and sarcoidosis. Continue to monitor for recurrence. Avoid DANIEL inhibitors. Pulmicort and/or albuterol as needed. Assessment & Plan (12/27/2019 11:41 AM EDT): Persistent cough. Differential includes DANIEL inhibitor induced cough and or airway sarcoidosis. Recommend discontinue lisinopril once again and contact PCP for alternative antihypertensive. Continue Pulmicort Flexhaler 2 puffs twice daily. Monitor for improvement in cough with above as well as potentially start of hydroxychloroquine, though given shortages, unclear when it will be available. Assessment & Plan (11/14/2019 12:41 PM EST): Based on lung exam high suspicion related to underlying lung disease again likely from sarcoidosis. Given normal current blood pressure, would first start with discontinuing low- dose lisinopril for 4 weeks and observing if cough resolves. If no change, would start high-dose inhaled corticosteroid. Prescription sent for Pulmicort 180 mcg 2 puffs twice daily. If ineffective can actually double the dose. Patient to verify insurance coverage prior to obtaining. Chronic rhinitis 11/14/2019 Assessment & Plan (05/22/2025 7:53 PM EDT): Persistent rhinitis symptoms. Recommend try changing to Nasonex from Flonase. Assessment & Plan (05/10/2024 9:07 AM EDT): Active rhinitis on exam Would resume nasal saline and Flonase once daily. Assessment & Plan (07/19/2023 11:09 AM EDT): Continue nasal saline and Flonase as needed. Assessment & Plan (08/21/2022 12:18 PM EST): Continue Flonase as needed Assessment & Plan (10/22/2021 4:07 PM EST): Continue Flonase and nasal saline as needed. Assessment & Plan (10/28/2020 4:15 PM EST): Minimal persistent rhinitis. Continue Flonase as needed. Assessment & Plan (02/23/2020 3:03 PM EDT): Allergic and nonallergic. Suggest increase use of Flonase. As needed antihistamines for bothersome allergy symptoms. Assessment & Plan (12/27/2019 11:40 AM EDT): Possibly related to sarcoidosis. Continue nasal steroids. Reevaluate when able to have [id number] exam. Assessment & Plan (11/14/2019 12:40 PM EST): Severe inflammatory appearing rhinitis. Differential includes allergic or nonallergic rhinitis but also sarcoidosis. Recommend continued nasal saline. Would start moderate dose nasal steroids. Prescription for Flonase provided. Depending on response, and additional work-up, could consider further treatment as indicated. Encounters Date Type Department Care Team Description 05/28/2025 Telephone [facility], Allergy and Critical Care Medicine [address] [place] [address] Darcy Grubbs Fluticasone [facility] 05/23/2025 8:46 AM EDT - 05/23/2025 11:59 PM EDT Hospital Encounter [facility] [address] [place] [address] Jose Avila MD Discharge Disposition: Home or Self Care 05/23/2025 Telephone CD [facility] Allergy [facility] Care Medicine [address] [place] [id number] Darcy Grubbs Pulmicort 180 Pa request from [facility]; Medication Prior Authorization (budesonide (PULMICORT FLEXHALER) 180 mcg/actuation inhaler PA) 05/22/2025 8:30 AM EDT Office Visit [facility] Medicine [address] [place] [id number] Jose Avila MD Vitamin D deficiency, unspecified (Primary Dx); Sarcoidosis; Chronic rhinitis; Chronic cough; Lymphopenia; Medication monitoring encounter from Last 3 Months Immunizations Immunization Administration Dates Next Due COVID-19 (Pre-07/12) Pfizer Vaccine, mRNA, PF 07/17/2022 INFLUENZA, SPLIT VIRUS, TRIVALENT PF 07/04/2013 INFLUENZA, SPLIT VIRUS, TRIV ALENT W/ PRESERVATIVE IM 06/27/2012 Influenza Quadrivalent Prese rvative Free IM 07/11/2021,07/04/2019,09/16/2018,2015,08/08/2015 Influenza Quadrivalent w/ Preservative IM 07/10/2022,07/06/2020 Influenza, Unspecified Formulation 08/04/2017, Td (adult),2 Lf Tetanus Toxo id, PF, Adsorbed 02/22/2017 Tdap 12/31/2006 Zoster recombinant 08/04/2019,08/01/2019, 019 Family History Medical History Relation Comments COPD Paternal Grandfather Relation Status Comments Father Mother Paternal Grandfather Social History Tobacco Use Types Packs/Day Years Used Date Smoking Tobacco: Never Smokeless Tobacco: Never Tobacco Cessation:Counseling Given: Not Answered Alcohol Use Standard Drinks/Week Comments Not Currently 1 (1 standard drink = 0.6 oz pur e alcohol) weekly Education Answer Date Recorded Are you interested in more education? Not on misti e 01/14/2023 Are you concerned about learning? Not on file 01/14/2023 No 01/14/2023 No 01/14/2023 Digital Access Answer Date Recorded No 02/15/2023 No 02/15/2023 Reliable internet access at home? Not on file 02/15/2023 Device with a working camera? Not on file Comments No Sex and Gender Information Value Date Recorded Sex Assigned at Female 10/25/2020 9:58 AM EST Legal Sex Female 8:02 PM EST Gender Identity Female 10/25/2020 9:58 AM EST Sexual Orientation Not on file Last Filed Vital Signs Vital Sign Reading Time Taken Comments Blood Pressure 114/62 05/22/2025 8:18 AM EDT Pulse 66 05/22/2025 8:18 AM EDT Temperature 36.3 C (97.4 F) 05/22/2025 8:18 AM EDT Respiratory Rate 16 02/03/2022 8:40 AM EDT Oxygen Saturation 97% 05/22/2025 8:18 AM EDT Inhaled Oxygen Concentration - - Weight 99.9 kg (220 lb 3.2 oz) 05/22/2025 8:18 A M EDT Height 165.1 cm (5' 5 ) 05/22/2025 8:18 AM EDT Body Mass Index 36.64 05/22/2025 8:18 AM EDT Plan of Treatment Upcoming Encounters Date Type Department Care Team (Late st Contact Info) Description 11/20/2025 8:30 AM EST Office Visit [facility] [address] [facility] [place] [place] [address] Jose Avila MD [address] [phone] [email or web address] Health Maintenance Due Date Last Done Comments DEPRESSION SCREENING 1973 HEPATITIS C SCREENING 1979 COLOGUARD 2006 FIT TEST 2006 FOBT 2006 SIGMOIDOSCOPY 2006 VIRTUAL COLONOSCOPY 2006 RSV VACCINE (1 - Risk 50-74 years 1-dose series) 2011 LIPID PANEL 03/12/2013 03/12/2008, 04/25/2004 INFLUENZA VACCINE (#1) 2025 , 06/18/2023, 07/10/2022, Additional history exists COVID-19 VACCINE ( season) 2025 06/16/2024, 08/07/2023, 08/07/2023, Additional history exists POTASSIUM LEVEL 05/23/2026 05/23/2025, 01/18, 10/31/2024, Additional history exists Adult Td,Tdap Booster 02/22/2027 02/22/2017, 007 PAP SMEAR 08/16/2027 08/16/2024, 09/16/2018 SCREENING FOR DIABETES 05/23/2028 05/23/2025 COLONOSCOPY 08/16/2029 08/16/2019 COLORECTAL CANCER SCREENING 08/16/2029 ZOSTER VACCINES Completed 08/04/2019, 07/21, 05/23/2019 PNEUMOCOCCAL VACCINES (50+ years) Completed 06/16/2024 HIV ONE-TIME SCREENING (18-65 YEARS) Completed 10/31/2024 SMOKING STATUS SCREENING (Once After 26 Yrs) Completed 05/22/2025 HEPATITIS A VACCINES Aged Out No long er eligible based on patient's age to complete this topic HIB VACCINES Aged Out No longer eligi ble based on patient's age to complete this topic MENINGOCOCCAL VACCINES (ACWY) Aged Out No longer eligible based on patient's age to complete this topic MENINGOCOCCAL VACCINES (B) Aged Out N o longer eligible based on patient's age to complete this topic Medical Devices Not on file Procedures Procedure Name Priority Date/Time Associated Diagnosis Comments 25-OH VITAMIN D Routine 05/23/2025 8:47 AM EDT Vitamin D deficiency, unspecified 1-25-OH VITAMIN D Routine 05/23/2025 8:4 7 AM EDT Vitamin D deficiency, unspecified CBC AND DIFFERENTIAL Routine 05/23/2025 8:47 AM EDT Sarcoidosis CD4 T-CELL COUNT Routine 05/23/2025 8:47 AM EDT Sarcoidosis COMPREHENSIVE METABOLIC PANEL Routine 05/23/2025 8:47 AM EDT Sarcoidosis INTERLEUKIN 2 RECEPTOR Routine 8:47 AM EDT Sarcoidosis PAP TEST Routine 08/16/2024 12:00 AM EST ENDOSCOPY, COLON 08/16/2019 7:31 AM EST from Last 3 Months or Most Recently Relevant to Health Maintenance Results * (ABNORMAL) INTERLEUKIN 2 RECEPTOR (05/23/2025 8:47 AM EDT) IL-2 receptor alpha soluble 1,166(H) <=959 pg/mL [facility] [address] Comment: (NOTE) ADDITIONAL INFORMATION This test was developed and its performance characteristics determined by [facility] in a manner consistent with CLIA requirements. This test has not been cleared or approved by the U.S. Food and Drug Administration. Blood 05/23/2025 8:47 AM EDT 05/23/2025 9:02 AM EDT Jose Avila MD LAB BLOOD ORDERABLES Final Res ult Performing Organization Address City/[facility]/ZIP Co de Phone Number [facility] [address] [place] [address] * (ABNORMAL) CD4 T-cell count (05/23/2025 8:47 AM EDT) CD45 LYMPH COUNT 0.42(L) 0.82 - 2.84 thou/[facility] MED/PATH [address] %CD3 (T CELLS) 62 58 - 86 % [facility]/PATH [address] %CD4 (HELPER CELLS) 38 32 - 64 % [facility]/PATH [address] %CD8 (SUPPR CELLS) 24 8 - 40 % [facility]/PATH [address] CD3 (T CELLS) 259(L) 550 - 2,202 cells/mc L [facility]/PATH [address] CD4 (HELPER CELLS) 159(L) 365 - 1,437 cells/mc L [facility]/PATH [address] CD8 (SUPPR CELLS) 100 80 - 846 cells/mc L [facility]/PATH [address] H/S RATIO 1.6 >=0.9 [facility] Comment: (NOTE) ADDITIONAL INFORMATION This test was developed using an analyte specific reagent. Its performance characteristics were determined by [facility] in a manner consistent with CLIA requirements. This test has not been cleared or approved by the U.S. Food and Drug Administration. CD4 COUNT COMMENT Test component not applicable or not reported. [facility] [address] [place] Blood 05/23/2025 8:47 AM EDT 05/23/2025 9:02 AM EDT Jose Avila MD LAB BLOOD ORDERABLES Final Res ult Performing Organization Address [facility]/ZIP Co de Phone Number [facility]/PATH [address] [place], [place] [id number] * (ABNORMAL) Comprehensive metabolic panel (05/23/2025 8:47 AM EDT) Pathologist [facility] [place] SODIUM 138 133 - 146 mmol/L [facility] POTASSIUM 4.1 3.3 - 5.1 mmol/L [facility] CHLORIDE 102 96 - 108 mmol/L [facility] CO2 26 21 - 35 mmol/L [facility] BUN 22(H) 6 - 19 mg/dL [facility] CREATININE 0.60 0.5 - 1.5 mg/dL [facility] GLUCOSE 96 70 - 99 mg/dL [facility] ALBUMIN 4.1 3.9 - 4.8 g/dL [facility] TOTAL PROTEIN 7.1 6.5 - 8.0 g/dL [facility] CALCIUM 9.6 8.4 - 10.3 mg/dL [facility] ALKALINE PHOSPHATASE 101 39 - 117 U/L [facility] TOTAL BILIRUBIN <0.2 0.0 - 1.2 mg/dL [facility] AST 38(H) 0 - 37 U/L [facility] ALT 60(H) 0 - 40 U/L [facility] GLOBULIN 3.0 1 - 4.8 g/dL [facility] EGFR 100 >59 mL/min/1.7 3m2 [facility] Comment:Estimated glomerular filtration rate calculated using the CKD-EPI refit equation. ANION GAP 14 10 - 20 mmol/L [facility] Blood 05/23/2025 8:47 AM EDT 05/23/2025 9:02 AM EDT us Jsoe Avila MD LAB BLOOD ORDERABLES Final Res ult [address] [address] * 1-25-OH vitamin D (05/23/2025 8:47 AM EDT) 1,25 (OH) 2 Vitamin D3 45 18 - 78 pg/mL [facility] Comment: (NOTE) ADDITIONAL INFORMATION This test was developed and its performance characteristics determined by [facility] in a manner consistent with CLIA requirements. This test has not been cleared or approved by the U.S. Food and Drug Administration. Blood 05/23/2025 8:47 AM EDT 05/23/2025 9:02 AM EDT Jose Avila MD LAB BLOOD ORDERABLES Final Res ult [facility] [address] [place] [address] * 25-OH vitamin D (05/23/2025 8:47 AM EDT) Pathologist [facility] [place] 25 OH VIT D (TOTAL) 35 30 - 60 ng/mL [facility] Blood 05/23/2025 8:47 AM EDT 05/23/2025 9:02 AM EDT Jose Avila MD LAB BLOOD ORDERABLES Final Res ult Performing Organization Address City/[facility] Co de Phone Number [address] [address] * (ABNORMAL) CBC and differential (05/23/2025 8:47 AM EDT) [facility] WBC 3.56(L) 4.00 - 11.00 K/uL [facility] RBC 3.88(L) 4.00 - 5.20 M/uL [facility] HGB 11.6(L) 12.0 - 16.0 g/dL [facility] HCT 35.6(L) 36.0 - 46.0 % [facility] PLT 169 150 - 450 K/uL [facility] MCV 91.8 80.0 - 100.0 fL [facility] MCH 29.9 27.0 - 31.0 pg [facility] MCHC 32.6 32.0 - 36.0 g/dL [facility] RDW 14.1 11.5 - 14.5 % [facility] MPV 9.4 8.4 - 12.0 fL [facility] NRBC 0.00 0.00 /100 WBCs [facility] ABSOLUTE NRBC 0.00 0.00 K/uL [facility] DIFF METHOD Auto [facility] NEUTS 77.6(H) 48.0 - 76.0 % [facility] LYMPHS 11.2(L) 18.0 - 41.0 % [facility] MONOS 8.1 4.0 - 11.0 % [facility] EOS 2.0 0.0 - 5.0 % [facility] BASOS 0.8 0.0 - 1.5 % [facility] Granulocytes, immature (%) 0.3 0.0 - 0.9 % [facility] ABSOLUTE NEUTS 2.76 1.92 - 7.60 K/uL [facility] ABSOLUTE LYMPHS 0.40(L) 0.72 - 4.10 K/uL [facility] ABSOLUTE MONOS 0.29 0.16 - 1.10 K/uL [facility] ABSOLUTE EOS 0.07 0.00 - 0.50 K/uL [facility] ABSOLUTE BASOS 0.03 0.00 - 0.15 K/uL [facility] Granulocytes, immature 0.01 0.00 - 0.09 K/uL [facility] Blood 05/23/2025 8:47 AM EDT 05/23/2025 9:02 AM EDT Jose Avila MD LAB BLOOD ORDERABLES Final Res ult [place] [id number] * Pap Test (08/16/2024 12:00 AM EST) Report [address] [address] Director Building: Wagner Francis MD [employer] OPERATOR Cytology Report FINAL DIAGNOSIS A. PAP SMEAR (THIN PREP) CE: SPECIMEN ADEQUACY: Satisfactory for evaluation; transformation zone present. INTERPRETATION: NEGATIVE FOR INTRAEPITHELIAL LESION OR MALIGNANCY. Atrophy. This specimen was analyzed by the automated ThinPrep Imaging System ([employer].) and the selected dubon were reviewed by a manager audit. Electronically Signed Out By: MICHELLE Vincent(ASCP) The Pap test is a screening test primarily for squamous cancers and precursors and has associated false-negative and false-positive results. New technologies such as liquid-based preparations may decrease but will not eliminate all false-negative results. Regular sampling and follow-up of unexplained clinical signs and symptoms are recommended to minimize false negative results. CLINICAL HISTORY Date of Last Menstrual Period: Not Provided Menstrual History: Unknown Other Clinical Conditions: Screening Pap SPECIMEN SOURCE A: PAP SMEAR (THIN PREP) CE Patient Name: BELA RAINEY : 1960 (Age: 64) Sex: F Institution: [facility] Location: [facility] Date of Collection: 08/16/2024 Date of Reported: 08/23/2024 11:12 Results to: Angelita Amador MD [facility] Final Diagnosis A. PAP SMEAR (THIN PREP) CE: SPECIMEN ADEQUACY: Satisfactory for evaluation; transformation zone present. INTERPRETATION: NEGATIVE FOR INTRAEPITHELIAL LESION OR MALIGNANCY. Atrophy. This specimen was analyzed by the automated ThinPrep Imaging System ([employer].) and the selected dubon were reviewed by a manager audit. [facility] Conversion Type (Conversion Source) 08/16/2024 08/22/2024 9:21 AM EST us Angelita Amador MD CYTOLOGY ORDERABLES Edited R esult - Final [address] [address] * ENDOSCOPY, COLON (08/16/2019 7:31 AM EST) Narrative Transcriptions Franci Villarreal MD - 08/16/2019 7:31 AM EST Patient Name: Bela Edmondsmonse Attending MD:: FRANCI VILLARREAL MD Procedure Date: 08/16/2019 7:31 AM Date of : 1960 Age: 59 Admit Type: Outpatient Gender: Female Room: [place] [address] Referring MD: Angelita Amador Exam Type: Colonoscopy Indications: Hematochezia Medications: Monitored Anesthesia Care Procedure: Informed consent was obtained from the patient after discussion of the indications, limitations,alternatives, benefits, and risks of the procedure. Risksspecifically discussed include but are not limited to medication reactions, missed lesions, bleeding, perforation, orthe need for emergent surgery. Throughout the procedure, the patient's blood pressure, pulse, end-tidal CO2, and oxygen saturations were monitored continuously. The Olympus adult variable colonoscope [id number] #7 was introduced through the anus and advanced to theterminal ileum. The colonoscopy was performed withoutdifficulty. The patient tolerated the procedure well. The qualityof the bowel preparation was good. Complications: No immediate complications. Findings: Hemorrhoids were found on perianal exam. The terminal ileum appeared normal. Retroflexion in the right colon was performed. A 2 mm polyp was found in the hepatic flexure. Thepolyp was sessile. The polyp was removed with a jumbo cold forceps. Resection and retrieval were complete. Three sessile polyps were found in the transversecolon. The polyps were 3 to 7 mm in size. These polyps were removed with a cold snare. Resection and retrieval were complete. Two sessile polyps were found in the descending colon.The polyps were 4 to 5 mm in size. These polyps wereremoved with a cold snare. Resection and retrieval werecomplete. Multiple diverticula were found in the sigmoid colonand descending colon. External hemorrhoids were found during retroflexion.The hemorrhoids were moderate. The exam was otherwise without abnormality. Impression: - Hemorrhoids found on perianal exam. - The examined portion of the ileum was normal. - One 2 mm polyp at the hepatic flexure, removed with a jumbo cold forceps. Resected and retrieved. - Three 3 to 7 mm polyps in the transverse colon,removed with a cold snare. Resected and retrieved. - Two 4 to 5 mm polyps in the descending colon, removed with a cold snare. Resected and retrieved. - Diverticulosis in the sigmoid colon and in the descending colon. - External hemorrhoids. - The examination was otherwise normal. Recommendation: - [facility] The signs and symptoms of potential delayedcomplications were discussed with the patient. Return to normal activities tomorrow. Written discharge instructionswere provided to the patient. - Await pathology results. - Repeat colonoscopy in 3 years for surveillance basedon pathology results. - Return to GI office as previously scheduled. Franci Villarreal FRANCI VILLARREAL MD 08/16/2019 8:39:13 AM This report has been signed electronically. Number of Addenda: 0 Note Initiated On: 08/16/2019 7:31 AM Procedure Code(s): --- Professional --- 72716, Colonoscopy, flexible; with removal of tumor(s), polyp(s), or other lesion(s) by snare technique 43550, 59, Colonoscopy, flexible; with biopsy, single or multiple --- Technical --- 69254, Colonoscopy, flexible; with removal of tumor(s), polyp(s), or other lesion(s) by snare technique 47522, 59, Colonoscopy, flexible; with biopsy, single or multiple CPT copyright 2018 [employer]. All rights reserved. The codes documented in this report are preliminary and upon behavioral services tech reviewmay be revised to meet current compliance requirements. [address] [place] [address] Angelita Amador MD GI PROCEDURE ORDERABLES Velia l Result from Last 3 Months or Most Recently Relevant to Health Maintenance Insurance Care Teams Supervisor [employer] Relationship Specialty Start Date End Date Angelita Amador MD [address] [place] [address] [phone] [email or web address] PCP - General Family Medicine 11/19/23 Additional Source Comments The information contained in this document represents components of the legal health record. It is not the complete legal health record.[facility]
[2025-07-20 10:15] LABS: Alanine Aminotransferase 28 U/L (0-31); Albumin Level 4.2 g/dL (3.5-5.0); Alkaline Phosphatase 87 U/L (39-117); Anion Gap 10 (12-20); Aspartate Amino Transferase 25 U/L (5-31); Blood Urea Nitrogen 30 mg/dL (9-16); Calcium 9.2 mg/dL (8.4-10.2); Carbon Dioxide 30 mmol/L (22-29); Chloride 106 mmol/L (96-108); Estimated Glomerular Filt Rate > 60; Potassium 4.6 mmol/L (3.3-5.1); Sodium 141 mmol/L (135-145); Total Protein 7.2 g/dL (6.5-8.0)
== END 2025-07-20 09:07 | disposition home or self-care (01) ==
LOC: HO.LAB 09:06
PROVIDERS: PCP Family Medicine; Visit Provider Student in an Organized Health Care Education/Training Program
DX: D86.9 Sarcoidosis, unspecified (principal)
CPT/HCPCS: 36415; 80053; 82164; 85025; 85652; 86140

== ENCOUNTER 2025-07-25 07:19 | Outpatient (AMB) | payer BC, SELFPAY ==
--- OUTSIDE RECORDS SUMMARY | 2025-07-25 07:23 | XMS_ITS ---
Author Organization Unknown ENCOUNTERS Encounter Performer Location Date Diagnosis Diagnosis Status Outpatient JAYLENE VELASQUEZ MD [address] [address] [id number] Outpatient [address] [address] [id number] [facility] *Note: Encounters from your own facility or health system may be excluded. Allergies, Adverse Reactions, Alerts Allergen Type Severity Identification Date Medications Name Date Quantity Days Supplied GPI Number
--- OUTSIDE RECORDS SUMMARY | 2025-07-25 07:23 | XMS_ITS | Encounter Summary ---
Author Organization [facility] Address [address] [place] [address] Phone Care Team Providers Care Business Analyst Sales Operations Name Role Phone Angelita Shaikh MD Primary Care Provider [phone] Angelita Shaikh MD Primary Care Provider [phone] Angelita Shaikh MD Primary Care Provider Angelita Shaikh MD Primary Care Provider [phone] Reason for Referral * Consultation (Elective) - Closed Specialty Diagnoses / Procedures Referred By Emerald castanon Referred To Contact Pulmonary Disease Diagnoses Interstitial lung disease Angelita Shaikh MD Phone: tel: fax: [email or web address] [facility] [address] [place] [address] Phone: tel: Referral ID Status Reason Start Date Expiration Date Visits Re quested Visits Authorized [id number] Closed 09/14/2019 09/14/2020 1 1 Encounter Details Date Type Department Care Team (Latest Contact Info) Description 09/14/2019 Transcribe Orders [facility] Pulmonary, Allergy and Critical Care Medicine [address] [place] [address] Jose Avila MD [address] [place] [id number] [email or web address] Interstitial lung disease (Primary Dx) Social History [...] Upcoming Encounters Date Type Department Care Team ([facility] st Contact Info) Description 11/20/2025 8:30 AM EST Office Visit CD Pulmonary, Allergy and Critical Care Medicine [address] [place] [address] Jose Avila MD [address] [place] [phone] [email or web address] Scheduled Referrals Name Type Priority Associated Diagnoses Order Schedule Ambulatory referral to [facility] Pulmonology Outpatient Referral Routine Interstitial lung disease Ordered: 09/14/2019 documented as of this encounter Visit Diagnoses Diagnosis Interstitial lung disease- Primary Postinflammatory pulmonary fibrosis documented in this encounter Care Teams Business Analyst Sales Operations Relationship Specialty Start Date End Date Angelita Shaikh MD [email or web address] PCP - General Family Medicine 08/15/19 01/04/23 Angelita Shaikh MD [email or web address] PCP - General Family Medicine 01/05/23 07/18/23 Angelita Shaikh MD PCP - General Family Medicine 07/19/23 11/18/23 Angelita Shaikh MD [address] [place] [address] [email or web address] PCP - General Family Medicine 11/19/23 documented as of this encounter Additional Source Comments The information contained in this document represents components of the legal health record. It is not the complete legal health record.[facility]
--- OUTSIDE RECORDS SUMMARY | 2025-07-25 07:23 | XMS_ITS | Encounter Summary ---
Author Organization [facility] Address [address] [place] [address] Phone Care Team Providers Care Delivery Table Operator Name Role Phone Angelita Shaikh MD Primary Care Provider Angelita Shaikh MD Primary Care Provider Angelita Shaikh MD Primary Care Provider Angelita Shaikh MD Primary Care Provider [phone] Encounter Details Date Type Department Care Team (Late st Contact Info) Description 12/03/2022 Procedure Pass [facility] [address] [place] [address] Social History Tobacco Use Types Packs/Day Years [...] Pulmonary, Allergy and Critical Care Medicine [address] [place], [place] [phone] Jose Avila MD [address] [place] [address] [email or web address] documented as of this encounter Visit Diagnoses Not on filedocumented in this encounter Care Teams Delivery Table Operator Relationship Specialty Start Date End Date Angelita Shaikh MD PCP - General Family Medicine 08/15/19 01/04/23 Angelita Shaikh MD PCP - General Family Medicine 01/05/23 07/18/23 Angelita Shaikh MD PCP - General Family Medicine 07/19/23 11/18/23 Angelita Shaikh MD [address] [place] [phone] [email or web address] PCP - General Family Medicine 11/19/23 documented as of this encounter Additional Source Comments The information contained in this document represents components of the legal health record. It is not the complete legal health record.[facility]
--- OUTSIDE RECORDS SUMMARY | 2025-07-25 07:23 | XMS_ITS | Encounter Summary ---
Author Organization [facility] Address [address] [place] [address] Phone Care Team Providers Care Provider Service Representative Name Role Phone Angelita Shaikh MD Primary [...] Expiration Date Visits Re quested Visits Authorized [id number] Closed 12/03/2022 12/03/2023 1 1 Encounter Details Date Type Department Care Team (Late st Contact Info) Description 12/03/2022 Transcribe Orders Virtual Department [address] [place] [address] Brittany Hamilton MD [address] [facility] [place] [address] Sarcoidosis, unspecified Social History Tobacco Use Types [...] CD Pulmonary, Allergy and Critical Care Medicine [address] [place] [address] Jose Avila MD [address] [place] [phone] documented as of this encounter Results * [...] unspecified documented in this encounter Care Teams Provider Service Representative Relationship Specialty Start Date End Date Angelita Shaikh MD PCP - General Family Medicine 08/15/19 01/04/23 Angelita Shaikh MD PCP - General Family Medicine 01/05/23 07/18/23 Angelita Shaikh MD PCP - General Family Medicine 07/19/23 11/18/23 Angelita Shaikh MD [address] [place] [address] PCP - General Family Medicine 11/19/23 documented as of this encounter Additional Source Comments The information contained in this document represents components of the legal health record. It is not the complete legal health record.[facility]
--- OUTSIDE RECORDS SUMMARY | 2025-07-25 07:23 | XMS_ITS | Encounter Summary ---
Author Organization [facility] Address [address] [place] [address] Phone Care Team Providers Care Agronomy Instructor Name Role Phone Angelita Shaikh MD Primary Care Provider Angelita Shaikh MD Primary Care Provider Angelita Shaikh MD Primary Care Provider Angelita Shaikh MD Primary Care Provider Encounter Details Date Type Department Care Team (Latest Contact Info) Description 08/06/2021 Transcribe Orders [facility] Phleb My [address] [address] [place] [address] [place] [address] Vitamin D deficiency (Primary Dx); Anemia due [...] Pulmonary, Allergy and Critical Care Medicine [address] [place] [address] Jose Avila MD [address] [facility] 2nd [place] [address] [email or web address] documented as of this encounter Results * 25-OH vitamin D (08/06/2021 11:48 AM EST) 25 OH VIT D (TOTAL) 30 30 - 60 ng/mL [facility] Blood 08/06/2021 11:4 8 AM EST 08/06/2021 11:51 AM EST us [place] [facility] BLOOD BKR ORDERABLES Fi nal Result Performing Organization Address City/[facility]/ZIP Co de Phone Number [address] [address] * Vitamin B12 (08/06/2021 11:48 AM EST) VITAMIN B12 602 232 - 1,245 pg/mL [facility] Blood 08/06/2021 11:4 8 AM EST 08/06/2021 11:51 AM EST [place] [facility] BLOOD BKR ORDERABLES Fi nal Result [address] [address] * (ABNORMAL) Ferritin (08/06/2021 11:48 AM EST) FERRITIN 9(L) 13 - 150 ug/L [facility] Blood 08/06/2021 11:4 8 AM EST 08/06/2021 11:51 AM EST us [place] [facility] BLOOD BKR ORDERABLES Fi nal Result [address] [address] * Folate (08/06/2021 11:48 AM EST) FOLIC ACID 11.2 4.2 - 19.9 ng/mL [facility] Blood 08/06/2021 11:4 8 AM EST 08/06/2021 11:51 AM EST us [place] [facility] BLOOD BKR ORDERABLES Fi nal Result Performing Organization Address [facility]/ZIP Co de Phone Number [address] [address] * (ABNORMAL) Iron and iron binding capacity (08/06/2021 11:48 AM EST) Pathologist [facility] IRON 35 30 - 160 ug/dL [facility] IRON BINDING CAPACITY 465(H) 228 - 428 ug/dL [facility] TRANSFERRIN SATURAT. 8(L) 15 - 50 % [facility] Blood 08/06/2021 11:4 8 AM EST 08/06/2021 11:51 AM EST us [place] [facility] BLOOD BKR ORDERABLES Fi nal Result Performing Organization Address City/[facility]/ZIP Co de Phone Number [address] [address] * (ABNORMAL) Comprehensive metabolic panel (08/06/2021 11:48 AM EST) SODIUM 138 133 - 146 mmol/L [facility] POTASSIUM 4.4 3.3 - 5.1 mmol/L [facility] CHLORIDE 101 96 - 108 mmol/L [facility] CO2 28 21 - 35 mmol/L [facility] BUN 29(H) 6 - 19 mg/dL [facility] CREATININE 0.80 0.5 - 1.5 mg/dL [facility] GLUCOSE 87 70 - 99 mg/dL [facility] ALBUMIN 4.3 3.9 - 4.8 g/dL [facility] TOTAL PROTEIN 8.3(H) 6.5 - 8.0 g/dL [facility] CALCIUM 9.9 8.4 - 10.3 mg/dL [facility] ALKALINE PHOSPHATASE 112 39 - 117 U/L [facility] TOTAL BILIRUBIN 0.2 0.0 - 1.2 mg/dL [facility] AST 29 0 - 37 U/L [facility] ALT 23 0 - 40 U/L [facility] GLOBULIN 4.0 1 - 4.8 g/dL [facility] EGFR 80 >59 mL/min/1.7 3m2 [facility] Comment:Estimated glomerular filtration rate calculated using the CKD-EPI equation. ANION GAP 13 10 - 20 mmol/L [facility] Blood 08/06/2021 11:4 8 AM EST 08/06/2021 11:51 AM EST us [place] [facility] BLOOD BKR ORDERABLES Fi nal Result [address] [address] * (ABNORMAL) CBC and differential (08/06/2021 11:48 AM EST) WBC 4.50 4.00 - 11.00 K/uL [facility] RBC 4.24 3.72 - 5.30 M/uL [facility] HGB 10.4(L) 11.4 - 15.9 g/dL [facility] HCT 34.1(L) 34.2 - 46.8 % [facility] PLT 222 140 - 430 K/uL [facility] MCV 80.4 78.0 - 97.0 fL [facility] MCH 24.5(L) 25.0 - 33.0 pg [facility] MCHC 30.5(L) 32.0 - 36.0 g/dL [facility] RDW 16.8(H) 11.0 - 16.0 % [facility] MPV 9.6 8.4 - 12.8 fl [facility] NRBC 0.00 0 /100 WBCs [facility] ABSOLUTE NRBC 0.00 0 K/uL [facility] DIFF METHOD Auto [facility] NEUTS 74.2 43.0 - 75.0 % [facility] LYMPHS 13.8(L) 18.2 - 47.4 % [facility] MONOS 8.0 4.00 - 11.00 % [facility] EOS 2.2 0.0 - 8.0 % [facility] BASOS 1.6 0.0 - 2.0 % [facility] Granulocytes, immature (%) 0.2 0.0 - 0.9 % [facility] ABSOLUTE NEUTS 3.34 1.80 - 7.70 K/uL [facility] ABSOLUTE LYMPHS 0.62(L) 1.00 - 3.10 K/uL [facility] ABSOLUTE MONOS 0.36 0.20 - 0.80 K/uL [facility] ABSOLUTE EOS 0.10 0.00 - 0.80 K/uL [facility] ABSOLUTE BASOS 0.07 0.00 - 0.09 K/uL [facility] Granulocytes, immature 0.01 0.00 - 0.05 K/uL [facility] Blood 08/06/2021 11:4 8 AM EST 08/06/2021 11:51 AM EST us [place] [facility] BLOOD BKR ORDERABLES Fi nal Result [facility] [address] [place] [address] documented in this encounter Visit Diagnoses Diagnosis Vitamin D deficiency- Primary Anemia due to vitamin B12 deficiency, unspecified B12 deficiency type Rectal bleeding Hemorrhage of rectum and anus Personal history of colonic polyps documented in this encounter Care Teams Agronomy Instructor Relationship Specialty Start Date End Date Angelita Shaikh MD [email or web address] PCP - General Family Medicine 08/15/19 01/04/23 Angelita Shaikh MD [email or web address] PCP - General Family Medicine 01/05/23 07/18/23 Angelita Shaikh MD PCP - General Family Medicine 07/19/23 11/18/23 Angelita Shaikh MD [address] [place] [address] [email or web address] PCP - General Family Medicine 11/19/23 documented as of this encounter Additional Source Comments The information contained in this document represents components of the legal health record. It is not the complete legal health record.[facility]
--- OUTSIDE RECORDS SUMMARY | 2025-07-25 07:23 | XMS_ITS | Clinical Summary ---
Author Organization [facility] Address [address] [place] [address] Phone Care Team Providers Care Web Application Dev Specialist Name Role Phone Angelita Shaikh MD Primary Care Provider [phone] Allergies Active Allergy Reactions Criticality Noted Date [...] nasal steroids. Reevaluate when able to have liye-am-zyvk exam. Assessment & Plan (11/14/2019 12:40 PM EST): Severe inflammatory appearing rhinitis. Differential includes allergic or nonallergic rhinitis but also sarcoidosis. Recommend continued nasal saline. Would start moderate dose nasal steroids. Prescription for Flonase provided. Depending on response, and additional work-up, could consider further treatment as indicated. Encounters Date Type Department Care Team Description 05/28/2025 Telephone CD Pulmonary, Allergy and Critical Care Medicine [address] [place] [phone] Darcy Grubbs Fluticasone CoverMyMeds 05/23/2025 8:46 AM EDT - 05/23/2025 11:59 PM EDT Hospital Encounter [facility] [address] [address] Jose Avila MD Discharge Disposition: Home or Self Care 05/23/2025 Telephone CD Pulmonary, Allergy and Critical Care Medicine [address] [place] [address] Darcy Grubbsmiclisa 180 Pa request from CoverMyMeds; Medication Prior Authorization (budesonide (PULMICORT FLEXHALER) 180 mcg/actuation inhaler PA) 05/22/2025 8:30 AM EDT Office Visit CD Pulmonary, Allergy and Critical Care Medicine [address] [place] [address] Jose Avila MD Vitamin D deficiency, unspecified [...] Pulmonary, Allergy and Critical Care Medicine [address] [place] [address] Jose Avila MD [address] [address] [email or web address] Health Maintenance Due Date Last Done Comments DEPRESSION SCREENING 1973 HEPATITIS C SCREENING 1979 COLOGUARD 2006 FIT TEST 2006 FOBT 2006 SIGMOIDOSCOPY 2006 VIRTUAL COLONOSCOPY 2006 RSV VACCINE (1 - Risk 50-74 years 1-dose series) 2011 LIPID PANEL 03/12/2013 03/12/2008, 04/25/2004 INFLUENZA VACCINE (#1) 2025 , 06/18/2023, 07/10/2022, Additional history exists COVID-19 VACCINE (2024- season) 2025 06/16/2024, 08/07/2023, 08/07/2023, Additional history [...] DIFFERENTIAL Routine 05/23/2025 8:47 AM EDT Sarcoidosis T-CELL SHORT PANEL Routine 05/23/2025 8: 47 AM EDT Sarcoidosis COMPREHENSIVE METABOLIC PANEL (CMP) Routine 05/23/2025 8:47 AM EDT Sarcoidosis INTERLEUKIN 2 RECEPTOR Routine 8:47 AM EDT Sarcoidosis PAP TEST Routine 08/16/2024 12:00 AM EST ENDOSCOPY, COLON 08/16/2019 7:31 AM EST from Last 3 Months or Most Recently Relevant to Health Maintenance Results * (ABNORMAL) INTERLEUKIN 2 RECEPTOR (05/23/2025 8:47 AM EDT) IL-2 receptor alpha soluble 1,166(H) <=959 pg/mL [facility] Comment: (NOTE) ADDITIONAL INFORMATION This test was developed and its performance characteristics determined by [facility] in a manner consistent with CLIA requirements. This test has not been cleared or approved by the U.S. Food and Drug Administration. Blood 05/23/2025 8:47 AM EDT 05/23/2025 9:02 AM EDT us Jose Avila MD LAB BLOOD ORDERABLES Final Res ult Performing Organization Address City/[facility]/ZIP Co de Phone Number [facility] SU[facility]IOR [address] [place] [address] * (ABNORMAL) CD4 T-cell count (05/23/2025 8:47 AM EDT) Pathologist [facility] CD45 LYMPH COUNT 0.42(L) 0.82 - 2.84 thou/mcL [facility] DR %CD3 (T CELLS) 62 58 - 86 % [facility]/PATH [address] DR %CD4 (HELPER CELLS) 38 32 - 64 % [facility]/PATH SUPERIOR DR %CD8 (SUPPR CELLS) 24 8 - 40 % [facility]/PATH SUPERIOR DR CD3 (T CELLS) 259(L) 550 - 2,202 cells/mc L [facility]/PATH [address] DR CD4 (HELPER CELLS) 159(L) 365 - 1,437 cells/mc L [facility]/PATH [address] DR CD8 (SUPPR CELLS) 100 80 - 846 cells/mc L [facility]/PATH [address]IOR DR H/S RATIO 1.6 >=0.9 [facility] Comment: (NOTE) ADDITIONAL INFORMATION This test was developed using an analyte specific reagent. Its performance characteristics were determined by [facility] in a manner consistent with CLIA requirements. This test has not been cleared or approved by the U.S. Food and Drug Administration. CD4 COUNT COMMENT Test component not applicable or not reported. [facility] Blood 05/23/2025 8:47 AM EDT 05/23/2025 9:02 AM EDT Jose Avila MD LAB FLOW CYTOMETRY ORDERABLES Final Result Performing Organization Address City/[facility]/ZIP Co de Phone Number [facility] [address] [place] [address] * (ABNORMAL) Comprehensive metabolic panel (05/23/2025 8:47 AM EDT) Pathologist [facility] SODIUM 138 133 - 146 mmol/L [facility] POTASSIUM 4.1 3.3 - 5.1 mmol/L [facility] CHLORIDE 102 96 - 108 mmol/L [facility] CO2 26 21 - 35 mmol/L [facility] BUN 22(H) 6 - 19 mg/dL [facility] CREATININE 0.60 0.5 - 1.5 mg/dL [facility] GLUCOSE 96 70 - 99 mg/dL [facility] ALBUMIN 4.1 3.9 - 4.8 g/dL [facility] TOTAL PROTEIN 7.1 6.5 - 8.0 g/dL [facility] CALCIUM 9.6 8.4 - 10.3 mg/dL [facility] ALKALINE PHOSPHATASE 101 39 - 117 U/L [facility] TOTAL BILIRUBIN <0.2 0.0 - 1.2 mg/dL [facility] AST 38(H) 0 - 37 U/L [facility] ALT 60(H) 0 - 40 U/L [facility] GLOBULIN 3.0 1 - 4.8 g/dL [facility] EGFR 100 >59 mL/min/1.7 3m2 [facility] Comment:Estimated glomerular filtration rate calculated using the CKD-EPI refit equation. ANION GAP 14 10 - 20 mmol/L [facility] Blood 05/23/2025 8:47 AM EDT 05/23/2025 9:02 AM EDT Jose Avila MD LAB BLOOD BKR ORDERABLES Final Result [address] [address] * 1-25-OH vitamin D (05/23/2025 8:47 AM EDT) Pathologist [facility] 1,25 (OH) 2 Vitamin D3 45 18 - 78 pg/mL [facility] Comment: (NOTE) ADDITIONAL INFORMATION This test was developed and its performance characteristics determined by [facility] in a manner consistent with CLIA requirements. This test has not been cleared or approved by the U.S. Food and Drug Administration. Blood 05/23/2025 8:47 AM EDT 05/23/2025 9:02 AM EDT Jose Avila MD LAB BLOOD ORDERABLES Final Res ult [facility] [address] [place] [address] * 25-OH vitamin D (05/23/2025 8:47 AM EDT) Pathologist [facility] 25 [place] VIT D (TOTAL) 35 30 - 60 ng/mL [facility] Blood 05/23/2025 8:47 AM EDT 05/23/2025 9:02 AM EDT Jose Avila MD LAB BLOOD BKR ORDERABLES Final Result Performing Organization Address City/[facility] Co de Phone Number [facility] [address] [place] [address] * (ABNORMAL) CBC and differential (05/23/2025 8:47 AM EDT) [facility] WBC 3.56(L) 4.00 - 11.00 K/uL [facility] RBC 3.88(L) 4.00 - 5.20 M/uL [facility] HGB 11.6(L) 12.0 - 16.0 g/dL [facility] HCT 35.6(L) 36.0 - 46.0 % [facility] PLT 169 150 - 450 K/uL [facility] MCV 91.8 80.0 - 100.0 fL [facility] MCH 29.9 27.0 - 31.0 pg [facility] MCHC 32.6 32.0 - 36.0 g/dL [facility] RDW 14.1 11.5 - 14.5 % [facility] MPV 9.4 8.4 - 12.0 fL [facility] NRBC 0.00 0.00 /100 WBCs [facility] ABSOLUTE NRBC 0.00 0.00 K/uL [facility] DIFF METHOD Auto [facility] NEUTS 77.6(H) 48.0 - 76.0 % [facility] LYMPHS 11.2(L) 18.0 - 41.0 % [facility] MONOS 8.1 4.0 - 11.0 % [facility] EOS 2.0 0.0 - 5.0 % [facility] BASOS 0.8 0.0 - 1.5 % [facility] Granulocytes, immature (%) 0.3 0.0 - 0.9 % [facility] ABSOLUTE NEUTS 2.76 1.92 - 7.60 K/uL [facility] ABSOLUTE LYMPHS 0.40(L) 0.72 - 4.10 K/uL [facility] ABSOLUTE MONOS 0.29 0.16 - 1.10 K/uL [facility] ABSOLUTE EOS 0.07 0.00 - 0.50 K/uL [facility] ABSOLUTE BASOS 0.03 0.00 - 0.15 K/uL [facility] Granulocytes, immature 0.01 0.00 - 0.09 K/uL [facility] Blood 05/23/2025 8:47 AM EDT 05/23/2025 9:02 AM EDT Jose Avila MD LAB BLOOD BKR ORDERABLES Final Result Performing Organization Address City/State/[facility] Co de Phone Number [address] [address] * Pap Test (08/16/2024 12:00 AM EST) Report [address] [address] Certified Medical Dosimetrist: Wagner Francis MD PACK OUT OPERATOR Cytology Report FINAL DIAGNOSIS A. PAP SMEAR (THIN PREP) CE: SPECIMEN ADEQUACY: Satisfactory for evaluation; transformation zone present. INTERPRETATION: NEGATIVE FOR INTRAEPITHELIAL LESION OR MALIGNANCY. Atrophy. This specimen was analyzed by the automated ThinPrep Imaging System ([employer].) and the selected dubon were reviewed by a guide setter. Electronically Signed Out By: MICHELLE Vincent(ASCP) The [...] SMEAR (THIN PREP) CE Patient Name: BELA MUELLER : 1960 (Age: 64) Sex: F Institution: [facility] Location: [facility] Date of Collection: 08/16/2024 Date of Reported: 08/23/2024 11:12 Results to: Angelita Shaikh MD [facility] Final Diagnosis A. PAP SMEAR (THIN PREP) CE: SPECIMEN ADEQUACY: Satisfactory for evaluation; transformation zone present. INTERPRETATION: NEGATIVE FOR INTRAEPITHELIAL LESION OR MALIGNANCY. Atrophy. This specimen was analyzed by the automated ThinPrep Imaging System ([employer].) and the selected dubon were reviewed by a guide setter. [facility] Conversion Type (Conversion Source) 08/16/2024 08/22/2024 9:21 AM EST us Angelita Shaikh MD CYTOLOGY ORDERABLES Edited R esult - Final [facility] [address] [place], [place] [id number] * ENDOSCOPY, COLON (08/16/2019 7:31 AM EST) Narrative Transcriptions Franci Sagastume MD - 08/16/2019 7:31 AM EST Patient Name: Bela Gillespievalerie Attending MD:: FRANCI SAGASTUME MD Procedure Date: 08/16/2019 7:31 AM Date of : 1960 Age: 59 Admit Type: Outpatient Gender: Female Room: [place] [address] Referring MD: Angelita Shaikh Exam Type: Colonoscopy Indications: Hematochezia Medications: Monitored [...] monitored continuously. The Olympus adult variable colonoscope [id number] #7 was introduced through the anus and [...] - Patient has a contact number [facility]. The signs and symptoms of potential delayedcomplications were discussed with the patient. Return to normal activities tomorrow. Written discharge instructionswere provided to the patient. - Await pathology results. - Repeat colonoscopy in 3 years for surveillance basedon pathology results. - Return to GI office as previously scheduled. Franci Sagastume FRANCI SAGASTUME MD 08/16/2019 8:39:13 AM This report has been signed electronically. Number of Addenda: 0 Note Initiated On: 08/16/2019 7:31 AM Procedure Code(s): --- Professional --- 73456, Colonoscopy, flexible; with removal of tumor(s), polyp(s), or other lesion(s) by snare technique 58640, 59, Colonoscopy, flexible; with biopsy, single or multiple --- Technical --- 66798, Colonoscopy, flexible; with removal of tumor(s), polyp(s), or other lesion(s) by snare technique 67541, 59, Colonoscopy, flexible; with biopsy, single or multiple CPT copyright 2018 [employer]. All rights reserved. The codes documented in this report are preliminary and upon soil conservation technician reviewmay be revised to meet current compliance requirements. [address] [place] [address] Angelita Shaikh MD GI PROCEDURE ORDERABLES Velia l Result from Last 3 Months or Most Recently Relevant to Health Maintenance Insurance Care Teams Web Application Dev Specialist Relationship Specialty Start Date End Date Angelita Shaikh MD [address] [place] [address] [email or web address] PCP - General Family Medicine 11/19/23 Additional Source Comments The information contained in this document represents components of the legal health record. It is not the complete legal health record.[facility]
--- OUTSIDE RECORDS SUMMARY | 2025-07-25 07:23 | XMS_ITS | Encounter Summary ---
Author Organization [facility] Address [address] [place] [address] Phone Care Team Providers Care Spin Table Operator Name Role Phone Angelita Shaikh MD Primary Care Provider [phone] Angelita Shaikh MD Primary Care Provider Angelita [...] CONTRAST Ashvin Villarreal MD Phone: tel: fax: [email or web address]:[email or web address] [address] [address] Phone: tel: Referral ID Status Reason Start Date Expiration Date Visits Re quested Visits Authorized [id number] Closed 10/26/2022 11/25/2022 1 1 Encounter Details Date Type Department Care Team (Latest Contact Info) Description 10/05/2022 Transcribe Orders Virtual Department 30 [place] [address] Ashvin Villarreal MD 10 [facility] 2 [place] [address] [email or web address] Atrophic gastritis, presence of bleeding unspecified [...] Pulmonary, Allergy and Critical Care Medicine 10 [facility] [place] [address] Jose Avila MD [address] [place] [address] [place] [address] [email or web address] documented as of [...] upper abdomen from chest CT on 08/15/2019. Complex Director examples include a 1.4 cm short axis [...] of the lung bases, present dating back [id number], as well as chronic subpleural calcification and [...] the upper abdomen from chest CT on 08/15/2019.Complex Director examples include a 1.4 cm short axis [...] type documented in this encounter Care Teams Spin Table Operator Relationship Specialty Start Date End Date Angelita Shaikh MD PCP - General Family Medicine 08/15/19 01/04/23 Angelita Shaikh MD [email or web address] PCP - General Family Medicine 01/05/23 07/18/23 Angelita Shaikh MD PCP - General Family Medicine 07/19/23 11/18/23 Angelita Shaikh MD [address] [place] [address] [email or web address] PCP - General Family Medicine 11/19/23 documented as of this encounter Additional Source Comments The information contained in this document represents components of the legal health record. It is not the complete legal health record.[facility]
--- OUTSIDE RECORDS SUMMARY | 2025-07-25 07:23 | XMS_ITS | Encounter Summary ---
Author Organization [facility] Address [address] [place] [address] Phone Care Team Providers Care Asbestos Surveyor Name Role Phone Angelita Shaikh MD Primary Care Provider Angelita Shaikh MD Primary Care Provider Angelita Shaikh MD Primary Care Provider Angelita Shaikh MD Primary Care Provider Encounter Details Date Type Department Care Team (Late Contact Info) Description 02/03/2022 Procedure Pass [facility] Endoscopy Admitting Dept Virtual Department [address] [place] [address] Social History Tobacco Use Types Packs/Day Years [...] Upcoming Encounters Date Type Department Care Team ([facility] Contact Info) Description 11/20/2025 8:30 AM EST Office Visit [facility] Pulmonary, Allergy and Critical Care Medicine 10 [place] [address] Jose Avila MD [address] [place] [address] [email or web address] documented as of this encounter Visit Diagnoses Not on filedocumented in this encounter Care Teams Asbestos Surveyor Relationship Specialty Start Date End Date Angelita Shaikh MD PCP - General Family Medicine 08/15/19 01/04/23 Angelita Shaikh MD PCP - General Family Medicine 01/05/23 07/18/23 Angelita Shaikh MD PCP - General Family Medicine 07/19/23 11/18/23 Angelita Shaikh MD [address] [place] [address] [email or web address] PCP - General Family Medicine 11/19/23 documented as of this encounter Additional Source Comments The information contained in this document represents components of the legal health record. It is not the complete legal health record.[facility]
--- OUTSIDE RECORDS SUMMARY | 2025-07-25 07:23 | XMS_ITS | Encounter Summary ---
Author Organization [facility] Address [address] [place] [address] Phone Care Team Providers Care Printed Circuit Boards Beveler Name Role Phone Sergei Jay MD Primary Care Provider [phone] Angelita Shaikh MD Primary Care Provider [phone] Angelita Shaikh MD Primary Care Provider Angelita Shaikh MD Primary Care Provider Angelita Shaikh MD Primary Care Provider [phone] Reason for Referral * MRI/CAT Scan - Closed Specialty Diagnoses / Procedures Referred By Contsoheila t Referred To Contact Radiology Diagnoses Interstitial pulmonary disease, unspecified Procedures CT Chest Angelita Shaikh MD Phone: tel: fax: [email or web address] Referral ID Status Reason Start Date Expiration Date Visits Re quested Visits Authorized [id number] Closed 07/26/2019 08/25/2019 1 1 Encounter Details Date Type Department Care Team (Latest Contact Info) Description 07/27/2019 Transcribe Orders [facility] Department [address] [place] [address] Angelita Shaikh MD [address] [place] [address] [phone] [email or web address] Interstitial pulmonary disease, unspecified (Primary [...] Description 11/20/2025 8:30 AM EST Office Visit [facility] Pulmonary, Allergy and Critical Care Medicine [address] [place] [address] Jose Avila MD [address] [place] [address] [email or web address] documented as of this encounter Results * CT CHEST WITH CONTRAST (08/15/2019 8:10 AM EST) Anatomical Region Laterality Modality Chest Computed Tomogra phy 08/15/2019 8:45 AM EST Impressions 08/15/2019 8:58 AM EST 1. Probable thyroid nodules. 2. Prevascular lymphadenopathy. 3. Bilateral bronchovascular and interstitial densities. Question underlying nodule in the right upper lobe. Follow-up recommended. TOTAL CTDIvol: 6.1 mGy POS - [id number] Narrative 08/15/2019 8:58 AM EST CLINICAL HISTORY: Chronic cough. Chronic interstitial changes. Previous breast cancer. TECHNIQUE: CT images of the chest after administration of IV contrast. Multiplanar reformatted images generated. Automated exposure control utilized. COMPARISON: 07/20/2019 chest radiograph report from [facility] FINDINGS: The left lobe of the thyroid [...] controlutilized. COMPARISON: 07/20/2019 chest radiograph report from [facility] FINDINGS: The left lobe of the thyroid [...] recommended. TOTAL CTDIvol: 6.1 mGy POS - [id number] Angelita Shaikh MD IM CT CHEST Final Result documented in this encounter Visit Diagnoses Diagnosis Interstitial pulmonary disease, unspecified- Primary Interstitial pulmonary disease, unspecified documented in this encounter Care Teams Printed Circuit Boards Beveler Relationship Specialty Start Date End Date Sergei Jay MD [address] [place] [address] [email or web address] PCP - General 07/06/17 08/14/19 Angelita Shaikh MD [address] [place] [address] PCP - General Family Medicine 08/15/19 01/04/23 Angelita Shaikh MD [address] [place] [address] PCP - General Family Medicine 01/05/23 07/18/23 Angelita Shaikh MD [address] [place] [address] PCP - General Family Medicine 07/19/23 11/18/23 Angelita Shaikh MD [address] [place] [address] PCP - General Family Medicine 11/19/23 documented as of this encounter Additional Source Comments The information contained in this document represents components of the legal health record. It is not the complete legal health record.[facility]
--- OUTSIDE RECORDS SUMMARY | 2025-07-25 07:23 | XMS_ITS | Encounter Summary ---
Author Organization [facility] Address [address] [place] [address] Phone Care Team Providers Care Exterior Designer Name Role Phone Angelita Shaikh MD Primary Care Provider Angelita Shaikh MD Primary Care Provider [phone] Angelita Shaikh MD Primary Care Provider Angelita Shaikh MD Primary Care Provider Encounter Details Date Type Department Care Team (Late Contact Info) Description 03/17/2022 Procedure Pass [facility], Ct Scan - [address] [address] Social History Tobacco Use Types Packs/Day Years [...] and Critical Care Medicine 10 [place] [address] Jose Avila MD [address] [place] [phone] [email or web address] documented as of this encounter Visit Diagnoses Not on filedocumented in this encounter Care Teams Exterior Designer Relationship Specialty Start Date End Date Angelita Shaikh MD PCP - General Family Medicine 08/15/19 01/04/23 Angelita Shaikh MD PCP - General Family Medicine 01/05/23 07/18/23 Angelita Shaikh MD PCP - General Family Medicine 07/19/23 11/18/23 Angelita Shaikh MD [address] [place] [address] [email or web address] PCP - General Family Medicine 11/19/23 documented as of this encounter Additional Source Comments The information contained in this document represents components of the legal health record. It is not the complete legal health record.[facility]
--- OUTSIDE RECORDS SUMMARY | 2025-07-25 07:23 | XMS_ITS | Encounter Summary ---
Author Organization [facility] Address [address] [place] [address] Phone Care Team Providers Care Print Designer Name Role Phone Angelita Shaikh MD Primary Care Provider [phone] Angelita Shaikh MD Primary Care Provider Angelita Shaikh MD Primary Care Provider Angelita Shaikh MD Primary Care Provider Encounter Details Date Type Department Care Team (Late st Contact Info) Description 06/02/2022 Transcribe Orders [facility] [address] [place] [address] Jose Avila MD [address] [place] [address] [email or web address] Social History Tobacco Use Types Packs/Day Years [...] Pulmonary, Allergy and Critical Care Medicine 10 [place] [address] Jose Avila MD [address] [address] documented as of this encounter Visit Diagnoses Not on filedocumented in this encounter Care Teams Print Designer Relationship Specialty Start Date End Date Angelita Shaikh MD PCP - General Family Medicine 08/15/19 01/04/23 Angelita Shaikh MD PCP - General Family Medicine 01/05/23 07/18/23 Angelita Shaikh MD PCP - General Family Medicine 07/19/23 11/18/23 Angelita Shaikh MD [address] [place] [phone] PCP - General Family Medicine 11/19/23 documented as of this encounter Additional Source Comments The information contained in this document represents components of the legal health record. It is not the complete legal health record.[facility]
--- OUTSIDE RECORDS SUMMARY | 2025-07-25 07:23 | XMS_ITS | Encounter Summary ---
Author Organization [facility] Address [address] [place] [phone] Phone Care Team Providers Care Uniform Maker Name Role Phone Angelita Shaikh MD Primary Care Provider Angelita Shaikh MD Primary Care Provider [phone] Angelita Shaikh MD Primary Care Provider Angelita Shaikh MD Primary Care Provider Encounter Details Date Type Department Care Team (Latest Contact Info) Description 03/03/2022 Transcribe Orders Virtual Department [address] [place] [address] Ashvin Villarreal MD [address] [place] [phone] [email or web address] Anemia due to blood loss (Primary [...] Pulmonary, Allergy and Critical Care Medicine [address] [facility] [address] Jose Avila MD [address] [place] [phone] documented as of this encounter Results * XR ABDOMEN 1 VIEW (03/05/2022 3:50 PM EDT) Anatomical Region Laterality Modality Abdomen Computed Radiogr aphy 03/06/2022 10:3 6 AM EDT Impressions 03/06/2022 10:38 AM EDT Nonspecific left upper quadrant calcifications which could be correlated with any history of chronic pancreatitis. No grossly distended bowel loops or large urinary calculi identified on supine imaging. POS - [id number] Narrative 03/06/2022 10:38 AM EDT COMPARISON: None [...] calculi identified on supine imaging. POS - [id number] Ashvin Villarreal MD IMG XR ABDOMEN Final Result documented in this encounter Visit Diagnoses Diagnosis Anemia due to blood loss- Primary Acute posthemorrhagic anemia Vitamin B12 deficiency Other B-complex deficiencies Anemia due to blood loss Acute posthemorrhagic anemia Vitamin B12 deficiency Other B-complex deficiencies documented in this encounter Care Teams Uniform Maker Relationship Specialty Start Date End Date Angelita Shaikh MD PCP - General Family Medicine 08/15/19 01/04/23 Angelita Shaikh MD PCP - General Family Medicine 01/05/23 07/18/23 Angelita Shaikh MD PCP - General Family Medicine 07/19/23 11/18/23 Angelita Shaikh MD [address] [place] [phone] [email or web address] PCP - General Family Medicine 11/19/23 documented as of this encounter Additional Source Comments The information contained in this document represents components of the legal health record. It is not the complete legal health record.[facility]
--- OUTSIDE RECORDS SUMMARY | 2025-07-25 07:23 | XMS_ITS | Encounter Summary ---
Author Organization [facility] Address [address] [place] [address] Phone Care Team Providers Care Revenue Manager Name Role Phone Angelita Shaikh MD Primary Care Provider [phone] Angelita Shaikh MD Primary Care Provider [phone] Angelita Shaikh MD Primary Care Provider Angelita Shaikh MD Primary Care Provider Encounter Details Date Type Department Care Team (Late Contact Info) Description 08/16/2019 Procedure Pass [facility] Endoscopy Admitting Dept Virtual Department [address] [place] [phone] Social History Tobacco Use Types Packs/Day Years [...] Upcoming Encounters Date Type Department Care Team ([facility] Contact Info) Description 11/20/2025 8:30 AM EST Office Visit [facility] Pulmonary, Allergy and Critical Care Medicine [address] [place], [place] [id number] Jose Avila MD [address] [address] [email or web address] documented as of this encounter Visit Diagnoses Not on filedocumented in this encounter Care Teams Revenue Manager Relationship Specialty Start Date End Date Angelita Shaikh MD [email or web address] PCP - General Family Medicine 08/15/19 01/04/23 Angelita Shaikh MD [email or web address] PCP - General Family Medicine 01/05/23 07/18/23 Angelita Shaikh MD PCP - General Family Medicine 07/19/23 11/18/23 Angelita Shaikh MD [address] [place] [phone] [email or web address] PCP - General Family Medicine 11/19/23 documented as of this encounter Additional Source Comments The information contained in this document represents components of the legal health record. It is not the complete legal health record.[facility]
--- OUTSIDE RECORDS SUMMARY | 2025-07-25 07:23 | XMS_ITS | Encounter Summary ---
Author Organization [facility] Address [address] [place] [phone] Phone Care Team Providers Care Cso Name Role Phone Angelita Shaikh MD Primary Care Provider Angelita Shaikh MD Primary Care Provider Angelita Shaikh MD Primary Care Provider Angelita Shaikh MD Primary Care Provider Encounter Details Date Type Department Care Team (Late Contact Info) Description 10/05/2022 Procedure Pass [facility], Ct Scan - [address] [address] Social History Tobacco Use Types Packs/Day Years [...] Pulmonary, Allergy and Critical Care Medicine [address] [place] [address] Jose Avila MD [address] [place] [phone] [email or web address] documented as of this encounter Visit Diagnoses Not on filedocumented in this encounter Care Teams Cso Relationship Specialty Start Date End Date Angelita Shaikh MD PCP - General Family Medicine 08/15/19 01/04/23 Angelita Shaikh MD PCP - General Family Medicine 01/05/23 07/18/23 Angelita Shaikh MD PCP - General Family Medicine 07/19/23 11/18/23 Angelita Shaikh MD [address] [place] [phone] [email or web address] PCP - General Family Medicine 11/19/23 documented as of this encounter Additional Source Comments The information contained in this document represents components of the legal health record. It is not the complete legal health record.[facility]
--- NOTE | 2025-07-25 07:43 | A.OFFVIS_ITS ---
Vital Signs 07/25/25 07:49 Height 5 ft 5 in Weight 222 lb 3.615 oz BMI 37.0 BP 122/80 Blood Pressure Location Rt brachial Position Sitting Pulse 68 Pulse Source Pulse Oximeter Pulse Oximetry (%) 98 Oxygen Delivery Method Room Air Intake Visit Reasons: Sarcoid Intake Note: Patient presents for Sarcoid follow up. Allergies bee pollen Allergy (Unknown, Verified 07/25/25 07:47) unknown lisinopril Allergy (Unknown, Verified 07/25/25 07:47) unknown Medication List - Last Reconciled 07/25/25 by Maribell Velasco MD albuterol sulfate 90 mcg/actuation (ProAir HFA) 2 puffs inhalation Q6H PRN atovaquone mg PO budesonide 180 mcg/actuation (Pulmicort Flexhaler) 1 inh inhalation BID PRN fluticasone propionate 50 mcg/actuation (Allergy Relief (fluticasone)) 1 spray intranasal DAILY folic acid 1 mg PO DAILY hydrochlorothiazide 12.5 mg PO DAILY hydroxychloroquine 200 mg PO BID methotrexate sodium 17.5 mg (7 x 2.5 mg) PO QWEEK 90 days naproxen 500 mg PO .QD PRN HPI Comments Details: Patient is a 65 year old female with hypertension and sarcoidosis here today for follow up Interval History: Patient last seen 02/23/25 with me - On Hydroxychloroquine 200mg bid, methotrexate 17.5mg weekly, and folic acid 1mg daily - Today she continues to feel well. Her methotrexate was decreased from 8 pills weekly to 7 pills weekly by another physician. Unsure of why. ?Transaminitis - Despite the decrease patient continues to do well. No further erythema nodosum nodules. - Denies shortness of breath Today - On Hydroxychloroquine 200mg bid, methotrexate 17.5mg weekly, and folic acid 1 mg daily - No new complaints - No SOB - Had eye surgery and because of that the test lead wanted to continue the methotrexate due to risk of a flare with surgery Rheumatologic History: Initial history: This is a 62-year-old female with a past medical history of sarcoidosis who presents for evaluation of Sarcoidosis. The condition started in 2019 with some shortness of breath, she was found to have multiple nasal lesions. Nasal biopsy showed granulomatous disease. She was also found to have lupus pernio. She was evaluated by lean specialist Dr. Newton and started on hydroxychloroquine as well as steroid nasal sprays with significant improvement. Her loop her spirit new lesions have resolved. Chest CT showed mediastinal adenopathy and some interstitial changes. Patient denies any significant shortness of breath. Stated she walked an hour and a half a few weeks ago. In November of 2021 she started having left eye blurry vision. She was initially st arted on steroid eyedrops without significant improvement, she was then evaluated by Dr. Jose Yeh & was started are on another course of steroid eyedrops and she was recently started on methotrexate in August of 2022. She is currently on methotrexate 6 tabs weekly and hydroxychloroquine has been discontinued. She never took oral steroids. Today patient feels well overall except for left eye blurry vision. She states that her left eye symptoms have stabilized and might be starting to improve. Current Rheumatology Medication(s): Hydroxychloroquine 200 mg twice a day Methotrexate 17.5 mg weekly Folic acid 1 mg daily [facility] Medical History Breast cancer Adenomatous colon polyp Benign essential hypertension Sarcoidosis Iron (Fe) deficiency anemia Atrophic gastritis Rhinorrhea Morbid obesity Vitamin B12 deficiency Surgical History (Updated 07/25/25 @ 07:49 by Francisca Rivera [facility]) H/O eye surgery Hx of tubal ligation S/P mastectomy, bilateral History of appendectomy Family History Mother Autoimmune hemolytic anemia Sister Myocardial infarct Maternal Grandfather Myocardial infarct Social History Household Members: Spouse Housing: House Alcohol intake: current Alcohol intake frequency: a few times a week Alcohol type: beer and wine Patient Tobacco Use Status: Never used Tobacco e-Cigarette/Vaping Use: Never Used service: No Current occupational status: employed 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 [employer] Review of Systems Narrative Review of Systems Constitutional: Denies fever, chills, weight loss ENT: Denies vision changes, eye pain or eye redness, dental caries, dry mouth GI: Denies nausea, vomiting, diarrhea, abdominal pain, change in BM Pulm: Denies SOB, TSANG, hemoptysis, wheezing Cards: Denies chest pain, palpitations Skin: Denies Raynaud's, rash, nail changes, photosensitivity, INVESTIGATIVE REPORTER: Denies headaches, weakness, paresthesias, recurrent falls MSK: as per HPI All other systems reviewed and are unremarkable except noted above Physical Exam Exam Exam: Vital signs reviewed Physical Examination CONSTITUITIONAL Patient alert and cooperative. Well appearing and in no apparent painful distress MSK Hands * Right Hand: Able to make a fist. No swelling or tenderness to palpation of the MCPs, PIPs or DIPs. * Left Hand: Able to make a fist. No swelling or tenderness to palpation of the MCPs, PIPs or DIPs. Wrists * Right Wrist: Full ROM to flexion and extension. No swelling or TTP * Left Wrist: Full ROM to flexion and extension. No swelling or TTP Elbows * Right Elbow: Full ROM. No swelling or TTP. No TTP of the medial epicondyle. No TTP of the lateral epicondyle * Left Elbow: Full ROM. No swelling or TTP. No TTP of the medial epicondyle. No TTP of the lateral epicondyle Shoulders * Right shoulder: Full ROM. No swelling noted. No TTP of the AC joint. No TTP of the subacromial bursa. No TTP of the posterior shoulder * Left shoulder: Full ROM. No swelling noted. No TTP of the AC joint. No TTP of the subacromial bursa. No TTP of the posterior shoulder Knees * Right knee: Good ROM. No swelling noted. No TTP of the knee joint line. No TTP of pes anserine bursa * Left knee: Good ROM. No swelling noted. No TTP of the knee joint line. No TTP of pes anserine bursa. * Crepitations felt bilaterally Ankles * Right ankle: Good ankle dorsiflexion and plantar flexion. No swelling. No TTP of the ankle joint * Left ankle: Good ankle dorsiflexion and plantar flexion. No swelling. No TTP of the ankle joint Feet * Right foot: Negative squeeze test * Left foot: Negative squeeze test Tender points? * No tenderness to palpation of the bilateral trapezius, supraspinatus, anterior costochondral junctions, bilateral suboccipital muscle insertions SKIN No rashes No Erythema nodosum calcification noted to dorsum of the left foot Results Reviewed Results Reviewed: Laboratory Tests 02/16/25 07/20/25 14:30 09:21 WBC 3.2 L RBC 3.97 L Hgb 11.8 L Hct 36.7 L Plt Count 160 ESR 16 Sodium 141 Potassium 4.6 Chloride 106 Carbon Dioxide 30 H BUN 30 H Creatinine 0.71 AST 25 ALT 28 C-Reactive Protein < 0.04 Angiotensin Convert Enz 46 44 Assessment & Plan Assessment & Plan (1) Sarcoidosis: Comment: Diagnosed in 2019 with nasal lesions, biopsy showing granulomatous inflammation Bilateral hilar adenopathy and interstitial changes on chest CT Iritis 11/2021 lupus pernio Lymphopenia Erythema nodosum HCQ started in 2018, then switched to methotrexate 08/2022 due to uveitis HCQ restarted in 05/2023 due to erythema nodosum effective Code(s): D86.9 - Sarcoidosis, unspecified Category: Medical Plan: #Sarcoidosis Patient is a 65-year-old female with sarcoidosis here today for follow up. Currently in remission with respect to her sarcoidosis. No pulmonary findings. And her erythema nodosum has resolved. Osvaldo level has normalized. Inflammatory markers also normalized. Normalized AST/ALT on the current dose of methotrexate Will continue. Plan - Methotrexate 17.5mg weekly PO - Folic acid 1 mg daily - Hydroxychloroquine 200mg bid - Follow up ophthalmology re iritis and methotrexate dosing - RTC 5 months - Labs before visit: CBC, CMP, ESR, CRP, OSVALDO level (2) Bilateral primary osteoarthritis of knee: Code(s): M17.0 - Bilateral primary osteoarthritis of knee Category: Medical Plan: #Bilateral knee OA Patient states that she is responding well to physical therapy exercises. No complaints today (3) Long-term use of hydroxychloroquine: Code(s): Z79.899 - Other senior living (current) drug therapy Category: Medical Plan: #Long-term Use of Hydroxychloroquine Discussed with patient the risks and benefits of hydroxychloroquine in managing the rheumatic condition Benefits include: - Reduced pain, reduce mortality, maintenance of remission and reduction of flares Risks include: - GI upset, skin hyperpigmentation, retinal toxicity (especially after more than 5 years of use), myopathy Advised yearly ophthalmology visits (4) Encounter for monitoring of methotrexate therapy: Code(s): Z51.81 - Encounter for therapeutic drug level monitoring; Z79.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 Limit alcohol and avoid Bactrim ? Monitoring: ?CBC, BMP, LFTs every 3-4 months and hepatitis serologies as needed Plan I spent 30 minutes reviewing the record and labs, taking a history, examining the patient, discussing the treatment plan, ordering diagnostic work up and documenting in the medical record Orders: Orders Comprehensive Met. Panel 5 Months D86.9 - Sarcoidosis, unspecified, Z79.899 - Other long distance operator (current) drug therapy C Reactive Protein 5 Months D86.9 - Sarcoidosis, unspecified, Z79.899 - Other senior living (current) drug therapy Erythrocyte Sedimentation Rate 5 Months D86.9 - Sarcoidosis, unspecified, Z79.899 - Other senior living (current) drug therapy Angiotensin Converting Enzyme 5 Months D86.9 - Sarcoidosis, unspecified Complete Blood Count Auto Diff 5 Months D86.9 - Sarcoidosis, unspecified, Z79.899 - Other senior living (current) drug therapy Medications: Refilled folic acid 1 mg PO DAILY 90 tabs 1RF D86.9 - Sarcoidosis, unspecified methotrexate sodium 17.5 mg (7 x 2.5 mg) PO QWEEK 91 tabs 1RF 90 days D86.9 - Sarcoidosis, unspecified hydroxychloroquine 200 mg PO BID 180 tabs 1RF D86.9 - Sarcoidosis, unspecified Coding Level of Care Code Est Pt Level 4 (33528) Complex EM visit Add On G2211 Diagnoses Sarcoidosis D86.9 Bilateral primary osteoarthritis of knee M17.0 Long-term use of hydroxychloroquine Z79.899 Encounter for monitoring of methotrexate therapy Z51.81; Z79.631
[2025-07-25 07:49] VITALS: BP 122/80; PULSE 68; O2SAT 98; BMI 37.0
== END 2025-07-25 08:05 | disposition home or self-care (01) ==
LOC: HO.RHES 07:20
PROVIDERS: PCP Family Medicine; Visit Provider Student in an Organized Health Care Education/Training Program
DX: D86.9 Sarcoidosis, unspecified (principal); M17.0 Bilateral primary osteoarthritis of knee; Z79.899 Other long term (current) drug therapy; Z51.81 Encounter for therapeutic drug level monitoring; Z79.631 Long term (current) use of antimetabolite agent
CPT/HCPCS: 99214